=== PATIENT | male | born 1945 | race Caucasian/White ===

== ENCOUNTER 2020-11-15 07:37 | Outpatient (REF) | payer MEDICARE, SELFPAY ==
[2020-11-15 13:47] LABS: MANUAL DIFF FLAG NO
[2020-11-15 13:53] LABS: Basophils Percent Auto 0.4 % (0-2); Eosinophils Absolute Auto 0.1 X10*3/uL (0.0-0.4); Eosinophils Percent Auto 1.8 % (0-4); Hematocrit 40.6 % (42-52); Hemoglobin 13.7 g/dl (14.0-18.0); Imm Gran Abs Auto 0.03 X10*3/uL (0.00-0.03); Imm Gran Pct Auto 0.4 % (0.0-0.4); Lymphocytes Absolute Auto 2.2 X10*3/uL (1.2-4.9); Lymphocytes Percent Auto 30.9 % (20-40); Mean Corpuscular HGB Conc 33.7 g/dl (31.0-36.0); Mean Corpuscular Hemoglobin 30.1 pg (27.0-33.0); Mean Corpuscular Volume 89.2 fL (80-98); Mean Platelet Volume 11.6 fL (9.4-12.4); Monocytes Absolute Auto 0.6 X10*3/uL (0.1-1.2); Neutrophils Absolute Auto 4.2 X10*3/uL (2.0-8.3); Neutrophils Percent Auto 58.5 % (45-73); Platelet Count 263 X10*3/uL (160-400); Red Blood Count 4.55 X10*6/uL (4.60-5.80); Red Cell Distribution Width 11.7 % (11.0-16.0); White Blood Count 7.1 X10*3/uL (4.8-10.8)
[2020-11-15 14:16] LABS: Alanine Aminotransferase 24 U/L (0-40); Albumin Level 4.2 g/dL (3.5-5.0); Alkaline Phosphatase 61 U/L (39-117); Anion Gap 15 (12-20); Aspartate Amino Transferase 16 U/L (5-37); Bilirubin Total 0.8 mg/dL (0.0-1.0); Blood Urea Nitrogen 21 mg/dL (9-16); Carbon Dioxide 26 mmol/L (22-29); Chloride 100 mmol/L (96-108); Cholesterol 158 mg/dL; Estimated Glomerular Filt Rate > 60; Glucose Fasting 107 mg/dL (60-99); HDL Cholesterol 28 mg/dL; LDL Cholesterol Calculated 104 mg/dl; Potassium 3.8 mmol/L (3.3-5.1); Sodium 137 mmol/L (135-145); Total Protein 6.8 g/dL (6.5-8.0); Triglycerides 131 mg/dL
[2020-11-15 14:39] LABS: Prostate Specific Antigen 0.74 ng/mL (<0.05-4.0); Vitamin D 25-OH Total 61.5 ng/mL (>30)
== END 2020-11-15 07:38 | disposition home or self-care (01) ==
LOC: HO.10HDL 07:37
PROVIDERS: Visit Provider Internal Medicine Medical Oncology
DX: I10 Essential (primary) hypertension (principal); E78.00 Pure hypercholesterolemia, unspecified; E66.3 Overweight; Z12.5 Encounter for screening for malignant neoplasm of prostate
CPT/HCPCS: 36415; 80053; 80061; 82306; 84153; 85025

== ENCOUNTER 2021-05-29 07:44 | Outpatient (REF) | payer MEDICARE, SELFPAY ==
[2021-05-29 10:12] LABS: MANUAL DIFF FLAG NO
[2021-05-29 10:23] LABS: Basophils Percent Auto 0.5 % (0-2); Eosinophils Absolute Auto 0.2 X10*3/uL (0.0-0.4); Eosinophils Percent Auto 2.2 % (0-4); Hematocrit 38.9 % (42-52); Hemoglobin 13.2 g/dl (14.0-18.0); Imm Gran Abs Auto 0.04 X10*3/uL (0.00-0.03); Imm Gran Pct Auto 0.5 % (0.0-0.4); Lymphocytes Absolute Auto 2.6 X10*3/uL (1.2-4.9); Lymphocytes Percent Auto 31.7 % (20-40); Mean Corpuscular HGB Conc 33.9 g/dl (31.0-36.0); Mean Corpuscular Hemoglobin 29.1 pg (27.0-33.0); Mean Corpuscular Volume 85.7 fL (80-98); Mean Platelet Volume 11.2 fL (9.4-12.4); Monocytes Absolute Auto 0.7 X10*3/uL (0.1-1.2); Neutrophils Absolute Auto 4.7 X10*3/uL (2.0-8.3); Neutrophils Percent Auto 57.1 % (45-73); Platelet Count 263 X10*3/uL (160-400); Red Blood Count 4.54 X10*6/uL (4.60-5.80); Red Cell Distribution Width 13.3 % (11.0-16.0); White Blood Count 8.2 X10*3/uL (4.8-10.8)
[2021-05-29 11:24] LABS: Alanine Aminotransferase 25 U/L (0-40); Albumin Level 4.1 g/dL (3.5-5.0); Alkaline Phosphatase 54 U/L (39-117); Anion Gap 13 (12-20); Aspartate Amino Transferase 17 U/L (5-37); Bilirubin Total 0.9 mg/dL (0.0-1.0); Blood Urea Nitrogen 15 mg/dL (9-16); Carbon Dioxide 25 mmol/L (22-29); Chloride 100 mmol/L (96-108); Cholesterol 154 mg/dL; Estimated Glomerular Filt Rate > 60; Glucose Fasting 104 mg/dL (60-99); HDL Cholesterol 35 mg/dL; LDL Cholesterol Calculated 92 mg/dl; Sodium 134 mmol/L (135-145); Total Protein 6.5 g/dL (6.5-8.0); Triglycerides 135 mg/dL
== END 2021-05-29 07:45 | disposition home or self-care (01) ==
LOC: HO.10HDL 07:44
PROVIDERS: Visit Provider Internal Medicine Medical Oncology
DX: I10 Essential (primary) hypertension (principal); E66.9 Obesity, unspecified; E78.2 Mixed hyperlipidemia
CPT/HCPCS: 36415; 80053; 80061; 85025

== ENCOUNTER 2021-08-31 08:00 | Outpatient (REF) | payer MEDICARE, SELFPAY ==
[2021-08-31 10:21] LABS: MANUAL DIFF FLAG NO
[2021-08-31 10:29] LABS: Basophils Percent Auto 0.3 % (0-2); Eosinophils Absolute Auto 0.1 X10*3/uL (0.0-0.4); Hematocrit 41.3 % (42.0-52.0); Hemoglobin 14.1 g/dl (14.0-18.0); Imm Gran Abs Auto 0.05 X10*3/uL (0.00-0.03); Imm Gran Pct Auto 0.5 % (0.0-0.4); Lymphocytes Absolute Auto 2.5 X10*3/uL (1.2-4.9); Lymphocytes Percent Auto 27.8 % (20-40); Mean Corpuscular HGB Conc 34.1 g/dl (31.0-36.0); Mean Corpuscular Hemoglobin 29.8 pg (27.0-33.0); Mean Corpuscular Volume 87.3 fL (80.0-98.0); Mean Platelet Volume 10.9 fL (9.4-12.4); Monocytes Absolute Auto 0.8 X10*3/uL (0.1-1.2); Monocytes Percent Auto 8.6 % (2-11); Neutrophils Absolute Auto 5.6 x10*3/uL (2.0-8.3); Neutrophils Percent Auto 61.8 % (45-73); Platelet Count 304 X10*3/uL (160-400); Red Blood Count 4.73 X10*6/uL (4.60-5.80); Red Cell Distribution Width 13.1 % (11.0-16.0); White Blood Count 9.1 X10*3/uL (4.8-10.8)
[2021-08-31 10:45] LABS: Alanine Aminotransferase 30 U/L (0-40); Albumin Level 4.2 g/dL (3.5-5.0); Alkaline Phosphatase 75 U/L (39-117); Anion Gap 13 (12-20); Aspartate Amino Transferase 15 U/L (5-37); Bilirubin Total 1.1 mg/dL (0.0-1.0); Blood Urea Nitrogen 18 mg/dL (9-16); Calcium 9.3 mg/dL (8.4-10.2); Carbon Dioxide 27 mmol/L (22-29); Chloride 96 mmol/L (96-108); Cholesterol 155 mg/dL; Estimated Glomerular Filt Rate > 60; Glucose Fasting 110 mg/dL (60-99); HDL Cholesterol 30 mg/dL; LDL Cholesterol Calculated 97 mg/dl; Potassium 3.9 mmol/L (3.3-5.1); Sodium 132 mmol/L (135-145); Total Protein 6.8 g/dL (6.5-8.0); Triglycerides 142 mg/dL
== END 2021-08-31 08:01 | disposition home or self-care (01) ==
LOC: HO.10HDL 08:00
PROVIDERS: Visit Provider Internal Medicine Medical Oncology
DX: E66.9 Obesity, unspecified (principal); I10 Essential (primary) hypertension; E78.2 Mixed hyperlipidemia
CPT/HCPCS: 36415; 80053; 80061; 85025

== ENCOUNTER 2022-01-08 09:22 | Outpatient (REF) | payer MEDICARE, SELFPAY ==
[2022-01-08 10:39] LABS: MANUAL DIFF FLAG NO
[2022-01-08 10:43] LABS: Basophils Percent Auto 0.5 % (0-2); Eosinophils Absolute Auto 0.2 X10*3/uL (0.0-0.4); Hematocrit 40.9 % (42.0-52.0); Hemoglobin 13.8 g/dl (14.0-18.0); Imm Gran Abs Auto 0.04 X10*3/uL (0.00-0.03); Imm Gran Pct Auto 0.5 % (0.0-0.4); Lymphocytes Absolute Auto 1.9 X10*3/uL (1.2-4.9); Lymphocytes Percent Auto 25.3 % (20-40); Mean Corpuscular HGB Conc 33.7 g/dl (31.0-36.0); Mean Corpuscular Hemoglobin 29.8 pg (27.0-33.0); Mean Corpuscular Volume 88.3 fL (80.0-98.0); Mean Platelet Volume 11.3 fL (9.4-12.4); Monocytes Absolute Auto 0.6 X10*3/uL (0.1-1.2); Monocytes Percent Auto 7.7 % (2-11); Neutrophils Absolute Auto 4.9 x10*3/uL (2.0-8.3); Platelet Count 267 X10*3/uL (160-400); Red Blood Count 4.63 X10*6/uL (4.60-5.80); Red Cell Distribution Width 13.4 % (11.0-16.0); White Blood Count 7.6 X10*3/uL (4.8-10.8)
[2022-01-08 10:58] LABS: Alanine Aminotransferase 29 U/L (0-40); Albumin Level 4.1 g/dL (3.5-5.0); Alkaline Phosphatase 53 U/L (39-117); Anion Gap 13 (12-20); Aspartate Amino Transferase 18 U/L (5-37); Bilirubin Total 0.4 mg/dL (0.0-1.0); Blood Urea Nitrogen 17 mg/dL (9-16); Calcium 9.6 mg/dL (8.4-10.2); Carbon Dioxide 26 mmol/L (22-29); Chloride 99 mmol/L (96-108); Cholesterol 152 mg/dL; Estimated Glomerular Filt Rate > 60; Glucose Fasting 123 mg/dL (60-99); HDL Cholesterol 33 mg/dL; LDL Cholesterol Calculated 87 mg/dl; Potassium 4.2 mmol/L (3.3-5.1); Sodium 134 mmol/L (135-145); Total Protein 6.8 g/dL (6.5-8.0); Triglycerides 161 mg/dL
[2022-01-08 11:13] LABS: PSA,Total (Free>4and<10) 0.51 ng/mL (0.00-4.00)
== END 2022-01-08 09:23 | disposition home or self-care (01) ==
LOC: HO.10HDL 09:22
PROVIDERS: Visit Provider Internal Medicine Medical Oncology
DX: Z12.5 Encounter for screening for malignant neoplasm of prostate (principal); E78.2 Mixed hyperlipidemia; E66.9 Obesity, unspecified
CPT/HCPCS: 36415; 80053; 80061; 84153; 85025

== ENCOUNTER 2022-04-30 08:07 | Outpatient (REF) | payer MEDICARE, SELFPAY ==
[2022-04-30 09:25] LABS: MANUAL DIFF FLAG NO
[2022-04-30 09:28] LABS: Basophils Percent Auto 0.5 % (0-2); Eosinophils Absolute Auto 0.2 X10*3/uL (0.0-0.4); Eosinophils Percent Auto 2.8 % (0-4); Hematocrit 39.5 % (42.0-52.0); Hemoglobin 13.5 g/dl (14.0-18.0); Imm Gran Abs Auto 0.04 X10*3/uL (0.00-0.03); Imm Gran Pct Auto 0.5 % (0.0-0.4); Lymphocytes Absolute Auto 2.3 X10*3/uL (1.2-4.9); Lymphocytes Percent Auto 29.7 % (20-40); Mean Corpuscular HGB Conc 34.2 g/dl (31.0-36.0); Mean Corpuscular Hemoglobin 29.8 pg (27.0-33.0); Mean Corpuscular Volume 87.2 fL (80.0-98.0); Mean Platelet Volume 10.6 fL (9.4-12.4); Monocytes Absolute Auto 0.6 X10*3/uL (0.1-1.2); Monocytes Percent Auto 7.9 % (2-11); Neutrophils Absolute Auto 4.6 x10*3/uL (2.0-8.3); Neutrophils Percent Auto 58.6 % (45-73); Platelet Count 247 X10*3/uL (160-400); Red Blood Count 4.53 X10*6/uL (4.60-5.80); Red Cell Distribution Width 12.5 % (11.0-16.0); White Blood Count 7.8 X10*3/uL (4.8-10.8)
[2022-04-30 09:54] LABS: Alanine Aminotransferase 22 U/L (0-40); Alkaline Phosphatase 58 U/L (39-117); Anion Gap 15 (12-20); Aspartate Amino Transferase 16 U/L (5-37); Bilirubin Total 0.7 mg/dL (0.0-1.0); Blood Urea Nitrogen 13 mg/dL (9-16); Calcium 8.8 mg/dL (8.4-10.2); Carbon Dioxide 23 mmol/L (22-29); Chloride 100 mmol/L (96-108); Cholesterol 153 mg/dL; Estimated Glomerular Filt Rate > 60; Glucose Fasting 125 mg/dL (60-99); HDL Cholesterol 38 mg/dL; LDL Cholesterol Calculated 89 mg/dl; Potassium 4.2 mmol/L (3.3-5.1); Sodium 134 mmol/L (135-145); Total Protein 6.6 g/dL (6.5-8.0); Triglycerides 130 mg/dL
[2022-04-30 10:17] LABS: Vitamin D 25-OH Total 39.7 ng/mL (>30)
== END 2022-04-30 08:08 | disposition home or self-care (01) ==
LOC: HO.10HDL 08:07
PROVIDERS: Visit Provider Internal Medicine Medical Oncology
DX: I10 Essential (primary) hypertension (principal); E78.2 Mixed hyperlipidemia; N40.0 Benign prostatic hyperplasia without lower urinary tract symptoms; E55.9 Vitamin D deficiency, unspecified
CPT/HCPCS: 36415; 80053; 80061; 82306; 85025

== ENCOUNTER 2022-09-10 07:31 | Outpatient (REF) | payer MEDICARE, SELFPAY ==
[2022-09-10 10:49] LABS: MANUAL DIFF FLAG NO
[2022-09-10 10:54] LABS: Basophils Percent Auto 0.3 % (0-2); Eosinophils Absolute Auto 0.2 X10*3/uL (0.0-0.4); Eosinophils Percent Auto 1.7 % (0-4); Hemoglobin 13.1 g/dl (14.0-18.0); Imm Gran Abs Auto 0.07 X10*3/uL (0.00-0.03); Imm Gran Pct Auto 0.8 % (0.0-0.4); Lymphocytes Absolute Auto 2.8 X10*3/uL (1.2-4.9); Lymphocytes Percent Auto 31.2 % (20-40); Mean Corpuscular HGB Conc 34.5 g/dl (31.0-36.0); Mean Corpuscular Hemoglobin 29.6 pg (27.0-33.0); Monocytes Absolute Auto 0.8 X10*3/uL (0.1-1.2); Monocytes Percent Auto 8.5 % (2-11); Neutrophils Absolute Auto 5.2 x10*3/uL (2.0-8.3); Neutrophils Percent Auto 57.5 % (45-73); Platelet Count 328 X10*3/uL (160-400); Red Blood Count 4.42 X10*6/uL (4.60-5.80); White Blood Count 9.1 X10*3/uL (4.8-10.8)
[2022-09-10 11:43] LABS: Alanine Aminotransferase 26 U/L (0-40); Albumin Level 4.1 g/dL (3.5-5.0); Alkaline Phosphatase 63 U/L (39-117); Anion Gap 13 (12-20); Aspartate Amino Transferase 16 U/L (5-37); Bilirubin Total 0.7 mg/dL (0.0-1.0); Blood Urea Nitrogen 21 mg/dL (9-16); Carbon Dioxide 24 mmol/L (22-29); Chloride 99 mmol/L (96-108); Cholesterol 174 mg/dL; Estimated Glomerular Filt Rate > 60; Glucose Fasting 119 mg/dL (60-99); HDL Cholesterol 29 mg/dL; LDL Cholesterol Calculated 111 mg/dl; Potassium 4.1 mmol/L (3.3-5.1); Prostate Specific Antigen 0.56 ng/mL (<0.05-4.0); Sodium 132 mmol/L (135-145); Total Protein 6.6 g/dL (6.5-8.0); Triglycerides 173 mg/dL; Vitamin D 25-OH Total 44.1 ng/mL (>30)
== END 2022-09-10 07:32 | disposition home or self-care (01) ==
LOC: HO.10HDL 07:31
PROVIDERS: Visit Provider Internal Medicine Medical Oncology
DX: Z12.5 Encounter for screening for malignant neoplasm of prostate (principal); I10 Essential (primary) hypertension; E66.9 Obesity, unspecified; E78.2 Mixed hyperlipidemia; N40.0 Benign prostatic hyperplasia without lower urinary tract symptoms
CPT/HCPCS: 36415; 80053; 80061; 82306; 84153; 85025

== ENCOUNTER 2023-01-01 08:53 | Outpatient (REF) | payer MEDICARE, SELFPAY ==
[2023-01-01 10:45] LABS: MANUAL DIFF FLAG NO
[2023-01-01 10:56] LABS: Basophils Absolute Auto 0.1 X10*3/uL (0.0-0.2); Basophils Percent Auto 0.6 % (0-2); Eosinophils Absolute Auto 0.1 X10*3/uL (0.0-0.4); Eosinophils Percent Auto 1.7 % (0-4); Hematocrit 41.2 % (42.0-52.0); Hemoglobin 13.9 g/dl (14.0-18.0); Imm Gran Abs Auto 0.05 X10*3/uL (0.00-0.03); Imm Gran Pct Auto 0.6 % (0.0-0.4); Lymphocytes Absolute Auto 2.3 X10*3/uL (1.2-4.9); Lymphocytes Percent Auto 27.4 % (20-40); Mean Corpuscular HGB Conc 33.7 g/dl (31.0-36.0); Mean Corpuscular Volume 85.8 fL (80.0-98.0); Mean Platelet Volume 11.2 fL (9.4-12.4); Monocytes Absolute Auto 0.7 X10*3/uL (0.1-1.2); Monocytes Percent Auto 8.1 % (2-11); Neutrophils Absolute Auto 5.2 x10*3/uL (2.0-8.3); Neutrophils Percent Auto 61.6 % (45-73); Platelet Count 271 X10*3/uL (160-400); Red Cell Distribution Width 12.9 % (11.0-16.0); White Blood Count 8.4 X10*3/uL (4.8-10.8)
[2023-01-01 11:15] LABS: Alanine Aminotransferase 26 U/L (0-40); Albumin Level 3.9 g/dL (3.5-5.0); Alkaline Phosphatase 62 U/L (39-117); Anion Gap 16 (12-20); Aspartate Amino Transferase 16 U/L (5-37); Bilirubin Total 1.2 mg/dL (0.0-1.0); Blood Urea Nitrogen 20 mg/dL (9-16); Calcium 9.1 mg/dL (8.4-10.2); Carbon Dioxide 24 mmol/L (22-29); Chloride 99 mmol/L (96-108); Cholesterol 169 mg/dL; Estimated Glomerular Filt Rate > 60; Glucose Fasting 129 mg/dL (60-99); HDL Cholesterol 30 mg/dL; LDL Cholesterol Calculated 110 mg/dl; Potassium 4.1 mmol/L (3.3-5.1); Sodium 135 mmol/L (135-145); Total Protein 6.5 g/dL (6.5-8.0); Triglycerides 149 mg/dL
[2023-01-01 11:52] LABS: Vitamin D 25-OH Total > 154.2 ng/mL (>30)
== END 2023-01-01 08:54 | disposition home or self-care (01) ==
LOC: HO.10HDL 08:53
PROVIDERS: Visit Provider Internal Medicine Medical Oncology
DX: I10 Essential (primary) hypertension (principal); E66.9 Obesity, unspecified; E78.2 Mixed hyperlipidemia; E55.9 Vitamin D deficiency, unspecified
CPT/HCPCS: 36415; 80053; 80061; 82306; 85025

== ENCOUNTER 2023-05-07 09:02 | Outpatient (REF) | payer MEDICARE, SELFPAY ==
[2023-05-07 11:05] LABS: MANUAL DIFF FLAG NO
[2023-05-07 11:08] LABS: Basophils Absolute Auto 0.1 X10*3/uL (0.0-0.2); Basophils Percent Auto 0.6 % (0-2); Eosinophils Absolute Auto 0.2 X10*3/uL (0.0-0.4); Eosinophils Percent Auto 2.1 % (0-4); Hematocrit 40.8 % (42.0-52.0); Hemoglobin 13.5 g/dl (14.0-18.0); Imm Gran Abs Auto 0.06 X10*3/uL (0.00-0.03); Imm Gran Pct Auto 0.7 % (0.0-0.4); Lymphocytes Absolute Auto 2.1 X10*3/uL (1.2-4.9); Lymphocytes Percent Auto 25.2 % (20-40); Mean Corpuscular HGB Conc 33.1 g/dl (31.0-36.0); Mean Corpuscular Hemoglobin 28.5 pg (27.0-33.0); Mean Corpuscular Volume 86.3 fL (80.0-98.0); Mean Platelet Volume 10.9 fL (9.4-12.4); Monocytes Absolute Auto 0.7 X10*3/uL (0.1-1.2); Monocytes Percent Auto 7.9 % (2-11); Neutrophils Absolute Auto 5.3 x10*3/uL (2.0-8.3); Neutrophils Percent Auto 63.5 % (45-73); Platelet Count 277 X10*3/uL (160-400); Red Blood Count 4.73 X10*6/uL (4.60-5.80); White Blood Count 8.4 X10*3/uL (4.8-10.8)
[2023-05-07 12:10] LABS: Alanine Aminotransferase 22 U/L (0-40); Albumin Level 3.7 g/dL (3.5-5.0); Alkaline Phosphatase 55 U/L (39-117); Anion Gap 11 (12-20); Aspartate Amino Transferase 19 U/L (5-37); Bilirubin Total 0.7 mg/dL (0.0-1.0); Blood Urea Nitrogen 16 mg/dL (9-16); Calcium 9.3 mg/dL (8.4-10.2); Carbon Dioxide 26 mmol/L (22-29); Chloride 100 mmol/L (96-108); Cholesterol 134 mg/dL; Estimated Glomerular Filt Rate > 60; Glucose Fasting 133 mg/dL (60-99); HDL Cholesterol 32 mg/dL; LDL Cholesterol Calculated 75 mg/dl; Potassium 3.9 mmol/L (3.3-5.1); Sodium 133 mmol/L (135-145); Total Protein 6.8 g/dL (6.5-8.0); Triglycerides 139 mg/dL
== END 2023-05-07 09:03 | disposition home or self-care (01) ==
LOC: HO.10HDL 09:02
PROVIDERS: Visit Provider Internal Medicine Medical Oncology
DX: E66.9 Obesity, unspecified (principal); I10 Essential (primary) hypertension; E78.2 Mixed hyperlipidemia; E55.9 Vitamin D deficiency, unspecified
CPT/HCPCS: 36415; 80053; 80061; 82306; 85025

== ENCOUNTER 2023-09-09 07:39 | Outpatient (REF) | payer MEDICARE, SELFPAY ==
[2023-09-09 10:29] LABS: MANUAL DIFF FLAG NO
[2023-09-09 10:35] LABS: Basophils Percent Auto 0.4 % (0-2); Eosinophils Absolute Auto 0.2 X10*3/uL (0.0-0.4); Eosinophils Percent Auto 2.3 % (0-4); Hematocrit 40.6 % (42.0-52.0); Hemoglobin 13.5 g/dl (14.0-18.0); Imm Gran Abs Auto 0.03 X10*3/uL (0.00-0.03); Imm Gran Pct Auto 0.4 % (0.0-0.4); Lymphocytes Absolute Auto 2.2 X10*3/uL (1.2-4.9); Lymphocytes Percent Auto 28.3 % (20-40); Mean Corpuscular HGB Conc 33.3 g/dl (31.0-36.0); Mean Corpuscular Hemoglobin 29.2 pg (27.0-33.0); Mean Corpuscular Volume 87.9 fL (80.0-98.0); Monocytes Absolute Auto 0.7 X10*3/uL (0.1-1.2); Monocytes Percent Auto 8.6 % (2-11); Neutrophils Absolute Auto 4.6 x10*3/uL (2.0-8.3); Platelet Count 252 X10*3/uL (160-400); Red Blood Count 4.62 X10*6/uL (4.60-5.80); Red Cell Distribution Width 13.3 % (11.0-16.0); White Blood Count 7.7 X10*3/uL (4.8-10.8)
[2023-09-09 11:06] LABS: Alanine Aminotransferase 27 U/L (0-40); Albumin Level 3.9 g/dL (3.5-5.0); Alkaline Phosphatase 58 U/L (39-117); Anion Gap 13 (12-20); Aspartate Amino Transferase 17 U/L (5-37); Bilirubin Total 0.8 mg/dL (0.0-1.0); Blood Urea Nitrogen 18 mg/dL (9-16); Calcium 9.3 mg/dL (8.4-10.2); Carbon Dioxide 25 mmol/L (22-29); Chloride 102 mmol/L (96-108); Cholesterol 153 mg/dL (<200); Estimated Glomerular Filt Rate > 60; Glucose Fasting 133 mg/dL (60-99); HDL Cholesterol 31 mg/dL (>40); LDL Cholesterol Calculated 92 mg/dL (<100); Potassium 3.5 mmol/L (3.3-5.1); Sodium 136 mmol/L (135-145); Total Protein 6.8 g/dL (6.5-8.0); Triglycerides 151 mg/dL (<150)
[2023-09-09 11:23] LABS: Prostate Specific Antigen 0.68 ng/mL (<0.05-4.0)
== END 2023-09-09 07:40 | disposition home or self-care (01) ==
LOC: HO.10HDL 07:39
PROVIDERS: Visit Provider Internal Medicine Medical Oncology
DX: Z12.5 Encounter for screening for malignant neoplasm of prostate (principal); E66.9 Obesity, unspecified; E78.2 Mixed hyperlipidemia; N40.0 Benign prostatic hyperplasia without lower urinary tract symptoms
CPT/HCPCS: 36415; 80053; 80061; 84153; 85025

== ENCOUNTER 2024-03-26 07:28 | Outpatient (REF) | payer MEDICARE, SELFPAY ==
[2024-03-26 10:42] LABS: Basophils Percent Auto 0.5 % (0-2); Eosinophils Absolute Auto 0.2 X10*3/uL (0.0-0.4); Eosinophils Percent Auto 1.9 % (0-4); Hematocrit 39.7 % (42.0-52.0); Hemoglobin 13.7 g/dl (14.0-18.0); Imm Gran Abs Auto 0.03 X10*3/uL (0.00-0.03); Imm Gran Pct Auto 0.4 % (0.0-0.4); Lymphocytes Absolute Auto 2.5 X10*3/uL (1.2-4.9); Lymphocytes Percent Auto 31.7 % (20-40); MANUAL DIFF FLAG NO; Mean Corpuscular HGB Conc 34.5 g/dl (31.0-36.0); Mean Corpuscular Hemoglobin 29.8 pg (27.0-33.0); Mean Corpuscular Volume 86.5 fL (80.0-98.0); Mean Platelet Volume 10.7 fL (9.4-12.4); Monocytes Absolute Auto 0.7 X10*3/uL (0.1-1.2); Monocytes Percent Auto 8.5 % (2-11); Neutrophils Absolute Auto 4.4 x10*3/uL (2.0-8.3); Platelet Count 264 X10*3/uL (160-400); Red Blood Count 4.59 X10*6/uL (4.60-5.80); Red Cell Distribution Width 13.1 % (11.0-16.0); White Blood Count 7.8 X10*3/uL (4.8-10.8)
[2024-03-26 11:02] LABS: Alanine Aminotransferase 29 U/L (0-40); Alkaline Phosphatase 52 U/L (39-117); Anion Gap 12 (12-20); Aspartate Amino Transferase 21 U/L (5-37); Bilirubin Total 0.9 mg/dL (0.0-1.0); Blood Urea Nitrogen 15 mg/dL (9-16); Calcium 9.1 mg/dL (8.4-10.2); Carbon Dioxide 24 mmol/L (22-29); Chloride 99 mmol/L (96-108); Cholesterol 157 mg/dL (<200); Estimated Glomerular Filt Rate > 60; Glucose Fasting 133 mg/dL (60-99); HDL Cholesterol 32 mg/dL (>40); LDL Cholesterol Calculated 94 mg/dL (<100); Potassium 3.7 mmol/L (3.3-5.1); Sodium 131 mmol/L (135-145); Total Protein 6.8 g/dL (6.5-8.0); Triglycerides 158 mg/dL (<150)
== END 2024-03-26 07:29 | disposition home or self-care (01) ==
LOC: HO.10HDL 07:28
PROVIDERS: Visit Provider Internal Medicine Medical Oncology
DX: E66.9 Obesity, unspecified (principal); E78.2 Mixed hyperlipidemia
CPT/HCPCS: 36415; 80053; 80061; 85025

== ENCOUNTER 2024-07-14 08:46 | Outpatient (REF) | payer MEDICARE, SELFPAY ==
[2024-07-14 11:00] LABS: MANUAL DIFF FLAG NO
[2024-07-14 11:01] LABS: Basophils Absolute Auto 0.1 X10*3/uL (0.0-0.2); Basophils Percent Auto 0.6 % (0-2); Eosinophils Absolute Auto 0.2 X10*3/uL (0.0-0.4); Hematocrit 40.1 % (42.0-52.0); Hemoglobin 13.6 g/dl (14.0-18.0); Imm Gran Abs Auto 0.05 X10*3/uL (0.00-0.03); Imm Gran Pct Auto 0.6 % (0.0-0.4); Lymphocytes Absolute Auto 2.2 X10*3/uL (1.2-4.9); Lymphocytes Percent Auto 26.1 % (20-40); Mean Corpuscular HGB Conc 33.9 g/dl (31.0-36.0); Mean Corpuscular Hemoglobin 30.2 pg (27.0-33.0); Mean Corpuscular Volume 89.1 fL (80.0-98.0); Mean Platelet Volume 10.6 fL (9.4-12.4); Monocytes Absolute Auto 0.6 X10*3/uL (0.1-1.2); Monocytes Percent Auto 7.1 % (2-11); Neutrophils Absolute Auto 5.5 x10*3/uL (2.0-8.3); Neutrophils Percent Auto 63.6 % (45-73); Platelet Count 266 X10*3/uL (160-400); Red Cell Distribution Width 13.6 % (11.0-16.0); White Blood Count 8.6 X10*3/uL (4.8-10.8)
[2024-07-14 11:10] LABS: Estimated Average Glucose 143 mg/dL; Hemoglobin A1C 166.4889 umol/L; Hemoglobin A1c % 6.6 % (<6.0); Total Hemoglobin (HGBA1C) 3453.9074 umol/L
[2024-07-14 11:30] LABS: Alanine Aminotransferase 27 U/L (0-40); Alkaline Phosphatase 51 U/L (39-117); Anion Gap 10 (12-20); Aspartate Amino Transferase 17 U/L (5-37); Bilirubin Total 0.7 mg/dL (0.0-1.0); Blood Urea Nitrogen 19 mg/dL (9-16); Calcium 9.4 mg/dL (8.4-10.2); Carbon Dioxide 28 mmol/L (22-29); Chloride 102 mmol/L (96-108); Cholesterol 158 mg/dL (<200); Estimated Glomerular Filt Rate > 60; Glucose Fasting 134 mg/dL (60-99); HDL Cholesterol 31 mg/dL (>40); LDL Cholesterol Calculated 99 mg/dL (<100); Sodium 136 mmol/L (135-145); Total Protein 6.8 g/dL (6.5-8.0); Triglycerides 142 mg/dL (<150)
== END 2024-07-14 08:47 | disposition home or self-care (01) ==
LOC: HO.10HDL 08:46
PROVIDERS: Visit Provider Internal Medicine Medical Oncology
DX: Z13.1 Encounter for screening for diabetes mellitus (principal); E66.9 Obesity, unspecified; E78.00 Pure hypercholesterolemia, unspecified; E78.2 Mixed hyperlipidemia
CPT/HCPCS: 36415; 80053; 80061; 83036; 85025

== ENCOUNTER 2024-09-24 09:40 | Outpatient (REF) | payer MEDICARE, SELFPAY ==
--- OUTSIDE RECORDS SUMMARY | 2024-09-24 09:44 | XMS_ITS ---
Author Organization Elías Rangel III, MD Address [address] [place] [address] Care Team Providers Care Application Helper Name Role Phone Elías Rangel Primary Care Provider Allergies Allergen (clinical drug ingredient) Drug/Non Drug Allergy documented on EMR Reaction Allergy Type Onset Date Status penicillin G Penicillin G Sodium Unknown Drug Allergy Active REASON FOR VISIT sprained leg hunting left thigh end oct cdh er no fx then pvsands Medications Medication SIG (Take, Route, Frequency, Duration) Notes Start Date End Date Status Lisinopril 40 MG 1 tablet Orally Once a day Active Omeprazole 20 MG 1 tablet 30 minutes before morning meal Orally Once a day Active Vitamin D 50 MCG (1999) 1 capsule Ora lly Once a day Active Aspir-Low 81 MG 1 tablet Orally Once a day Active Anusol-HC 25 MG 1 suppository Rectal Three times a day Active Atorvastatin Calcium 10 MG 1 tablet Oral ly Saturday, Saturday, and Saturday Active hydroCHLOROthiazide 25 MG 1 tablet in morning Orally Once a day Active Amitriptyline HCl 25 MG 1 tablet at bedt rey Orally Once a day Active Metoprolol Succinate ER 50 MG 1.5 tablet s Orally Once a day 11/08/2020 Active Social History Tobacco Use: Social History Observation Description Date Details (start date - stop date) Never Smoker NA - NA Sex Assigned At : Social History Observation Description Sex Assigned At Male Tobacco Use/Smoking Question Answer Notes Patient is a nonsmoker Additional Findings: Tobacco Non-User Aggressive non-smoker Vital Signs Temperature 97.9 degrees Fahrenheit 09/24/20 24 Blood pressure systolic 175 mm Hg 09/24/20 24 Blood pressure diastolic 89 mm Hg 024 Heart Rate 61 /min 09/24/2024 Height 64 in 09/24/2024 Weight 201 lbs 09/24/2024 BMI 34.5 kg/m2 09/24/2024 Encounters Encounter Location Date Provider Diagnosis Elías Rangel III, MD [address] [place] [address] [place] [address] 09/24/2024 Elías Rangel Obesity (BMI 30.0-34 .9) E66.9 ; Mixed hyperlipidemia E78.2 ; BPH (benign prostatic hyperplasia) N40.0 and Prediabetes R73.03 Assessments Encounter Date Diagnosis (ICD Code) Assessment Notes Treat ment Notes Treatment Clinical Notes 09/24/2024 Obesity (BMI 30.0-34.9) (ICD-10 - E66.9) He has lost 5 pounds. We discussed his weight loss strategy at length. He will try to lose weight at a rate of one half of a pound per week through a diet restricted in fat calories and sodium combined with regular exercise. 09/24/2024 Mixed hyperlipidemia (ICD-10 - E78.2) 09/24/2024 BPH (benign prostati c hyperplasia) (ICD-10 - N40.0) 09/24/2024 Prediabetes (ICD-10 - R73.03) Plan Of Treatment Medication Medication Name Sig Start Date Stop Date Notes Lisinopril 40 MG 1 tablet Orally Once a day Omeprazole 20 MG 1 tablet 30 minutes before morning meal Orally Once a day Vitamin D 50 MCG (1999) 1 capsule Orally Once a day Aspir-Low 81 MG 1 tablet Orally Once a day Anusol-HC 25 MG 1 suppository Rectal Three times a day Atorvastatin Calcium 10 MG 1 tablet Oral ly Saturday, Saturday, and Saturday hydroCHLOROthiazide 25 MG 1 tablet in morning Orally Once a day Amitriptyline HCl 25 MG 1 tablet at bedt rey Orally Once a day Metoprolol Succinate ER 50 MG 1.5 tablet s Orally Once a day 11/08/2020 Pending Test Test Name Order Date PROFILE, FASTING (COMPREHENSIVE METABOLI C) 09/24/2024 PSA, TOTAL 09/24/2024 CBC WITH AUTO DIFF 09/24/2024 Lipid Panel 09/24/2024 Hemoglobin A1c 09/24/2024 Next Appt Details Follow Up: 4 Months, Reason: OV Provider Name:Elías Rangel, 12/07/2024 02:00:00 PM, [address], [place], [address], Progress Notes * KORY ELI DDOB: [birth year] (79 yo M)Acc No.[id number]:09/24/2024 Progress Notes Patient:?KORY ELI Provider:?Elías Rangel MD :1945???Age:79 Y???Sex:Male Hossein e:09/24/2024 Address:[address] [place], [place] [address] Subjective: * Chief Complaints: * ???1. Sprained leg hunting l eft thigh end jun cdh er no fx then pvsands. * HPI: ???COVID-19 Screening:?Questions?Have you had any new onset fever, chills, cough, congestion, sore throat, shortness of breath, muscle aches??No * ROS:?General/Constitutional:?pain?only normal aches and pains.?Chills?denies.?Fatigue?admits.?Fever?denies.?ENT:?Decreased hearing?denies.?Respiratory:?Cough?denies.?Cardiovascular:?Chest pain with exertion?denies.?Dyspnea on exertion?denies.?Shortness of breath?denies.?Gastrointestinal:?Constipation?denies.?Decreased appetite?denies.?Diarrhea?denies.?Heartburn?denies.?Nausea?denies.?Rectal bleeding?denies.?Vomiting?denies.?Hematology:?bruising?denies.?petechiae?denies.?Swollen glands?none have been noted.?Genitourinary:?Frequent urination?denies.?Musculoskeletal:?Muscle aches?denies.?Painful joints?denies.?Sciatica?denies.?Weakness?denies.?Skin:?Itching?denies.?Rash?denies.?Skin lesion(s)?denies.?Neurologic:?Difficulty speaking?denies.?Dizziness?denies.?Headache?denies.?Low back pain?denies.?Psychiatric:?Depressed mood?denies.? * Medical History:?GERD (gastr oesophageal reflux disease), Hypertension, Depression, Hyperlipidemia, Allergic to penicillin, Obesity, Hemorrhoids, Hearing loss, Tendinitis, PTSD. * Surgical History:?No history . * Hospitalization/Major Diagno stic Procedure:?diverticulitis [facility] 02/2020, No history . * Family History:?Father: dece ased 74 yrs, Obstruction of carotid artery, diabetes mellitus, coronary artery disease.?Mother: 91 yrs, Anxiety and hypotension.?Siblings: alive.?1 brother(s) . 2 son(s) . .? He says his sons are healthy and well. He has 1 brother that has no information about his health. One son has hypertension. He is not aware of any family history of mental illness or substance use disorder or addiction. * Social History:?Tobacco Use:?Tobacco Use/Smoking?Patient is a?nonsmoker ?Additional Findings: Tobacco Non-User?Aggressive non-smoker ???He was born in [facility]. He worked in the [employer] in [place]. 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 He has 2 sons Hugo Burnette. He is . He lives in [facility]. He is a . His blood type is A+. * Medications:?Taking Metoprol ol Succinate ER 50 MG Tablet Extended Release 24 Hour 1.5 tablets Orally Once a day , Taking Aspir-Low 81 MG Tablet Delayed Release 1 tablet Orally Once a day , Taking Omeprazole 20 MG Tablet Delayed Release 1 tablet 30 minutes before morning meal Orally Once a day , Taking Vitamin D 50 MCG (1999 UT) Capsule 1 capsule Orally Once a day , Taking Anusol-HC 25 MG Suppository 1 suppository Rectal Three times a day , Taking Lisinopril 40 MG Tablet 1 tablet Orally Once a day , Taking Atorvastatin Calcium 10 MG Tablet 1 tablet Orally Saturday, Saturday, and Saturday , Taking Amitriptyline HCl 25 MG Tablet 1 tablet at bedtime Orally Once a day , Taking hydroCHLOROthiazide 25 MG Tablet 1 tablet in the morning Orally Once a day , Medication List reviewed and reconciled with the patient * Allergies:?Penicillin G Sodi um. Objective: * Vitals:?Ht: 64, Wt:201, BMI: 34.5, BP:175/89, HR:61, Temp:97.9, Wt-k.17. * ???Past Orders: Lab:Complete Blood Count Aut o Diff * Collection Date 07/14/2024 03/26/2024 09/09/2023 Collection Time 09:00 AM 07:30 AM 07:50 AM Order Date 07/14/2024 03/26/2024 09/09/2023 White Blood Count 8.6 (Ref Range: 4.8-10.8 X10*3/uL) 7.8 (Ref Range: 4.8-10.8 X10*3/uL) 7.7 (Ref Range: 4.8-10.8 X10*3/uL) Red Blood Count 4.50?L (Ref Range: 4.60-5.80 X10*6/uL) 4.59?L (Ref Range: 4.60-5.80 X10*6/uL) 4.62 (Ref Range: 4.60-5.80 X10*6/uL) Hemoglobin 13.6?L (Ref Range: 14.0-18.0 g/dl) 13.7?L (Ref Range: 14.0-18.0 g/dl) 13.5?L (Ref Range: 14.0-18.0 g/dl) Hematocrit 40.1?L (Ref Range: 42.0-52.0 %) 39.7?L (Ref Range: 42.0-52.0 %) 40.6?L (Ref Range: 42.0-52.0 %) Mean Corpuscular Volume 89.1 (Ref Range: 80.0-98.0 fL) 86.5 (Ref Range: 80.0-98.0 fL) 87.9 (Ref Range: 80.0-98.0 fL) Mean Corpuscular Hemoglobin 30.2 (Ref Range: 27.0-33.0 pg) 29.8 (Ref Range: 27.0-33.0 pg) 29.2 (Ref Range: 27.0-33.0 pg) Mean Corpuscular HGB Conc 33.9 (Ref Range: 31.0-36.0 g/dl) 34.5 (Ref Range: 31.0-36.0 g/dl) 33.3 (Ref Range: 31.0-36.0 g/dl) Red Cell Distribution Width 13.6 (Ref Range: 11.0-16.0 %) 13.1 (Ref Range: 11.0-16.0 %) 13.3 (Ref Range: 11.0-16.0 %) Platelet Count 266 (Ref Range: 160-400 X10*3/uL) 264 (Ref Range: 160-400 X10*3/uL) 252 (Ref Range: 160-400 X10*3/uL) Mean Platelet Volume 10.6 (Ref Range: 9.4-12.4 fL) 10.7 (Ref Range: 9.4-12.4 fL) 11.0 (Ref Range: 9.4-12.4 fL) Neutrophils Percent Auto 63.6 (Ref Range: 45-73 %) 57.0 (Ref Range: 45-73 %) 60.0 (Ref Range: 45-73 %) Imm Gran Pct Auto 0.6?H (Ref Range: 0.0-0.4 %) 0.4 (Ref Range: 0.0-0.4 %) 0.4 (Ref Range: 0.0-0.4 %) Lymphocytes Percent Auto 26.1 (Ref Range: 20-40 %) 31.7 (Ref Range: 20-40 %) 28.3 (Ref Range: 20-40 %) Monocytes Percent Auto 7.1 (Ref Range: 2-11 %) 8.5 (Ref Range: 2-11 %) 8.6 (Ref Range: 2-11 %) Eosinophils Percent Auto 2.0 (Ref Range: 0-4 %) 1.9 (Ref Range: 0-4 %) 2.3 (Ref Range: 0-4 %) Basophils Percent Auto 0.6 (Ref Range: 0-2 %) 0.5 (Ref Range: 0-2 %) 0.4 (Ref Range: 0-2 %) NRBC Pct Auto 0.0 (Ref Range: 0.0-0.2 /100WBC) 0.0 (Ref Range: 0.0-0.2 /100WBC) 0.0 (Ref Range: 0.0-0.2 /100WBC) Neutrophils Absolute Auto 5.5 (Ref Range: 2.0-8.3 x10*3/uL) 4.4 (Ref Range: 2.0-8.3 x10*3/uL) 4.6 (Ref Range: 2.0-8.3 x10*3/uL) Imm Gran Abs Auto 0.05?H (Ref Range: 0.00-0.03 X10*3/uL) 0.03 (Ref Range: 0.00-0.03 X10*3/uL) 0.03 (Ref Range: 0.00-0.03 X10*3/uL) Lymphocytes Absolute Auto 2.2 (Ref Range: 1.2-4.9 X10*3/uL) 2.5 (Ref Range: 1.2-4.9 X10*3/uL) 2.2 (Ref Range: 1.2-4.9 X10*3/uL) Monocytes Absolute Auto 0.6 (Ref Range: 0.1-1.2 X10*3/uL) 0.7 (Ref Range: 0.1-1.2 X10*3/uL) 0.7 (Ref Range: 0.1-1.2 X10*3/uL) Eosinophils Absolute Auto 0.2 (Ref Range: 0.0-0.4 X10*3/uL) 0.2 (Ref Range: 0.0-0.4 X10*3/uL) 0.2 (Ref Range: 0.0-0.4 X10*3/uL) Basophils Absolute Auto 0.1 (Ref Range: 0.0-0.2 X10*3/uL) 0.0 (Ref Range: 0.0-0.2 X10*3/uL) 0.0 (Ref Range: 0.0-0.2 X10*3/uL) NRBC Abs Auto 0.000 (Ref Range: 0.0-0.012 X10*3/uL) 0.000 (Ref Range: 0.0-0.012 X10*3/uL) 0.000 (Ref Range: 0.0-0.012 X10*3/uL) ???Lab:Hemoglobin A1c (Order Date - 07/14/2024) (Collection Date & Time - 07/14/2024 09:00 AM)?ValueReference Range?Hemoglobin A1c %6.6H<6.0 - %?Estimated Average Fryedfl564- mg/dL * Lab:Lipid Panel * Collection Date 07/14/2024 03/26/2024 09/09/2023 Collection Time 09:00 AM 07:30 AM 07:50 AM Order Date 07/14/2024 03/26/2024 09/09/2023 Triglycerides 142 (Ref Range: <150 mg/dL) 158?H (Ref Range: <150 mg/dL) 151?H (Ref Range: <150 mg/dL) Cholesterol 158 (Ref Range: <200 mg/dL) 157 (Ref Range: <200 mg/dL) 153 (Ref Range: <200 mg/dL) LDL Cholesterol Calculated 99 (Ref Range: <100 mg/dL) 94 (Ref Range: <100 mg/dL) 92 (Ref Range: <100 mg/dL) HDL Cholesterol 31?L (Ref Range: >40 mg/dL) 32?L (Ref Range: >40 mg/dL) 31?L (Ref Range: >40 mg/dL) * Lab:Comprehensive Molt. Pane l Fast * Collection Date 07/14/2024 03/26/2024 09/09/2023 Collection Time 09:00 AM 07:30 AM 07:50 AM Order Date 07/14/2024 03/26/2024 09/09/2023 Sodium 136 (Ref Range: 135-145 mmol/L) 131?L (Ref Range: 135-145 mmol/L) 136 (Ref Range: 135-145 mmol/L) Bilirubin Total 0.7 (Ref Range: 0.0-1.0 mg/dL) 0.9 (Ref Range: 0.0-1.0 mg/dL) 0.8 (Ref Range: 0.0-1.0 mg/dL) Aspartate Amino Transferase 17 (Ref Range: 5-37 U/L) 21 (Ref Range: 5-37 U/L) 17 (Ref Range: 5-37 U/L) Alanine Aminotransferase 27 (Ref Range: 0-40 U/L) 29 (Ref Range: 0-40 U/L) 27 (Ref Range: 0-40 U/L) Total Protein 6.8 (Ref Range: 6.5-8.0 g/dL) 6.8 (Ref Range: 6.5-8.0 g/dL) 6.8 (Ref Range: 6.5-8.0 g/dL) Albumin Level 4.0 (Ref Range: 3.5-5.0 g/dL) 4.0 (Ref Range: 3.5-5.0 g/dL) 3.9 (Ref Range: 3.5-5.0 g/dL) Alkaline Phosphatase 51 (Ref Range: 39-117 U/L) 52 (Ref Range: 39-117 U/L) 58 (Ref Range: 39-117 U/L) Potassium 4.0 (Ref Range: 3.3-5.1 mmol/L) 3.7 (Ref Range: 3.3-5.1 mmol/L) 3.5 (Ref Range: 3.3-5.1 mmol/L) Chloride 102 (Ref Range: 96-108 mmol/L) 99 (Ref Range: 96-108 mmol/L) 102 (Ref Range: 96-108 mmol/L) Carbon Dioxide 28 (Ref Range: 22-29 mmol/L) 24 (Ref Range: 22-29 mmol/L) 25 (Ref Range: 22-29 mmol/L) Anion Gap 10?L (Ref Range: 12-20) 12 (Ref Range: 12-20) 13 (Ref Range: 12-20) Blood Urea Nitrogen 19?H (Ref Range: 9-16 mg/dL) 15 (Ref Range: 9-16 mg/dL) 18?H (Ref Range: 9-16 mg/dL) Creatinine 1.12 (Ref Range: 0.5-1.4 mg/dL) 0.90 (Ref Range: 0.5-1.4 mg/dL) 1.00 (Ref Range: 0.5-1.4 mg/dL) Estimated Glomerular Filt Rate > 60 > 60 > 60 Glucose Fasting 134?H (Ref Range: 60-99 mg/dL) 133?H (Ref Range: 60-99 mg/dL) 133?H (Ref Range: 60-99 mg/dL) Calcium 9.4 (Ref Range: 8.4-10.2 mg/dL) 9.1 (Ref Range: 8.4-10.2 mg/dL) 9.3 (Ref Range: 8.4-10.2 mg/dL) * Examination: ???General Examination: ?GENERAL APPEARANCE:?pleasant, well nourished, well developed, in no acute distress, calm and relaxed.?HEAD:?atraumatic, normocephalic.?EYES:?eomi, perrla, anicteric, conjugate.?EARS:?normal.?NOSE:?septum intact.?ORAL CAVITY:?normal, unremarkable.?NECK/THYROID:?no jugular venous distention, no carotid bruit, thyroid normal.?LYMPH NODES:?no enlarged lymph nodes,spleen normal.?SKIN:?no suspicious lesions, anicteric.?HEART:?no clicks, gallops, murmurs, or rubs, regular rhythm, S1, S2 normal, no s3, or vascular bruits.?LUNGS:?clear to auscultation .?BREASTS:??no masses palpable bilaterally.?ABDOMEN:?bowel sounds normal, no ascites, no organomegaly, no mass.?RECTAL EXAM:?not examined.?MUSCULOSKELETAL:?extremities unremarkable, no clubbing, cyanosis or edema.?PERIPHERAL PULSES:?normal.?NEUROLOGIC:?alert and oriented, cranial nerves 2-12 grossly intact, deep tendon reflexes 2+ symmetrical, motor strength normal upper and lower extremities, sensory exam intact.?PSYCH:?alert, oriented.? Assessment: * Assessment: 1.?Obesity (BMI 30.0-34.9) - E66.9???Notes :He has lost 5 pounds. We discussed his weight loss strategy at length. He will try to lose weight at a rate of one half of a pound per week through a diet restricted in fat calories and sodium combined with regular exercise.???2.?Mixed hyperlipidemia - E78.2???3.?BPH (benign prostatic hyperplasia) - N40.0???4.?Prediabetes - R73.03??? Plan: * Treatment: 2.?Mixed hyperlipidemia?LAB: PROFILE, FASTING (COMPREHENSIVE METABOLIC) ?LAB: PSA, TOTAL ?LAB: CBC WITH AUTO DIFF ?LAB: Lipid Panel ?LAB: Hemoglobin A1c 3.?BPH (benign prostatic hyp erplasia)?LAB: PROFILE, FASTING (COMPREHENSIVE METABOLIC) ?LAB: PSA, TOTAL ?LAB: CBC WITH AUTO DIFF ?LAB: Lipid Panel ?LAB: Hemoglobin A1c 4.?Prediabetes?LAB: PROFILE, FASTING (COMPREHENSIVE METABOLIC) ?LAB: PSA, TOTAL ?LAB: CBC WITH AUTO DIFF ?LAB: Lipid Panel ?LAB: Hemoglobin A1c * Preventive Medicine:? ??Counseling:?Care goal follow-up plan:?Counseling for abnormal BMI given?Yes ?Above Normal BMI Follow-up?Dietary management education, guidance, and counseling, Dietary needs education, Exercise promotion: strength training, Exercise promotion: stretching, Feeding regime, Giving encouragement to exercise, Lifestyle education regarding diet, Nutrition / feeding management, Nutrition therapy, Prescribed activity/exercise education, Prescribed diet education, Prescribed dietary intake, Special diet education, Weight monitoring , Intervention, Order not done: Medical or Other reason not done * Follow Up:?4 Months (Reason: OV) * Images: * The named appointment provid er may or may not be the originator of this progress note, and it is not deemed complete until electronically signed by the appointment provider. Sign off status: Pending * Provider:?Elías Rangel MD Date:?08/31 Generated for Wilfredo ying/Axel/Lelanditting on:?09/24/2024 09:43 AM EST History and Physical Notes * HPI (History of Present Illness) Category Sub-Category Detail Notes COVID-19 Screening Questions Have you had any new onset fever, chills, cough, congestion, sore throat, shortness of breath, muscle aches?: No Examination Category Sub-Category Detail Notes General Examination GENERAL APPEARANCE: pleasant , well nourished, well developed, in no acute distress, calm and relaxed HEAD: atraumatic, normocep halic EYES: eomi, perrla, anicte julia, conjugate EARS: normal NOSE: septum intact NECK/THYROID: no jugular venous di stention, no carotid bruit, thyroid normal HEART: no clicks, gallops, murmurs, or rubs, regular rhythm, S1, S2 normal, no s3, or vascular bruits LUNGS: clear to auscultatio n ABDOMEN: bowel sounds normal, no ascites, no organomegaly, no mass NEUROLOGIC: alert and oriented, cranial nerves 2-12 grossly intact, deep tendon reflexes 2+ symmetrical, motor strength normal upper and lower extremities, sensory exam intact SKIN: no suspicious lesion s, anicteric PERIPHERAL PULSES: normal BREASTS: no masses palpable b ilaterally MUSCULOSKELETAL: extremities unremark able, no clubbing, cyanosis or edema LYMPH NODES: no enlarged lymph no clarissa,spleen normal RECTAL EXAM: not examined PSYCH: alert, oriented ORAL CAVITY: normal, unremarkable
--- OUTSIDE RECORDS SUMMARY | 2024-09-24 09:44 | XMS_ITS ---
Author Organization Elías Rangel III, MD Address [address] [place] [address] [place] [address] Care Team Providers Care Principal Technical Writer Name Role Phone Elías Rangel Primary Care Provider REASON FOR VISIT Refills Medications Medication SIG (Take, Route, Frequency, Duration) Notes Start Date End Date Status hydroCHLOROthiazide 25 MG 1 tablet in th e morning Orally Once a day for 90 days Active Social History Sex Assigned At : Social History Observation Description Sex Assigned At Male Encounters Encounter Location Date Provider Diagnosis Elías Rangel III, MD [address] [place] [address] [place] [address] 09/16/2024 Elías Rangel Obesity (BMI 30.0-34.9) E66.9 Assessments Encounter Date Diagnosis (ICD Code) Assessment Notes Treatment Notes Treatment Clinical Notes 09/16/2024 Obesity (BMI 30.0-34.9) (ICD-10 - E66.9) He has lost 5 pounds. We discussed his weight loss strategy at length. He will try to lose weight at a rate of one half of a pound per week through a diet restricted in fat calories and sodium combined with regular exercise. Plan Of Treatment Medication Medication Name Sig Start Date Stop Date Notes hydroCHLOROthiazide 25 MG 1 tablet in th e morning Orally Once a day for 90 days Next Appt Details Provider Name:Elías Rangel, 12/07/2024 02:00:00 PM, [address] [place] [address] [place], [address], Progress Notes * KORY JUSTICE DDOB: [birth year] (79 yo M)Acc No.[id number]:09/16/2024 Patient:?KORY JUSTICE :1945???Age:79 Y???Sex:Male Address: [address], [place], [address] * Refills? Refill hydroCHLOROthiazide Tablet, 25 MG, Orally, 90, 1 tablet in the morning, Once a day, 90 days, Refills=3 * true * Date:? Generated for Wilfredo ying/Axel/eTransmitting on:?09/24/2024 09:44 AM EST
--- OUTSIDE RECORDS SUMMARY | 2024-09-24 09:44 | XMS_ITS ---
Author Organization Elías Rangel III, MD Address [address] [place] [address] Care Team Providers Care Hunter Skin Diver Name Role Phone Elías Rangel Primary Care Provider [phone] Allergies Allergen (clinical drug ingredient) Drug/Non Drug Allergy documented on EMR Reaction Allergy Type Onset Date Status penicillin G Penicillin G Sodium Unknown Drug Allergy Active REASON FOR VISIT Obesity, Hypertension, Hyperlipidemia, Prediabetes, Benign prostatic hypertrophy, History of depression Medications Medication SIG (Take, Route, Frequency, Duration) Notes Start Date End Date Status Atorvastatin Calcium 10 MG 1 tablet Oral ly Saturday, Saturday, and Saturday Active Amitriptyline HCl 25 MG 1 tablet at bedt rey Orally Once a day Active hydroCHLOROthiazide 25 MG 1 tablet in morning Orally Once a day Active Lisinopril 40 MG 1 tablet Orally Once a day Active Anusol-HC 25 MG 1 suppository Rectal Three times a day Active Metoprolol Succinate ER 50 MG 1.5 tablet s Orally Once a day 11/08/2020 Active Aspir-Low 81 MG 1 tablet Orally Once a day Active Omeprazole 20 MG 1 tablet 30 minutes before morning meal Orally Once a day Active Vitamin D 50 MCG (1999) 1 capsule Ora lly Once a day Active Social History Tobacco Use: Social History Observation Description Date Details (start date - stop date) Never Smoker NA - NA Sex Assigned At : Social History Observation Description Sex Assigned At Male Tobacco Use/Smoking Question Answer Notes Patient is a nonsmoker Additional Findings: Tobacco Non-User Aggressive non-smoker Vital Signs Temperature 97.2 degrees Fahrenheit 07/20/20 24 Blood pressure systolic 138 mm Hg 07/20/20 24 Blood pressure diastolic 78 mm Hg 024 Heart Rate 60 /min 07/20/2024 Height 64 in 07/20/2024 Weight 201 lbs 07/20/2024 BMI 34.5 kg/m2 07/20/2024 Encounters Encounter Location Date Provider Diagnosis Elías Rangel III, MD [address] [place] [address] [place] [address] 07/20/2024 Elías Rangel Obesity (BMI 30.0-34 .9) E66.9 ; Essential hypertension I10 ; Mixed hyperlipidemia E78.2 ; History of depression Z86.59 ; BPH (benign prostatic hyperplasia) N40.0 and Prediabetes R73.03 Assessments Encounter Date Diagnosis (ICD Code) Assessment Notes Treat ment Notes Treatment Clinical Notes 07/20/2024 Obesity (BMI 30.0-34.9) (ICD-10 - E66.9) He has lost 5 pounds. We discussed his weight loss strategy at length. He will try to lose weight at a rate of one half of a pound per week through a diet restricted in fat calories and sodium combined with regular exercise. 07/20/2024 Essential hypertension (ICD-10 - I10) His blood pressure is in the normal range At 130/80. I recommended weight loss and sodium restriction. No change in his medications was made. 07/20/2024 Mixed hyperlipidemia (ICD-10 - E78.2) He is tolerating the atorvastatin well. No change in his regimen was needed today. 07/20/2024 History of depressio n (ICD-10 - Z86.59) His medication will be increased as needed. He is moderately depressed but stable and says the medication is benefiting him significantly. 07/20/2024 BPH (benign prostati c hyperplasia) (ICD-10 - N40.0) He arises from sleep once or twice a night to urinate. We discussed lifestyle modification as a way to reduce nocturnal urinating. 07/20/2024 Prediabetes (ICD-10 - R73.03) His fasting glucose with medication is 134 with a hemoglobin A1c of 6.6. We discussed his diagnosis today, whether he has prediabetes are diet controlled adult onset type II. These values will be repeated prior to his next visit and if indicated the diagnosis will be upgraded. Plan Of Treatment Medication Medication Name Sig Start Date Stop Date Notes Atorvastatin Calcium 10 MG 1 tablet Oral ly Saturday, Saturday, and Saturday Amitriptyline HCl 25 MG 1 tablet at bedt rey Orally Once a day hydroCHLOROthiazide 25 MG 1 tablet in morning Orally Once a day Lisinopril 40 MG 1 tablet Orally Once a day Anusol-HC 25 MG 1 suppository Rectal Three times a day Metoprolol Succinate ER 50 MG 1.5 tablet s Orally Once a day 11/08/2020 Aspir-Low 81 MG 1 tablet Orally Once a day Omeprazole 20 MG 1 tablet 30 minutes before morning meal Orally Once a day Vitamin D 50 MCG (1999 MT) 1 capsule Orally Once a day Next Appt Details Follow Up: 2 Months, End august, Reason: OV, Check fasting blood sugar and weight Provider Name:Elías Rangel, 12/07/2024 02:00:00 PM, [address] [place] [address], [address], [address], Progress Notes * KORY ELI DDOB: [birth year] (79 yo M)Acc No.[id number]:07/20/2024 Progress Notes Patient:?KAZKENNETHBRIDGER KORY Hodgson Provider:?Elías Rangel MD :1945???Age:79 Y???Sex:Male Hossein e:07/20/2024 Address:[address] [place], [place] [id number] Subjective: * Chief Complaints: * ???ObesityHypertensionHyperl ipidemiaPrediabetesBenign prostatic hypertrophyHistory of depression * HPI: ???COVID-19 Screening:?Questions?Have you experienced fever, chills, cough, sore throat, shortness of breath, difficulty breathing, muscle aches, loss of taste or smell??No ?Have you been exposed to the virus within the last 10 days??No ?Have you travelled internationally in the last 10 days??No ?Have you been exposed to COVID-19 in the past??No ???:? The patient, Kory, is a 79-year-old male who has been feeling generally well, albeit a bit tired. He has been seeing a doctor at the [facility], where he had some blood work done. The results showed normal kidney function, but his sodium was slightly low, indicating hyponatremia. However, a subsequent test showed his sodium levels had returned to normal. His cholesterol was good at 171, and his liver tests were fine. His blood counts were also normal. His blood sugar was slightly elevated at 131, indicating prediabetes. His A1C was 6.6, which is on the edge of being diabetic. He has been trying to lose weight and has lost 5 lbs since March. He also mentioned some swelling in his feet by the end of the day. Blood Sugar Level is 131. * ROS:?General/Constitutional:?pain?only normal aches and pains.?Chills?denies.?Fatigue?admits.?Fever?denies.?ENT:?Decreased hearing?mild.?Respiratory:?Cough?denies.?Cardiovascular:?Chest pain with exertion?denies.?Dyspnea on exertion?denies.?Shortness of breath?denies.?Gastrointestinal:?Constipation?occasional.?Decreased appetite?denies.?Diarrhea?denies.?Heartburn?denies.?Nausea?denies.?Rectal bleeding?denies.?Vomiting?denies.?Hematology:?bruising?denies.?petechiae?denies.?Swollen glands?none have been noted.?Genitourinary:?Frequent urination?once a night.?Musculoskeletal:?Muscle aches?denies.?Painful joints?denies.?Sciatica?denies.?Weakness?denies.?Skin:?Itching?denies.?Rash?denies.?Skin lesion(s)?denies.?Neurologic:?Difficulty speaking?denies.?Dizziness?denies.?Headache?denies.?Low back pain?denies.?Psychiatric:?Depressed mood?which is mild.? * Medical History:? * Surgical History:?No history * Hospitalization/Major Diagno stic Procedure:?diverticulitis [facility] 02/2020No history * Family History:?Father: dece ased 74 yrs, [...] Tobacco Non-User?Aggressive non-smoker ???He was born in [facility]. He worked in the [employer] in [facility]. 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 He has 2 sons Hugo Burnette. He is . He lives in [facility]. He is a . His blood type is A+. * Medications:?TakingMetoprolo l Succinate ER 50 MG Tablet Extended Release 24 Hour 1.5 tablets Orally Once a day Aspir-Low 81 MG Tablet Delayed Release 1 tablet Orally Once a day Omeprazole 20 MG Tablet Delayed Release 1 tablet 30 minutes before morning meal Orally Once a day Vitamin D 50 MCG (1999 [place]) Capsule 1 capsule Orally Once a day Anusol-HC 25 MG Suppository 1 suppository Rectal Three times a day hydroCHLOROthiazide 25 MG Tablet 1 tablet in the morning Orally Once a day Lisinopril 40 MG Tablet 1 tablet Orally Once a day Atorvastatin Calcium 10 MG Tablet 1 tablet Orally Saturday, Saturday, and Saturday Amitriptyline HCl 25 MG Tablet 1 tablet at bedtime Orally Once a day Medication List reviewed and reconciled with the patientTaking Metoprolol Succinate ER 50 MG Tablet Extended Release 24 Hour 1.5 tablets Orally Once a day Taking Aspir-Low 81 MG Tablet Delayed Release 1 tablet Orally Once a day Taking Omeprazole 20 MG Tablet Delayed Release 1 tablet 30 minutes before morning meal Orally Once a day Taking Vitamin D 50 MCG (1999) Capsule 1 capsule Orally Once a day Taking Anusol-HC 25 MG Suppository 1 suppository Rectal Three times a day Taking hydroCHLOROthiazide 25 MG Tablet 1 tablet in the morning Orally Once a day Taking Lisinopril 40 MG Tablet 1 tablet Orally Once a day Taking Atorvastatin Calcium 10 MG Tablet 1 tablet Orally Saturday, Saturday, and Saturday Taking Amitriptyline HCl 25 MG Tablet 1 tablet at bedtime Orally Once a day Medication List reviewed and reconciled with the patient * Allergies:?Penicillin G Javii farooq[Allergies Verified] Objective: * Vitals:?Ht: 64, Wt:201, BMI: 34.5, BP:138/78, HR:60, Temp:97.2, Wt-k.17. * ???Past Orders: Lab:[facility] [place]. [facility] Fast * Collection Date 07/14/2024 03/26/2024 [...] mg/dL) 9.3 (Ref Range: 8.4-10.2 mg/dL) * Lab:Lipid Panel * Collection Date 07/14/2024 [...] >40 mg/dL) 31?L (Ref Range: >40 mg/dL) ???Lab:Hemoglobin A1c (Order Date - 07/14/2024) (Collection Date & Time - 07/14/2024 09:00 AM)?ValueReference Range?Hemoglobin A1c %6.6H<6.0 - %?Estimated Average [id number]- mg/dL * Lab:Complete Blood Count Aut o Diff * [...] 0.0-0.012 X10*3/uL) 0.000 (Ref Range: 0.0-0.012 X10*3/uL) * Examination: ???General Examination: ?GENERAL APPEARANCE:?pleasant, well nourished, well developed, in no acute distress, calm and relaxed, obese, man.?HEAD:?atraumatic, normocephalic.?EYES:?eomi, perrla, anicteric, conjugate.?EARS:?normal.?NOSE:?septum intact.?ORAL CAVITY:?normal, unremarkable.?NECK/THYROID:?no jugular venous distention, no carotid bruit, thyroid normal.?LYMPH NODES:?no enlarged lymph nodes,spleen normal.?SKIN:?no suspicious lesions, anicteric.?HEART:?no clicks, gallops, murmurs, or rubs, regular rhythm, S1, S2 normal, no s3, or vascular bruits.?LUNGS:?clear to auscultation .?BREASTS:??no masses palpable bilaterally.?ABDOMEN:?bowel sounds normal, no ascites, no organomegaly, no mass, centripital obesity.?RECTAL EXAM:?not examined.?MUSCULOSKELETAL:?extremities unremarkable, no clubbing, cyanosis or edema, Both lower extremities warm and dry with good pulses.?PERIPHERAL PULSES:?normal.?NEUROLOGIC:?alert and oriented, cranial nerves 2-12 grossly intact, deep tendon reflexes 2+ symmetrical, motor strength normal upper and lower extremities, sensory exam intact.?PSYCH:?alert, oriented.? Assessment: * Assessment: 1.?Essential hypertension - I10 (Primary)???Notes :His blood pressure is in the normal range At 130/80. I recommended weight loss and sodium restriction. No change in his medications was made.???2.?Obesity (BMI 30.0-34.9) - E66.9???Notes :He has lost 5 pounds. We discussed his weight loss strategy at length. He will try to lose weight at a rate of one half of a pound per week through a diet restricted in fat calories and sodium combined with regular exercise.???3.?Mixed hyperlipidemia - E78.2???Notes :He is tolerating the atorvastatin well. No change in his regimen was needed today.???4.?History of depression - Z86.59???Notes :His medication will be increased as needed. He is moderately depressed but stable and says the medication is benefiting him significantly.???5.?BPH (benign prostatic hyperplasia) - N40.0???Notes :He arises from sleep once or twice a night to urinate. We discussed lifestyle modification as a way to reduce nocturnal urinating.???6.?Prediabetes - R73.03???Notes :His fasting glucose with medication is 134 with a hemoglobin A1c of 6.6.? We discussed his diagnosis today, whether he has prediabetes are diet controlled adult onset type II.? These values will be repeated prior to his next visit and if indicated the diagnosis will be upgraded.??? Plan: * Treatment: * Procedure Codes:? * Preventive Medicine:? ??Counseling:?Care goal follow-up plan:?Counseling [...] or Other reason not done * Follow Up:?2 Months, End august (Reason: OV, Check fasting blood sugar and weight) * Images: * Sign off status: Completed true * Provider:?Elías Rangel MD Date:?07/01 Generated for Printi ng/Axel/eTransmitting on:?09/24/2024 09:44 AM EST History and Physical Notes * HPI (History of Present Illness) Category Sub-Category Detail Notes COVID-19 Screening Questions Have you had any new onset fever, chills, cough, congestion, sore throat, shortness of breath, muscle aches?: No Have you been exposed to the virus withi n the last 10 days?: No Have you travelled internationally in e last 10 days?: No Have you been exposed to COVID-19 in the past?: No Examination Category Sub-Category Detail Notes General Examination GENERAL APPEARANCE: pleasant , well nourished, well developed, in no acute distress, calm and relaxed, obese, man HEAD: atraumatic, normocep halic EYES: eomi, perrla, anicte julia, conjugate EARS: normal NOSE: septum intact NECK/THYROID: no jugular venous di stention, no carotid bruit, thyroid normal HEART: no clicks, gallops, murmurs, or rubs, regular rhythm, S1, S2 normal, no s3, or vascular bruits LUNGS: clear to auscultatio n ABDOMEN: bowel sounds normal, no ascites, no organomegaly, no mass, centripital obesity NEUROLOGIC: alert and oriented, cranial nerves 2-12 grossly intact, deep tendon reflexes 2+ symmetrical, motor strength normal upper and lower extremities, sensory exam intact SKIN: no suspicious lesion s, anicteric PERIPHERAL PULSES: normal BREASTS: no masses palpable b ilaterally MUSCULOSKELETAL: extremities unremark able, no clubbing, cyanosis or edema, Both lower extremities warm and dry with good pulses LYMPH NODES: no enlarged lymph no clarissa,spleen normal RECTAL EXAM: not examined PSYCH: alert, oriented ORAL CAVITY: normal, unremarkable
--- OUTSIDE RECORDS SUMMARY | 2024-09-24 09:44 | XMS_ITS | Encounter Summary ---
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 This section includes the names of all active insurance providers for the patient. Insurance Provider Type of Coverage Plan Name Start of Policy Coverage End of Policy Coverage Group Number Member ID Insurance Provider's Telephone Number Policy Quijano's Name Patient's Relationship to Policy Quijano [place] SUPPLEMEN JUAN MEDEX [facility] E May 31, 2013 [id number] [phone] [employer] PATIENT MEDICARE (WNR) MEDICARE (M) PART B May 31, 2011 PART B [id number] [employer] SAM[place] PATIENT MEDICARE (WNR) MEDICARE (M) PART A Apr 30, 2011 PART A [id number] [employer] PATIENT Selected Encounter This section includes the information on record at [place] for the Encounter. Date/Time Encounter Type Encounter Description Reason Provider Source Jun 15, 2024 03:30 PM OFFICE O/P EST LOW 20 MIN PRIMARY CARE/MEDICINE ICD-10-CM I10 Essential (primary) hypertension LISSY FARRIS Encounter Template Text not used by [place] Assessments - Encounter Diagnoses This section includes the primary and secondary diagnoses documented for the Encounter. Date/Time Primary/Secondary Diagnosis Diagnosis Name Provider Source Jun 27, 2024 11:38 AM PRIMARY Essential (primary) hypertension FRED,WILL GAETANO J [facility] Jun 27, 2024 11:38 AM SECONDARY Gastro-esophageal reflux disease without esophagitis FRED,LISSY SALTER J [facility] Jun 27, 2024 11:38 AM SECONDARY Hypo-osmolality and hyponatremia FRED,WILL GAETANO J [facility] Jun 27, 2024 11:38 AM SECONDARY Pure hypercholesterolem ia, unspecified FRED,WILL GAETANO J [facility] Lab Results: +/- 30 days of the encounter This section includes the Chemistry and Hematology Lab Results on record with [place] for the patient. Radiology Reports and Pathology Reports are provided separately, in subsequent sections. Lab Results This section contains the Chemistry/Hematology Results that were resulted 30 days before or 30 daysafter the date of the Encounter. Date/Time Source Result Type Result - Unit Interpretation Reference Range Comment Jun 10, 2024 12:00 AM [facility] CBC Specimen Type: BLOOD No comment entered. Ordering Provider: LISSY FARRIS Report Released Date/Time: May 06, 2024 03:59 PM Reporting Lab: [address] [address] Performing Lab: [address] [address] WBC 7.31 10*3/uL 4.50-11.00 RBC 4.73 10*6/uL 4.23-5.66 HGB 14.1 g/dL 12.8-17 HCT 40.8 39.2-50.4 MCV 86.3 fL 82-99 MCHC 34.6 g/dL 30.8-35.1 PLT 293 10*3/uL 140-360 RDW-CV 13.1 12.0-16.0 MCH 29.8 pg 26.2-32.6 Jun 10, 2024 12:00 AM [facility] BASIC METABOLIC PANEL (non-fasting) Specimen Type: SERUM No comment entered. Ordering Provider: LISSY FARRIS Report Released Date/Time: May 06, 2024 03:59 PM Reporting Lab: [facility] [address] [facility] [address] Performing Lab: [address] [address] UREA NITROGEN 18 mg/dL 7-25 GLUCOSE 141 mg/dL H 65-100 SODIUM 132 mmol/L L 135-145 POTASSIUM 4.2 mmol/L 3.5-5.0 CHLORIDE 97 mmol/L L 100-110 CO2 24 meq/L 20-30 CREATININE, Serum 1.17 mg/dL 0.50-1.40 eGFR(CKD-EPI 2020) 64 mL/min >60 Jun 10, 2024 12:00 AM [facility] LIPID PANEL, NON FASTING Specimen Type: SERUM No comment entered. Ordering Provider: LISSY FARRIS Report Released Date/Time: May 06, 2024 03:59 PM Reporting Lab: [address] [address] Performing Lab: [address] [address] CHOLESTEROL 171 mg/dL TRIGLYCERIDE 144 mg/dL 0-150 LDL calculated 108 mg/dL 0-129 CHOL/HDL 5.0 HDL CHOLESTEROL 34 mg/dL L 40-60 Jun 10, 2024 12:00 AM [facility] LIVER FUNCTION Specimen Type: SERUM No comment entered. Ordering Provider: LISSY FARRIS Report Released Date/Time: May 06, 2024 03:59 PM Reporting Lab: [address] [address] Performing Lab: [address] [address] PROTEIN,TOTAL 7.1 g/dL 6.0-8.3 ALBUMIN 3.9 g/dL 3.5-5.0 ALKALINE PHOSPHATASE 53 U/L 40-150 AST 19 U/L 5-34 ALT 29 U/L BILIRUBIN, TOTAL 0.7 mg/dL 0.2-1.2 Vital Signs: All taken on the encounter date This section contains inpatient and outpatient Vital Signs collected on the date of the Encounter. Date/Time Temperature Pulse Blood Pressure Respiratory Rate SP02 Pain Height Weight Body Mass Index Source Jun 15, 2024 03:44 PM 138/84 [facility] [place] Jun 15, 2024 03:19 PM 98.1 63 166/81 20 94 0 64 211 36 [facility] [place] [facility] [facility] Social History: Smoking Status (Most current) and Tobacco Use (All prior to encounter date) This section includes the most current, and the historical, smoking and tobacco- related health factors from the [place] facility where the Encounter took place. Current Smoking Status This section includes the most current smoking, or tobacco-related health factor, from the [place] facility where the Encounter took place. Date/Time Current Smoking Status Comment [place] Jun 15, 2024 03:30 PM VA-TOBACCO NEVER USED [facility] [place] [facility] Tobacco Use History This section includes a history of the smoking, or tobacco-related health factors, that were collected on or before the date of the Encounter. The data comes from the [place] facility where the Encounter took place. Date/Time Smoking Status/Tobacco Use Comment F acility May 16, 2023 01:30 PM VA-TOBACCO NEVER USED [facility] [place] [facility] May 17, 2022 01:30 PM VA-TOBACCO NEVER USED [facility] [place] [facility] May 18, 2021 02:00 PM VA-TOBACCO NEVER USED [facility] [place] [facility] May 02, 2021 09:20 AM VA-TOBACCO NEVER USED [facility] [place] [facility] Encounter Notes: All associated encounter notes This section contains the clinical notes associated to the Encounter. Date/Time Encounter Note(s) Provider Source Jun 15, 2024 03:38 PM PRIMARY CARE NURSE PRACTITIONER OUTPATIENT NOTE: LOCAL TITLE: NURSE PRACTITIONER OUTPATIENT NOTE STANDARD TITLE: PRIMARY CARE NURSE PRACTITIONER OUTPATIENT NOTE DATE OF NOTE: JUN 15, 2024@15:38 ENTRY DATE: JUN 15, 2024@15:38:23 AUTHOR: GENARO FARRIS COSIGNER: URGENCY: STATUS: COMPLETED Chief complaint: Patient is a 79 year old [place]. HPI: Pleasant male [place] here to follow up. He comes annually, follows with Dr Rangel in [place]. Feeling well. Allergies: PENICILLIN The following VA and Non-VA meds were reconciled with patient. The patient was educated on the use of the medications including indication and side effects. Active and Recently Outpatient Medications (excluding Supplies): Active Non-VA Medications Status 1) Non-VA AMITRIPTYLINE HCL 25MG TAB 25MG BY MOUTH ONCE ACTIVE DAILY 2) Non-VA ASPIRIN 81MG EC TAB 81MG BY MOUTH ONCE DAILY ACTIVE 3) Non-VA ATORVASTATIN CALCIUM 20MG TAB 10MG BY MOUTH ACTIVE THREE TIMES A WEEK 4) Non-VA HYDROCHLOROTHIAZIDE 25MG TAB 25MG BY MOUTH ACTIVE ONCE DAILY 5) Non-VA LISINOPRIL 40MG TAB 40MG BY MOUTH ONCE DAILY ACTIVE 6) Non-VA METOPROLOL SUCCINATE 25MG SA TAB 75 MG BY ACTIVE MOUTH ONCE DAILY 7) Non-VA OMEPRAZOLE 20MG EC CAP 20MG BY MOUTH TWICE ACTIVE DAILY 8) Non-VA PROBIOTIC COMBINATION CAP/TAB 1 CAPSULE BY ACTIVE MOUTH ONCE DAILY 9) Non-VA VITAMIN D3 (CHOLECALCIFEROL) TAB BY MOUTH ACTIVE ONCE DAILY Review of Systems: Constitutional: (-)for Fevers, chills, weakness, nights sweats On examination: 98.1 F [36.7 C] (06/15/2024 15:19)166/81 (06/15/2024 15:19)63 (06/15/2024 15:19)20 (06/15/2024 15:19)0 (06/15/2024 15:19)BMI: 36.3211 lb [95.71 kg] (06/15/2024 15:19) [place] is alert and oriented X3 Cardiovasc: 2plus carotids without bruits, no JVD Heart Reguler rate and rhythm NL S1S2 no S3 or murmur Respiration: Normal respiratory effort, lungs clear ABD: Benign normal active bowel sounds no HSM no rebound or referred pain EXT: no clubbing, edema, or cyanosis All diagnostics from past month were reviewed with patient. Assessment/plan: Active problems - Computerized Problem List is the source for the followin HTN - Hypertension ([facility] [id number]) - repeat 138/84 2 GERD - Gastro-Esophageal Reflux Disease ([facility] [id number]) - stable 3. Hypercholesterolemia ([facility] [id number]) - controlled on statin 4. hyponatremia - i provided a copy of labs for him to review with PCP managing his blood pressure, on HCTZ. Health Care Maintenance: Declines flu and covid Review of medial record = 5mins Time spent with Patient including shared decision making = 15 mins Post visit documentation = 5mins Total time = 25 mins Follow up visit in 12 mos. Pneumococcal Conjugate Vaccine (PCV15/PCV20): Refuses PCV vaccine Immunization: PNEUMOCOCCAL CONJUGATE, UNSPECIFIED FORMULATION Refusal Reason: PATIENT DECISION Patient refuses all immunization(s) in the PneumoPCV group Date Documented: 06/15/24 15:42 Influenza Immunization: Deferral / Refusal The patient declines to receive the recommended dose of seasonal influenza vaccine. Immunization: INFLUENZA, UNSPECIFIED FORMULATION Refusal Reason: PATIENT DECISION Patient refuses all immunization(s) in the FLU group Date Documented: 06/15/24 15:43 COVID-19 Immunization: Refused Moderna Monovalent COVID-19 vaccine Immunization: COVID-19 (MODERNA), MRNA, LNP-S, PF, 50 MCG/0.5 ML (AGES 12+ YEARS) Refusal Reason: PATIENT DECISION Patient refuses all immunization(s) in the COVID-19 group Date Documented: 06/15/24 15:43 Tdap Immunization: The patient declines to receive the recommended dose of Tdap vaccine. Immunization: TDAP Refusal Reason: PATIENT DECISION Patient refuses all immunization(s) in the TDAP group Date Documented: 06/15/24 15:44 HTN Assess for Elevated BP>=140/90: Repeat blood pressure: 138/84 The patient's blood pressure is usually adequately controlled. No medication changes are indicated at this time. Herpes Zoster (Shingles) Vaccine: The patient declines to receive the recommended dose of zoster (shingles) vaccine. Immunization: ZOSTER RECOMBINANT Refusal Reason: PATIENT DECISION Patient refuses all immunization(s) in the ZOSTER group Date Documented: 06/15/24 15:44 Medication Reconciliation: Outpatient: Has the patient been taking medications as documented in the EMLR? YES: The patient has been taking medications as documented in the EMLR. Essential Medication List for Review used to complete this medication reconciliation. INCLUDED IN THIS LIST: Alphabetical list of active outpatient prescriptions dispensed from this [place] (local) and dispensed from another [facility] or [facility] facility (remote) as well as inpatient orders (local, pending and active), local clinic medications, locally documented non-VA medications, and local prescriptions that have or been discontinued in the past 90 days. - All changes in medications, including all non-VA/Herbal/OTC medications were entered into [facility]S. - If there were any medications the patient should no longer take, they were discontinued. - The patient/caregiver was instructed to update this list, discard old lists, and take this list to the next appointment, whether with a VA or non-VA provider. /snehal/ Genaro Farris DNP, INVENTORY CONTROL MANAGER-BC, CNL Primary Care Nurse Practitioner Signed: 06/15/2024 15:45 GENARO FARRIS [facility] [place] [facility] Jun 15, 2024 03:29 PM PRIMARY CARE NURSE PRACTITIONER OUTPATIENT NOTE: LOCAL TITLE: NURSE PRACTITIONER OUTPATIENT NOTE STANDARD TITLE: PRIMARY CARE NURSE PRACTITIONER OUTPATIENT NOTE DATE OF NOTE: JUN 15, 2024@15:29 ENTRY DATE: JUN 15, 2024@15:29:11 AUTHOR: GENARO FARRIS EXP COSIGNER: URGENCY: STATUS: COMPLETED LAB CHEMISTRY & HEMATOLOGY Collection DT Specimen Test Name Result Units Ref Range 06/10/2024 00:00 SERUM CREATININE, Serum 1.17 mg/dL 0.50 - 1.40 eGFR(CKD-EPI 2020 64 mL/min Ref: >=60 SODIUM 132 L mmol/L 135 - 145 POTASSIUM 4.2 mmol/L 3.5 - 5.0 CHLORIDE 97 L mmol/L 100 - 110 CO2 24 mEq/L 20 - 30 UREA NITROGEN 18 mg/dL 7 - 25 GLUCOSE 141 H mg/dL 65 - 100 PROTEIN,TOTAL 7.1 g/dL 6.0 - 8.3 ALBUMIN 3.9 g/dL 3.5 - 5.0 ALK ZBIGNIEW 53 U/L 40 - 150 AST 19 U/L 5 - 34 BILIRUBIN, TOTAL 0.7 mg/dL 0.2 - 1.2 CHOLESTEROL 171 mg/dL <7 - 199 TRIGLYCERIDE 144 mg/dL 0 - 150 LDL calculated 108 mg/dL 0 - 129 CHOL/HDL 5.0 ALT 29 U/L <6 - 55 HDL CHOLESTEROL 34 L mg/dL 40 - 60 06/10/2024 BLOOD WBC 7.31 K/cmm 4.50 - 11.00 RBC 4.73 M/cmm 4.23 - 5.66 HGB 14.1 g/dL 12.8 - 17 HCT 40.8 % 39.2 - 50.4 MCV 86.3 fl 82 - 99 MCH 29.8 pg 26.2 - 32.6 MCHC 34.6 g/dL 30.8 - 35.1 RDW-CV 13.1 % 12.0 - 16.0 PLT 293 K/cmm 140 - 360 /es/ Genaro Farris DNP, INVENTORY CONTROL MANAGER-, CNL Primary Care Nurse Practitioner Signed: 06/15/2024 15:46 GENARO FARRIS [facility] Jun 15, 2024 03:23 PM PREVENTIVE MEDICINE NURSING NOTE: LOCAL TITLE: CLINICAL REMINDERS/NURSING STANDARD TITLE: PREVENTIVE MEDICINE NURSING NOTE DATE OF NOTE: JUN 15, 2024@15:23 ENTRY DATE: JUN 15, 2024@15:23:09 AUTHOR: JOHANN KATHLEEN COSIGNER: URGENCY: STATUS: COMPLETED Advance Directive Screen AD: Patient does not have an Advance Directive completed and is requesting more information. A consult was sent to Social Work Services at this visit so that an appointment can be made with the patient to review the advance directive. The patient received education about Advance Directives and written notification of his/her rights. Suicide Screen: C-SSRS Screening [place]-Suicide Severity Rating Scale (C-SSRS Screener) 1. Over the past month, have you wished you were or wished you could go to sleep and not wake up? No 2. Over the past month, have you had any actual thoughts of killing yourself? No 3. Over the past month, have you been thinking about how you might do this? Response not required due to responses to other questions. 4. Over the past month, have you had these thoughts and had some intention of acting on them? Response not required due to responses to other questions. 5. Over the past month, have you started to work out or worked out the details of how to kill yourself? Response not required due to responses to other questions. 6. If yes, at any time in the past month did you intend to carry out this plan? Response not required due to responses to other questions. 7. In your lifetime, have you ever done anything, started to do anything, or prepared to do anything to end your life (for example, collected pills, obtained a gun, gave away valuables, went to the roof but didn't jump)? No 8. If YES, was this within the past 3 months? Response not required due to responses to other questions. Homelessness/Food Insecurity Screen: In the past 2 months, have you been living in stable housing that you own, rent, or stay in as part of a household? Yes - Living in stable housing. Are you worried or concerned that in the next 2 months you may NOT have stable housing that you own, rent, or stay in as part of a household? No - Not worried about housing near future The [place] reports the following: Within the past 12 months, you worried whether your food would run out before you got money to buy more. Never true Within the past 12 months, the food you bought just didn't last and you didn't have money to get more. Never true Depression Screening: Perform PHQ-2 A PHQ-2 screen was performed. The score was 0 which is a negative screen for depression. Over the past two weeks, how often have you been bothered by the following problems? 1. Little interest or pleasure in doing things Not at all 2. Feeling down, depressed, or hopeless Not at all Falls & Incontinence Screen: Falls Screen: During the past 12 months, did the patient report any falls? 4. No falls within the past year. Incontinence Screen: During the past 12 months, has the patient has any characteristics of incontinence (ability, voiding, leakage, etc.)? No incontinence. Tobacco Use Screening: The patient has never used tobacco. Alcohol Use Screen (AUDIT-C): Alcohol Screen: SCREEN FOR ALCOHOL (AUDIT-C) An alcohol screening test (AUDIT-C) was negative (score=1). 1. How often did you have a drink containing alcohol in the past year? Consider a drink to be a 12 ounce can or bottle of regular beer, 8 ounces of malt liquor, a 5 ounce glass of table wine, or a 1.5 ounce shot of liquor (like scotch, gin, or vodka). Monthly or less 2. How many drinks containing alcohol did you have on a typical day when you were drinking in the past year? One or two drinks 3. How often did you have six or more drinks on one occasion in the past year? 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
--- OUTSIDE RECORDS SUMMARY | 2024-09-24 09:44 | XMS_ITS | Continuity of Care Document ---
Author Name [facility] Organization [facility] Care Team Providers Care Professional Shopper Name Role Phone [facility] Unavailable Unavailable Problems Combined list of problems from Department of Defense and Veterans Affairs facilities. It does not include entries that were removed or entered in error. Problem Status Onset Date Problem Type Date of Resolution Comments Source Anxiety ([facility] [id number]) Active Condition [facility] Chronic Post-Traumatic Stress Disorder ([facility] [id number]) Active Condition [facility] Exposure to potentially hazardous substance Active Condition [facility] GERD - Gastro-Esophageal Reflux Disease ([facility] [id number]) Active Condition [facility] HTN - Hypertension ([facility] [id number]) Active Condition [facility] Hypercholesterolemia ([facility] [id number]) Active Condition [facility] Impaired fasting glycemia Active Condition [facility] Insomnia Active Condition [facility] Pudendal neuralgia Active Condition A 2020 Entered By: THAD IBARRA AM Comment: manages with amitrytiline [facility] Diagnosis: ICD-10-CM I10 Essential (primary) hypertension Active Diagnosis [facility] Diagnosis: ICD-10-CM F43.12 Post-traumatic stress disorder, chronic Active Diagnosis [facility] Medications Combined list of outpatient medications from Department of Defense and Veterans Affairs facilities.Medications provided include 1) outpatient medications from the last 15 months, and 2) patient-reported medications. Medication Details Route Status Patient Instructions Prescription Expires Prescription Number Last Dispense Date Ordering Provider Order Date Order Qty Source AMITRIPTYLI NE HCL 25MG TAB TAKE ONE TABLET BY MOUTH ONCE DAILY ORAL ACTIVE [facility] ASPIRIN 81MG TAB,EC TAKE ONE TABLET BY MOUTH ONCE DAILY ORAL ACTIVE CHIOMA EDGARNAH 2020 [facility] ATORVASTATI N CA 20MG TAB TAKE ONE-HALF TABLET BY MOUTH THREE TIMES A WEEK ORAL ACTIVE CHIOMA EDGARNAH 2020 [facility] HYDROCHLORO THIAZIDE 25MG TAB TAKE ONE TABLET BY MOUTH ONCE DAILY ORAL ACTIVE CHIOMA EDGARNAH 2020 [facility] LISINOPRIL 40MG TAB TAKE ONE TABLET BY MOUTH ONCE DAILY ORAL ACTIVE CHIOMA EDGARNAH 2020 [facility] METOPROLOL SUCCINATE 25MG TAB,SA TAKE THREE TABLETS BY MOUTH ONCE DAILY ORAL ACTIVE CHIOMA EDGARNAH 2020 [facility] OMEPRAZOLE 20MG CAP,EC TAKE 1 CAPSULE BY MOUTH TWICE DAILY ORAL ACTIVE CHIOMA EDGARNAH 2020 [facility] PROBIOTIC COMBINATION CAP/TAB TAKE 1 CAPSULE BY MOUTH ONCE DAILY ORAL ACTIVE EDGARCHIOMANAH 2020 [facility] VITAMIN D3 (CHOLECALCI FEROL) TAB TAKE BY MOUTH ONCE DAILY ORAL ACTIVE EDGARCHIOMANAH 2020 [facility] Allergies, Adverse Reactions, Alerts Combined list of allergies from Department of Defense and Veterans Affairs facilities. It does not include entries that were removed or entered in error. Substance Category Reaction Severity Reaction type Status Date Reported Comments Source PENICILLIN Propensity to adverse reactions to drug (finding) Dyspnea active [facility] Immunizations Combined list of available immunizations from the Department of Defense and Veterans Affairs facilities. 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 Order Name Results Value Reference Range Date Interpretation Specimen Comments Source CBC LEUKOCYTES [#/VOLUME] IN BLOOD BY AUTOMATED COUNT 7.31 10*3/u L 4.50 - 11.00 06/10 Specimen Type: BLOOD No comment entered. Ordering Provider: MARGO IBARRA Report Released Date/Time: May 06, 2024 03:59 PM Reporting Lab: [facility] [place] [facility] [address] [facility] [address] Performing Lab: [facility] [place] [facility] [address] [facility] [address] [facility] CBC ERYTHROCYTE S [#/VOLUME] IN BLOOD BY AUTOMATED COUNT 4.73 10*6/u L 4.23 - 5.66 06/10 Specimen Type: BLOOD No comment entered. Ordering Provider: MARGO IBARRA Report Released Date/Time: May 06, 2024 03:59 PM Reporting Lab: [facility] [place] [address] [address] Performing Lab: [facility] [place] [facility] [address] [facility] [address] [facility] CBC HEMOGLOBIN [MASS/VOLUM E] IN BLOOD 14.1 g/dL 12.8 - 17 06/10 Specimen Type: BLOOD No comment entered. Ordering Provider: MARGO IBARRA Report Released Date/Time: May 06, 2024 03:59 PM Reporting Lab: [facility] [place] [address] [address] Performing Lab: [facility] [place] [address] [address] [facility] CBC HEMATOCRIT [VOLUME FRACTION] OF BLOOD BY AUTOMATED COUNT 40.8 39.2 - 50.4 06/10 Specimen Type: BLOOD No comment entered. Ordering Provider: MARGO IBARRA Report Released Date/Time: May 06, 2024 03:59 PM Reporting Lab: [facility] [address] [facility] [address] Performing Lab: [facility] [address] [facility] [address] [facility] CBC MCV [ENTITIC VOLUME] BY AUTOMATED COUNT 86.3 fL 82 - 99 06/10 Specimen Type: BLOOD No comment entered. Ordering Provider: MARGO IBARRA Report Released Date/Time: May 06, 2024 03:59 PM Reporting Lab: [facility] [address] [facility] [address] Performing Lab: [facility] [address] [facility] [address] [facility] CBC MCHC [MASS/VOLUM E] BY AUTOMATED COUNT 34.6 g/dL 30.8 - 35.1 06/10 Specimen Type: BLOOD No comment entered. Ordering Provider: MARGO IBARRA Report Released Date/Time: May 06, 2024 03:59 PM Reporting Lab: [facility] [place] [facility] [address] [facility] [address] Performing Lab: [facility] [place] [facility] [address] [facility] [address] [facility] CBC PLATELETS [#/VOLUME] IN BLOOD BY AUTOMATED COUNT 293 10*3/u L 140 - 360 06/10 Specimen Type: BLOOD No comment entered. Ordering Provider: MARGO IBARRA Report Released Date/Time: May 06, 2024 03:59 PM Reporting Lab: [facility] [address] [facility] [address] Performing Lab: [facility] [address] [facility] [address] [facility] CBC ERYTHROCYTE DISTRIBUTIO N WIDTH [RATIO] BY AUTOMATED COUNT 13.1 12.0 - 16.0 06/10 Specimen Type: BLOOD No comment entered. Ordering Provider: MARGO IBARRA Report Released Date/Time: May 06, 2024 03:59 PM Reporting Lab: [facility] [place] [facility] [address] [facility] [address] Performing Lab: [facility] [place] [facility] [address] [facility] [address] [facility] CBC MCH [ENTITIC MASS] BY AUTOMATED COUNT 29.8 pg 26.2 - 32.6 06/10 Specimen Type: BLOOD No comment entered. Ordering Provider: MARGO IBARRA Report Released Date/Time: May 06, 2024 03:59 PM Reporting Lab: [facility] [place] [facility] [address] [facility] [address] Performing Lab: [facility] [place] [address] [address] [facility] BASIC METABOLIC PANEL (non-fast ing) UREA NITROGEN [MASS/VOLUM E] IN SERUM OR PLASMA 18 mg/dL 7 - 25 06/10 Specimen Type: SERUM No comment entered. Ordering Provider: MARGO IBARRA Report Released Date/Time: May 06, 2024 03:59 PM Reporting Lab: [facility] [place] [facility] [address] [facility] [address] Performing Lab: [facility] [place] [address] [address] [facility] BASIC METABOLIC PANEL (non-fast ing) GLUCOSE [MASS/VOLUM E] IN SERUM OR PLASMA 141 mg/dL 65 - 100 06/10 H Specimen Type: SERUM No comment entered. Ordering Provider: MARGO IBARRA Report Released Date/Time: May 06, 2024 03:59 PM Reporting Lab: [facility] [place] [facility] [address] [facility] [address] Performing Lab: [facility] [place] [address] [address] [facility] BASIC METABOLIC PANEL (non-fast ing) SODIUM [MOLES/VOLU ME] IN SERUM OR PLASMA 132 mmol/L 135 - 145 06/10 L Specimen Type: SERUM No comment entered. Ordering Provider: MARGO IBARRA Report Released Date/Time: May 06, 2024 03:59 PM Reporting Lab: [facility]USUSE[address] [address] Performing Lab: [facility]ITALN [facility]USUSE[address] [address] [facility]USUSE [facility] BASIC METABOLIC PANEL (non-fast ing) POTASSIUM [MOLES/VOLU ME] IN SERUM OR PLASMA 4.2 mmol/L 3.5 - 5.0 06/10 Specimen Type: SERUM No comment entered. Ordering Provider: MARGO IBARRA Report Released Date/Time: May 06, 2024 03:59 PM Reporting Lab: [facility]USUSE[address] [address] Performing Lab: [facility]N [facility]USUSE[address] [address] [facility] BASIC METABOLIC PANEL (non-fast ing) CHLORIDE [MOLES/VOLU ME] IN SERUM OR PLASMA 97 mmol/L 100 - 110 06/10 L Specimen Type: SERUM No comment entered. Ordering Provider: MARGO IBARRA Report Released Date/Time: May 06, 2024 03:59 PM Reporting Lab: [facility] DOTHANTRN [facility]USUSE[address] [address] Performing Lab: [facility] DOTHANTRN [facility]USUSE[address] [address] [facility] BASIC METABOLIC PANEL (non-fast ing) CARBON DIOXIDE, TOTAL [MOLES/VOLU ME] IN SERUM OR PLASMA 24 meq/L 20 - 30 06/10 Specimen Type: SERUM No comment entered. Ordering Provider: MARGO IBARRA Report Released Date/Time: May 06, 2024 03:59 PM Reporting Lab: [facility] DOTHANTRN [facility] CAMPUSUSE45 [place] [address] Performing Lab: [facility] DOTHANTRN [facility] CAMPUSUSETS [facility] [address] [facility] [address] [facility] DOTHANTRN [facility]AMPUSUSE [facility] BASIC METABOLIC PANEL (non-fast ing) CREATININE [MASS/VOLUM E] IN SERUM OR PLASMA 1.17 mg/dL 0.50 - 1.40 06/10 Specimen Type: SERUM No comment entered. Ordering Provider: MARGO IBARRA Report Released Date/Time: May 06, 2024 03:59 PM Reporting Lab: [facility] TRN [facility]USUSEGO[facility] [address] [facility] [address] Performing Lab: [facility] DOTHANTRN [facility]AMPUSUSEGOOD [facility] [address] [facility] [address] [facility]ERN [facility] CAMPUSUSE [facility] BASIC METABOLIC PANEL (non-fast ing) GLOMERULAR FILTRATION RATE/1.73 SQ M.PREDICTED [VOLUME RATE/AREA] IN SERUM, PLASMA OR BLOOD BY CREATININE- BASED FORMULA (CKD-EPI 2020) 64 mL/min 60 06/10 Specimen Type: SERUM No comment entered. Ordering Provider: MARGO IBARRA Report Released Date/Time: May 06, 2024 03:59 PM Reporting Lab: [facility]USUSEGOOD [facility] [address] [facility] [address] Performing Lab: [facility]N [facility]AMPUSUSE[address] [address] [facility] LIPID PANEL, NON FASTING CHOLESTEROL [MASS/VOLUM E] IN SERUM OR PLASMA 171 mg/dL 06/10 Specimen Type: SERUM No comment entered. Ordering Provider: MARGO IBARRA Report Released Date/Time: May 06, 2024 03:59 PM Reporting Lab: [facility]USUSEGO[facility] [address] [facility] [address] Performing Lab: [facility]N [facility]AMPUSUSE[address] [address] [facility] LIPID PANEL, NON FASTING TRIGLYCERID E [MASS/VOLUM E] IN SERUM OR PLASMA 144 mg/dL 0 - 150 06/10 Specimen Type: SERUM No comment entered. Ordering Provider: MARGO IBARRA Report Released Date/Time: May 06, 2024 03:59 PM Reporting Lab: [facility] [place] [facility] [address] [facility] [address] Performing Lab: [facility] [place] [facility] [address] [facility] [address] [facility] LIPID PANEL, NON FASTING CHOLESTEROL IN LDL [MASS/VOLUM E] IN SERUM OR PLASMA BY CALCULATION 108 mg/dL 0 - 129 06/10 Specimen Type: SERUM No comment entered. Ordering Provider: MARGO IBARRA Report Released Date/Time: May 06, 2024 03:59 PM Reporting Lab: [facility] [place] [facility] [address] [facility] [address] Performing Lab: [facility] [place] [address] [address] [facility] [place] [facility] LIPID PANEL, NON FASTING CHOLESTEROL .TOTAL/CHOL ESTEROL IN HDL [MASS RATIO] IN SERUM OR PLASMA 5.0 06/10 Specimen Type: SERUM No comment entered. Ordering Provider: MARGO IBARRA Report Released Date/Time: May 06, 2024 03:59 PM Reporting Lab: [facility] [place] [facility] [address] [facility] [address] Performing Lab: [facility] [place] [facility] [address] [facility] [address] [facility] [place] [facility] LIPID PANEL, NON FASTING CHOLESTEROL IN HDL [MASS/VOLUM E] IN SERUM OR PLASMA 34 mg/dL 40 - 60 06/10 L Specimen Type: SERUM No comment entered. Ordering Provider: MARGO IBARRA Report Released Date/Time: May 06, 2024 03:59 PM Reporting Lab: [facility] [place] [facility] [address] [facility] [address] Performing Lab: [facility] [place] [facility] [address] [facility] [address] [facility] [facility] LIVER FUNCTION PROTEIN [MASS/VOLUM E] IN SERUM OR PLASMA 7.1 g/dL 6.0 - 8.3 06/10 Specimen Type: SERUM No comment entered. Ordering Provider: MARGO IBARRA Report Released Date/Time: May 06, 2024 03:59 PM Reporting Lab: [facility] [place] [address] [address] Performing Lab: [facility] [place] [facility] [address] [facility] [address] [facility] LIVER FUNCTION ALBUMIN [MASS/VOLUM E] IN SERUM OR PLASMA 3.9 g/dL 3.5 - 5.0 06/10 Specimen Type: SERUM No comment entered. Ordering Provider: MARGO IBARRA Report Released Date/Time: May 06, 2024 03:59 PM Reporting Lab: [facility] [place] [address] [address] Performing Lab: [facility] [place] [address] [address] [facility]USUSE [facility] LIVER FUNCTION ALKALINE PHOSPHATASE [ENZYMATIC ACTIVITY/VO LUME] IN SERUM OR PLASMA 53 U/L 40 - 150 06/10 Specimen Type: SERUM No comment entered. Ordering Provider: MARGO IBARRA Report Released Date/Time: May 06, 2024 03:59 PM Reporting Lab: [facility] [place] [address] [address] Performing Lab: [facility] [place] [facility] [address] [facility] [address] [facility]USUSE [facility] LIVER FUNCTION ASPARTATE AMINOTRANSF ERASE [ENZYMATIC ACTIVITY/VO LUME] IN SERUM OR PLASMA 19 U/L 5 - 34 06/10 Specimen Type: SERUM No comment entered. Ordering Provider: MARGO IBARRA Report Released Date/Time: May 06, 2024 03:59 PM Reporting Lab: [facility] [place] [address] [address] Performing Lab: [facility] [place] [facility] [address] [facility] [address] [facility] LIVER FUNCTION ALANINE AMINOTRANSF ERASE [ENZYMATIC ACTIVITY/VO LUME] IN SERUM OR PLASMA 29 U/L 06/10 Specimen Type: SERUM No comment entered. Ordering Provider: MARGO IBARRA Report Released Date/Time: May 06, 2024 03:59 PM Reporting Lab: [facility] [address] [facility] [address] Performing Lab: [facility] [place] [facility] [address] [facility] [address] [facility] [place] [facility] LIVER FUNCTION BILIRUBIN.T OTAL [MASS/VOLUM E] IN SERUM OR PLASMA 0.7 mg/dL 0.2 - 1.2 06/10 Specimen Type: SERUM No comment entered. Ordering Provider: MARGO IBARRA Report Released Date/Time: May 06, 2024 03:59 PM Reporting Lab: [facility] [place] [facility] [address] [facility] [address] Performing Lab: [facility] [place] [facility] [address] [facility] [address] [facility] [place] [facility] Vital Signs Combined list of inpatient and outpatient Vital Signs from Department of Defense and Veterans Affairs, ranging from 12 months to all on record, depending upon the facility. Vital Sign Value Date Comments Source SYSTOLIC BLOOD PRESSURE 166 06/15/20 24 15:19:42 [facility] [place] [facility] DIASTOLIC BLOOD PRESSURE 81 024 15:19:42 [facility] [place] [facility] PULSE OXIMETRY 94 06/15/2024 15:19:42 [facility] WEIGHT 211 06/15/2024 15:19:42 [facility] [place] [facility] BMI 36kg/m2 06/15/2024 15:19:42 [facility] PAIN 0 06/15/2024 15:19:42 [facility] [place] [facility] HEIGHT 64 06/15/2024 15:19:42 [facility] [place] [facility] TEMPERATURE 98.1 06/15/2024 15:19:42 [facility] [place] [facility] PULSE 63 06/15/2024 15:19:42 [facility] [place] [facility] RESPIRATION 20 06/15/2024 15:19:42 [facility] [place] [facility] Encounters Combined list of: 1) Encounters from Department of Veterans Affairs facilities going back up to thelast 18 months. 2) Encounters from the Department of Defense facilities going back up to 280 months. Location Location Details Encounter Type Encounter Number Reason For Visit Attending Provider ADM Date DC Date Status Disposition Source [facility] Outpatient Encounter [id number] 05/07 [facility] [place] [facility] [place] [facility] OFFICE O/P EST LOW 20-29 MIN [id number] Diagnos is: ICD-10- CM F43.12 Post-tr aumatic stress disorde r, chronic
Lucas IBARRA 05/16 [facility] [place] [facility] OFFICE O/P EST LOW 20 MIN [id number] Diagnos is: ICD-10- CM I10 Essenti al (primar y) hyperte nsion<b r/> Lucas IBARRA 06/15 [facility] [place] [facility] Social History Combined list of available smoking, tobacco, and other social history from Department of Defense and Veterans Affairs facilities. Social History Type Response Date Comment Sourc e Tobacco smoking status NHIS VA-TOBACCO NEVER USED 06[facility]2024 [facility] History of tobacco use VA-TOBACCO NEVER USED 05/16/2023 [facility] History of tobacco use VA-TOBACCO NEVER USED 05/17/2022 [facility] [place] History of tobacco use VA-TOBACCO NEVER USED 05/18/2021 [facility] History of tobacco use VA-TOBACCO NEVER USED 05/02/2021 [facility]
--- OUTSIDE RECORDS SUMMARY | 2024-09-24 09:44 | XMS_ITS | Patient Health Record ---
Author Organization Elías Rangel III, MD Address [address] [place] [address] Care Team Providers Care Child Watch Attendant Name Role Phone Elías Rangel Primary Care Provider Allergies Allergen (clinical drug ingredient) Drug/Non Drug Allergy documented on EMR Reaction Allergy Type Onset Date Status penicillin G Penicillin G Sodium Unknown Drug Allergy Active Results Component Value Reference Range Notes Complete Blood Count Auto Di ff Reviewed date:03/30/2024 04:39:03 PM Interpretation: Performing Lab:[facility], [address] [place] [phone] Notes/Report: White Blood Count 7.8 4.8-10.8 X10*3/uL Red Blood Count 4.59 4.60-5.80 X10*6/uL Hemoglobin 13.7 14.0-18.0 g/dl Hematocrit 39.7 42.0-52.0 % Mean Corpuscular Volume 86.5 80.0-98.0 fL Mean Corpuscular Hemoglobin 29.8 27.0-33.0 pg Mean Corpuscular HGB Conc 34.5 31.0-36.0 g/dl Red Cell Distribution Width 13.1 11.0-16.0 % Platelet Count 264 160-400 X10*3/uL Mean Platelet Volume 10.7 9.4-12.4 fL Neutrophils Percent Auto 57.0 45-73 % Imm Gran Pct Auto 0.4 0.0-0.4 % Lymphocytes Percent Auto 31.7 20-40 % Monocytes Percent Auto 8.5 2-11 % Eosinophils Percent Auto 1.9 0-4 % Basophils Percent Auto 0.5 0-2 % NRBC Pct Auto 0.0 0.0-0.2 /100WBC Neutrophils Absolute Auto 4.4 2.0-8.3 x10*3/u L Imm Gran Abs Auto 0.03 0.00-0.03 X10*3/uL Lymphocytes Absolute Auto 2.5 1.2-4.9 X10*3/u L Monocytes Absolute Auto 0.7 0.1-1.2 X10*3/uL Eosinophils Absolute Auto 0.2 0.0-0.4 X10*3/u L Basophils Absolute Auto 0.0 0.0-0.2 X10*3/uL NRBC Abs Auto 0.000 0.0-0.012 X10*3/uL Comprehensive [place]. Panel Fa st Reviewed date:03/30/2024 04:39:03 PM Interpretation: Performing Lab:[facility], [address] [place] [phone] Notes/Report: Sodium 131 135-145 mmol/L Potassium 3.7 3.3-5.1 mmol/L Chloride 99 96-108 mmol/L Carbon Dioxide 24 22-29 mmol/L Anion Gap 12 12-20 Blood Urea Nitrogen 15 9-16 mg/dL Creatinine 0.90 0.5-1.4 mg/dL Estimated Glomerular Filt Rate > 60 NOTE: For -English individuals, multiply the result by 1.210. Chronic Kidney Disease: Estimated GFR < 60 mL/min/1.73m2 Severe Kidney Disease: Estimated GFR < 15 mL/min/1.73m2 Glucose Fasting 133 60-99 mg/dL A fasting glucose of 126 mg/dl or greater on more than one occasion is considered diagnostic of diabetes. Calcium 9.1 8.4-10.2 mg/dL Bilirubin Total 0.9 0.0-1.0 mg/dL Aspartate Amino Transferase 21 5-37 U/L Alanine Aminotransferase 29 0-40 U/L Total Protein 6.8 6.5-8.0 g/dL Albumin Level 4.0 3.5-5.0 g/dL Alkaline Phosphatase 52 39-117 U/L Lipid Panel Reviewed date:03/30/2024 04:39:03 PM Interpretation: Performing Lab:[facility], [address] [place] [phone] Notes/Report: Triglycerides 158 <150 mg/dL Desirable Triglyceride: less than 150 mg/dL Borderline High Triglyceride 150-199 mg/dL High Triglyceride: 200-499 mg/dL Very High Triglyceride: greater than or equal to 5OO mg/dL Cholesterol 157 <200 mg/dL Desirable Cholesterol: less than 200 mg/dL Borderline High Cholesterol: 200-239 mg/dL High Cholesterol: greater than 239 mg/dL LDL Cholesterol Calculated 94 <100 mg/dL Desirable LDL: less than 100 mg/dL Near Optimal/Above Optimal LDL: 110-129 mg/dL Borderline High LDL: 130-159 mg/dL High LDL: 160-189 mg/dL Very High LDL: greater than or equal to 190 mg/dL HDL Cholesterol 32 >40 mg/dL Desirable HDL: greater than 40 mg/dL Note: This HDL assay may give artificially low results in patients with liver disease. Complete Blood Count Auto Di ff Reviewed date:07/14/2024 11:38:15 AM Interpretation: Performing Lab:[facility], [address] [place] [phone] Notes/Report: White Blood Count 8.6 4.8-10.8 X10*3/uL Red Blood Count 4.50 4.60-5.80 X10*6/uL Hemoglobin 13.6 14.0-18.0 g/dl Hematocrit 40.1 42.0-52.0 % Mean Corpuscular Volume 89.1 80.0-98.0 fL Mean Corpuscular Hemoglobin 30.2 27.0-33.0 pg Mean Corpuscular HGB Conc 33.9 31.0-36.0 g/dl Red Cell Distribution Width 13.6 11.0-16.0 % Platelet Count 266 160-400 X10*3/uL Mean Platelet Volume 10.6 9.4-12.4 fL Neutrophils Percent Auto 63.6 45-73 % Imm Gran Pct Auto 0.6 0.0-0.4 % Lymphocytes Percent Auto 26.1 20-40 % Monocytes Percent Auto 7.1 2-11 % Eosinophils Percent Auto 2.0 0-4 % Basophils Percent Auto 0.6 0-2 % NRBC Pct Auto 0.0 0.0-0.2 /100WBC Neutrophils Absolute Auto 5.5 2.0-8.3 x10*3/u L Imm Gran Abs Auto 0.05 0.00-0.03 X10*3/uL Lymphocytes Absolute Auto 2.2 1.2-4.9 X10*3/u L Monocytes Absolute Auto 0.6 0.1-1.2 X10*3/uL Eosinophils Absolute Auto 0.2 0.0-0.4 X10*3/u L Basophils Absolute Auto 0.1 0.0-0.2 X10*3/uL NRBC Abs Auto 0.000 0.0-0.012 X10*3/uL Comprehensive [place]. Panel Fa Reviewed date:07/14/2024 11:38:15 AM Interpretation: Performing Lab:[facility], [address] [place] [phone] Notes/Report: Sodium 136 135-145 mmol/L Potassium 4.0 3.3-5.1 mmol/L Chloride 102 96-108 mmol/L Carbon Dioxide 28 22-29 mmol/L Anion Gap 10 12-20 Blood Urea Nitrogen 19 9-16 mg/dL Creatinine 1.12 0.5-1.4 mg/dL Estimated Glomerular Filt Rate > 60 NOTE: For -English individuals, multiply the result by 1.210. Chronic Kidney Disease: Estimated GFR < 60 mL/min/1.73m2 Severe Kidney Disease: Estimated GFR < 15 mL/min/1.73m2 Glucose Fasting 134 60-99 mg/dL A fasting glucose of 126 mg/dl or greater on more than one occasion is considered diagnostic of diabetes. Calcium 9.4 8.4-10.2 mg/dL Bilirubin Total 0.7 0.0-1.0 mg/dL Aspartate Amino Transferase 17 5-37 U/L Alanine Aminotransferase 27 0-40 U/L Total Protein 6.8 6.5-8.0 g/dL Albumin Level 4.0 3.5-5.0 g/dL Alkaline Phosphatase 51 39-117 U/L Lipid Panel Reviewed date:07/14/2024 11:38:15 AM Interpretation: Performing Lab:[facility], [address] [place] [phone] Notes/Report: Triglycerides 142 <150 mg/dL Desirable Triglyceride: less than 150 mg/dL Borderline High Triglyceride 150-199 mg/dL High Triglyceride: 200-499 mg/dL Very High Triglyceride: greater than or equal to 5OO mg/dL Cholesterol 158 <200 mg/dL Desirable Cholesterol: less than 200 mg/dL Borderline High Cholesterol: 200-239 mg/dL High Cholesterol: greater than 239 mg/dL LDL Cholesterol Calculated 99 <100 mg/dL Desirable LDL: less than 100 mg/dL Near Optimal/Above Optimal LDL: 110-129 mg/dL Borderline High LDL: 130-159 mg/dL High LDL: 160-189 mg/dL Very High LDL: greater than or equal to 190 mg/dL HDL Cholesterol 31 >40 mg/dL Desirable HDL: greater than 40 mg/dL Note: This HDL assay may give artificially low results in patients with liver disease. Hemoglobin A1c Reviewed date:07/14/2024 11:38:15 AM Interpretation: Performing Lab:[facility], [address] [place] [phone] Notes/Report: Hemoglobin A1c % 6.6 <6.0 % Hemoglobin A1C Reference Range Adults: 4.8 - 6.0 % Non diabetic: < 6.0 % Goal: < 7.0 % Additional Action Suggested: > 8.0 % Note: Hemoglobin A1c results are invalid for patients with abnormal amounts of HbF. Blood transfusions may impact the HbA1c concentration in the patient sample. Estimated Average Glucose 143 eAG = Estimated average glucose which is %A1C expressed as average glucose, using the formula of the P2J-[id number] Average Glucose study (ADAG), Diabetes Care, Vol.31,#8, Apr. 2007 Reason For Referral No Information Medications Medication SIG (Take, Route, Frequency, Duration) Notes Start Date End Date Status Lisinopril 40 MG 1 tablet Orally Once a day Active Atorvastatin Calcium 10 MG 1 tablet Oral ly Saturday, Saturday, and Saturday Active hydroCHLOROthiazide 25 MG 1 tablet in morning Orally Once a day Active Amitriptyline HCl 25 MG 1 tablet at bedt rey Orally Once a day Active Omeprazole 20 MG 1 tablet 30 minutes before morning meal Orally Once a day Active Vitamin D 50 MCG (1999) 1 capsule Ora lly Once a day Active Metoprolol Succinate ER 50 MG 1.5 tablet s Orally Once a day 11/08/2020 Active Aspir-Low 81 MG 1 tablet Orally Once a day Active Anusol-HC 25 MG 1 suppository Rectal Three times a day Active Immunizations Vaccine Route Administration Date Status Comme nts Influenza no Preserv 3 and > Unknown 08/01/2009 Adminis tered PPV 23 Unknown 06/24/2014 Administered PCV13 Unknown 08/05/2015 Administered Tetanus and Diphtheria Toxoi ds Adsorbed Unknown 01/01/2017 Administered Tdap Unknown 06/10/2006 Administered Social History Tobacco Use: Social History Observation Description Date Details (start date - stop date) Never Smoker NA - NA Sex Assigned At : Social History Observation Description Sex Assigned At Male Tobacco Use/Smoking Question Answer Notes Patient is a nonsmoker Additional Findings: Tobacco Non-User Aggressive non-smoker Alcohol Screen Question Answer Notes Did you have a drink containing alcohol in the p ast year? No Points 0 Interpretation Negative Problems Problem Type SNOMED Code ICD Code Onset Dates Problem Status W/U Status Risk Notes Problem 155283725807978 Obesity (BMI 30.0-34.9) (E66.9) Active confirmed He has lost 5 pounds. We discussed his weight loss strategy at length. He will try to lose weight at a rate of one half of a pound per week through a diet restricted in fat calories and sodium combined with regular exercise. Problem 896592690 Mixed hyperlipidemia (E78.2) Active confirmed He is tolerating the atorvastatin well. No change in his regimen was needed today. Problem Benign prostatic hyperplasia (103821732) BPH (benign prostatic hyperplasia) (N40.0) Active confirmed He arises from sleep once or twice a night to urinate. We discussed lifestyle modification as a way to reduce nocturnal urinating. Problem 87245213 Essential hypertension (I10) Active confirmed His blood pressure is in the normal range At 130/80. I recommended weight loss and sodium restriction. No change in his medications was made. Problem 75498697 Vitamin D deficiency (E55.9) Active confirmed His vitamin D level is 154. The calcium was normal at 9.1. I have reduced his vitamin D level to 1000 units daily. Problem 215958103 Prediabetes (R73.03) Active confirmed His fasting glucose with medication is 134 with a hemoglobin A1c of 6.6. We discussed his diagnosis today, whether he has prediabetes are diet controlled adult onset type II. These values will be repeated prior to his next visit and if indicated the diagnosis will be upgraded. Problem 262091630 History of depression (Z86.59) Active confirmed His medication will be increased as needed. He is moderately depressed but stable and says the medication is benefiting him significantly . 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 Vital Signs Heart Rate 61 /min 09/24/2024 Temperature 97.9 degrees Fahrenheit 09/24/2024 Blood pressure diastolic 89 mm Hg 09/24/2024 Height 64 in 09/24/2024 Blood pressure systolic 175 mm Hg 09/24/2024 Weight 201 lbs 09/24/2024 BMI 34.5 kg/m2 09/24/2024 Encounters Encounter Location Date Provider Diagnosis Elías Rangel III, MD [address] [place] [address] [place] [phone] 09/24/2024 Elías Rangel Obesity (BMI 30.0-34 .9) E66.9 ; Mixed hyperlipidemia E78.2 ; BPH (benign prostatic hyperplasia) N40.0 and Prediabetes R73.03 Elías Rangel III, MD [address] [place] [address] [place] [address] 12/06/2023 Elías Rangel Obesity (BMI 30.0-34 .9) E66.9 ; Mixed hyperlipidemia E78.2 ; Essential hypertension I10 ; History of depression Z86.59 ; BPH (benign prostatic hyperplasia) N40.0 and Vitamin D deficiency E55.9 Elías Rangel III, MD [address] [place] [address] [place] [phone] 04/06/2024 Elías Rangel Obesity (BMI 30.0-34 .9) E66.9 ; Mixed hyperlipidemia E78.2 ; Essential hypertension I10 ; History of depression Z86.59 ; BPH (benign prostatic hyperplasia) N40.0 ; Vitamin D deficiency E55.9 and Prediabetes R73.03 Elías Rangel III, MD [address] [place] [address] [place] [address] 07/20/2024 Elías Rangel Obesity (BMI 30.0-34 .9) E66.9 ; Essential hypertension I10 ; Mixed hyperlipidemia E78.2 ; History of depression Z86.59 ; BPH (benign prostatic hyperplasia) N40.0 and Prediabetes R73.03 Elías Rangel III, MD [address] [place] [address] [place] [address] 10/02/2023 Elías Rangel Obesity (BMI 30.0-34 .9) E66.9 Elías Rangel III, MD [address] [place] [address] [address] [place] [address] 02/04/2024 Elías Rangel Obesity (BMI 30.0-34 .9) E66.9 Elías Rangel III, MD [address] [place] [address] [address] [place] [address] 09/16/2024 Elías Rangel Obesity (BMI 30.0-34 .9) E66.9 Assessments Encounter Date Diagnosis (ICD Code) [...] calories and sodium combined with regular exercise. 12/06/2023 Obesity (BMI 30.0-34.9) (ICD-10 - E66.9) His body mass index is 35. . We discussed his weight loss strategy at length. She will try to lose weight at a rate of one half of a pound per week through a diet restricted in fat calories and sodium combined with regular exercise. 12/06/2023 Mixed hyperlipidemia (ICD-10 - E78.2) His total cholesterol is 153 and his triglycerides are 151. He was continued on his current medications without change. 04/06/2024 Obesity (BMI 30.0-34.9) (ICD-10 - E66.9) His body mass index is 35. . We discussed his weight loss strategy at length. He will try to lose weight at a rate of one half of a pound per week through a diet restricted in fat calories and sodium combined with regular exercise. 04/06/2024 Mixed hyperlipidemia (ICD-10 - E78.2) He is tolerating the atorvastatin well. No change in his regimen was needed today. 07/20/2024 Obesity (BMI 30.0-34.9) (ICD-10 - E66.9) [...] No change in his medications was made. 10/02/2023 Obesity (BMI 30.0-34.9) (ICD-10 - E66.9) His body mass index is 33.98. He has lost 2 pounds. We discussed his weight loss strategy at length. She will try to lose weight at a rate of one half of a pound per week through a diet restricted in fat calories and sodium combined with regular exercise. 02/04/2024 Obesity (BMI 30.0-34.9) (ICD-10 - E66.9) His body mass index is 35. . We discussed his weight loss strategy at length. She will try to lose weight at a rate of one half of a pound per week through a diet restricted in fat calories and sodium combined with regular exercise. 09/16/2024 Obesity (BMI 30.0-34.9) (ICD-10 - E66.9) He has lost 5 pounds. We discussed his weight loss strategy at length. He will try to lose weight at a rate of one half of a pound per week through a diet restricted in fat calories and sodium combined with regular exercise. 09/24/2024 Mixed hyperlipidemia (ICD-10 - E78.2) 12/06/2023 Essential hypertension (ICD-10 - I10) His blood pressure is in the normal range At 130/80. I recommended weight loss and sodium restriction. No change in his medications was made. 04/06/2024 Essential hypertension (ICD-10 - I10) His blood pressure is in the normal range At 130/80. I recommended weight loss and sodium restriction. No change in his medications was made. 07/20/2024 Mixed hyperlipidemia (ICD-10 - E78.2) He is tolerating the atorvastatin well. No change in his regimen was needed today. 09/24/2024 BPH (benign prostati c hyperplasia) (ICD-10 - N40.0) 12/06/2023 History of depressio n (ICD-10 - Z86.59) His medication will be increased as needed. He is moderately depressed but stable and says the medication is benefiting him significantly. 04/06/2024 History of depressio n (ICD-10 - Z86.59) His medication will be increased as needed. He is moderately depressed but stable and says the medication is benefiting him significantly. 07/20/2024 History of depressio n (ICD-10 - Z86.59) His medication will be increased as needed. He is moderately depressed but stable and says the medication is benefiting him significantly. 09/24/2024 Prediabetes (ICD-10 - R73.03) 12/06/2023 BPH (benign prostati c hyperplasia) (ICD-10 - N40.0) He arises from sleep once or twice a night to urinate. We discussed lifestyle modification as a way to reduce nocturnal urinating. 04/06/2024 BPH (benign prostati c hyperplasia) (ICD-10 - N40.0) He arises from sleep once or twice a night to urinate. We discussed lifestyle modification as a way to reduce nocturnal urinating. 07/20/2024 BPH (benign prostati c hyperplasia) (ICD-10 - N40.0) He arises from sleep once or twice a night to urinate. We discussed lifestyle modification as a way to reduce nocturnal urinating. 12/06/2023 Vitamin D deficiency (ICD-10 - E55.9) His vitamin D level is 154. The calcium was normal at 9.1. I have reduced his vitamin D level to 1000 units daily. 04/06/2024 Vitamin D deficiency (ICD-10 - E55.9) His vitamin D level is 154. The calcium was normal at 9.1. I have reduced his vitamin D level to 1000 units daily. 07/20/2024 Prediabetes (ICD-10 - R73.03) His fasting glucose with medication is 134 with a hemoglobin A1c of 6.6. We discussed his diagnosis today, whether he has prediabetes are diet controlled adult onset type II. These values will be repeated prior to his next visit and if indicated the diagnosis will be upgraded. 04/06/2024 Prediabetes (ICD-10 - R73.03) His blood glucose fasting is 133. I have ordered a hemoglobin A1c to be done prior to his next visit. We discussed the concept of prediabetes at length and his risk of becoming diabetic if he gains more weight. We had a long discussion about weight reduction strategy. Plan Of Treatment Pending Test Test Name Order Date PROFILE, FASTING (COMPREHENSIVE METABOLI C) 04/06/2024 PROFILE, FASTING (COMPREHENSIVE METABOLI C) 02/06/2021 PROFILE, FASTING (COMPREHENSIVE METABOLI C) 11/08/2020 PROFILE, FASTING (COMPREHENSIVE METABOLI C) 09/13/2021 PROFILE, FASTING (COMPREHENSIVE METABOLI C) 09/24/2024 PROFILE, FASTING (COMPREHENSIVE METABOLI C) 12/06/2023 PROFILE, FASTING (COMPREHENSIVE METABOLI C) 05/20/2023 PROFILE, FASTING (COMPREHENSIVE METABOLI C) 06/14/2021 PROFILE, FASTING (COMPREHENSIVE METABOLI C) 05/14/2022 PROFILE, RANDOM (COMPREHENSIVE METABOLIC ) 01/15/2022 LIPID PANEL 05/20/2023 LIPID PANEL 01/15/2022 LIPID PANEL 02/06/2021 LIPID PANEL 11/08/2020 PSA, TOTAL 05/14/2022 PSA, TOTAL 05/20/2023 PSA, TOTAL 09/13/2021 PSA, TOTAL 09/24/2024 PSA, TOTAL 11/08/2020 CBC w DIFF 06/14/2021 CBC w DIFF 05/14/2022 CBC w DIFF 05/20/2023 CBC w DIFF 01/15/2022 CBC w DIFF 02/06/2021 CBC w DIFF 09/13/2021 CBC w DIFF 11/08/2020 VITAMIN D 25-OH TOTAL 11/08/2020 VITAMIN D 25-OH TOTAL 01/15/2022 CBC WITH AUTO DIFF 04/06/2024 CBC WITH AUTO DIFF 12/06/2023 CBC WITH AUTO DIFF 09/24/2024 Lipid Panel 06/14/2021 Lipid Panel 05/14/2022 Lipid Panel 04/06/2024 Lipid Panel 09/13/2021 Lipid Panel 12/06/2023 Lipid Panel 09/24/2024 Vitamin D 25-OH Total 05/14/2022 Hemoglobin A1c 09/24/2024 Hemoglobin A1c 04/06/2024 Next Appt Details Provider Name:Elías Rangel, 12/07/2024 02:00:00 PM, [address] [place] [address] , YANI Ana, [place], [phone], Insurance Providers Payer Name Payer Address Payer Phone Subscriber Number Group Number Insured Name Patient Relationship to Insured Coverage Start Date Coverage End Date MEDICARE NGS [address] [place] [address] [phone] [id number] KORY ELI Self - patient is the insured [facility] [address] [place], [place] [id number] [phone] [id number] KORY ELI Self - patient is the insured Medical (General) History Medical History History ICD Code GERD (gastroesophageal reflux disease) K 21.9 Hypertension I10 Depression F32.9 hyperlipidemia allergic to penicillin obesity hemorrhoids hearing loss tendinitis PTSD Surgical History Surgery Date(Month/Year) No history Hospitalization History Reason Date(Month/Year) No history diverticulitis [facility] 02/2020
[2024-09-24 10:55] LABS: MANUAL DIFF FLAG NO
[2024-09-24 10:58] LABS: Basophils Percent Auto 0.4 % (0-2); Eosinophils Absolute Auto 0.1 X10*3/uL (0.0-0.4); Eosinophils Percent Auto 2.1 % (0-4); Hematocrit 38.7 % (42.0-52.0); Hemoglobin 13.2 g/dl (14.0-18.0); Imm Gran Abs Auto 0.04 X10*3/uL (0.00-0.03); Imm Gran Pct Auto 0.6 % (0.0-0.4); Lymphocytes Percent Auto 29.7 % (20-40); Mean Corpuscular HGB Conc 34.1 g/dl (31.0-36.0); Mean Corpuscular Hemoglobin 31.1 pg (27.0-33.0); Mean Corpuscular Volume 91.3 fL (80.0-98.0); Mean Platelet Volume 10.4 fL (9.4-12.4); Monocytes Absolute Auto 0.5 X10*3/uL (0.1-1.2); Neutrophils Absolute Auto 4.1 x10*3/uL (2.0-8.3); Neutrophils Percent Auto 60.2 % (45-73); Platelet Count 260 X10*3/uL (160-400); Red Blood Count 4.24 X10*6/uL (4.60-5.80); Red Cell Distribution Width 14.4 % (11.0-16.0); White Blood Count 6.8 X10*3/uL (4.8-10.8)
[2024-09-24 11:07] LABS: Estimated Average Glucose 134 mg/dL; Hemoglobin A1C 152.1386 umol/L; Hemoglobin A1c % 6.3 % (<6.0); Total Hemoglobin (HGBA1C) 3382.2777 umol/L
[2024-09-24 11:10] LABS: Alanine Aminotransferase 21 U/L (0-40); Albumin Level 3.9 g/dL (3.5-5.0); Anion Gap 12 (12-20); Aspartate Amino Transferase 21 U/L (5-37); Bilirubin Total 0.4 mg/dL (0.0-1.0); Blood Urea Nitrogen 22 mg/dL (9-16); Calcium 9.2 mg/dL (8.4-10.2); Carbon Dioxide 28 mmol/L (22-29); Chloride 102 mmol/L (96-108); Cholesterol 145 mg/dL (<200); Estimated Glomerular Filt Rate > 60; Glucose Fasting 124 mg/dL (60-99); HDL Cholesterol 36 mg/dL (>40); LDL Cholesterol Calculated 79 mg/dL (<100); Potassium 3.8 mmol/L (3.3-5.1); Sodium 138 mmol/L (135-145); Total Protein 6.8 g/dL (6.5-8.0); Triglycerides 152 mg/dL (<150)
[2024-09-24 11:29] LABS: Prostate Specific Antigen 0.53 ng/mL (<0.05-4.0)
[2024-09-24 11:57] LABS: Alkaline Phosphatase 42 U/L (39-117)
== END 2024-09-24 09:41 | disposition home or self-care (01) ==
LOC: HO.10HDL 09:40
PROVIDERS: Visit Provider Internal Medicine Medical Oncology
DX: E66.9 Obesity, unspecified (principal); E78.2 Mixed hyperlipidemia; N40.0 Benign prostatic hyperplasia without lower urinary tract symptoms; R73.03 Prediabetes; Z12.5 Encounter for screening for malignant neoplasm of prostate
CPT/HCPCS: 36415; 80053; 80061; 83036; 84153; 85025

== ENCOUNTER 2024-12-02 07:37 | Outpatient (REF) | payer MEDICARE, SELFPAY ==
--- OUTSIDE RECORDS SUMMARY | 2024-12-02 07:40 | XMS_ITS ---
Author Organization Elías Rangel III, MD Address [address] [place] [address] Care Team Providers Care Presiding Judge Name Role Phone Elías Rangel Primary Care Provider Allergies Allergen (clinical drug ingredient) Drug/Non Drug Allergy documented on EMR Reaction Allergy Type Onset Date Status penicillin G Penicillin G Sodium Unknown Drug Allergy Active Results Component Value Reference Range Notes Lipid Panel Reviewed date:09/24/2024 05:34:19 PM Interpretation: Performing Lab:[facility], [address] [place] [phone] Notes/Report: Triglycerides 152 <150 mg/dL Desirable Triglyceride: less than 150 mg/dL Borderline High Triglyceride 150-199 mg/dL High Triglyceride: 200-499 mg/dL Very High Triglyceride: greater than or equal to 5OO mg/dL Cholesterol 145 <200 mg/dL Desirable Cholesterol: less than 200 mg/dL Borderline High Cholesterol: 200-239 mg/dL High Cholesterol: greater than 239 mg/dL LDL Cholesterol Calculated 79 <100 mg/dL Desirable LDL: less than 100 mg/dL Near Optimal/Above Optimal LDL: 110-129 mg/dL Borderline High LDL: 130-159 mg/dL High LDL: 160-189 mg/dL Very High LDL: greater than or equal to 190 mg/dL HDL Cholesterol 36 >40 mg/dL Desirable HDL: greater than 40 mg/dL Note: This HDL assay may give artificially low results in patients with liver disease. Hemoglobin A1c Reviewed date:09/24/2024 05:34:19 PM Interpretation: Performing Lab:[facility], [address] [place] [phone] Notes/Report: Hemoglobin A1c % 6.3 <6.0 % Hemoglobin A1C Reference Range Adults: 4.8 - 6.0 % Non diabetic: < 6.0 % Goal: < 7.0 % Additional Action Suggested: > 8.0 % Note: Hemoglobin A1c results are invalid for patients with abnormal amounts of HbF. Blood transfusions may impact the HbA1c concentration in the patient sample. Estimated Average Glucose 134 eAG = Estimated average glucose which is %A1C expressed as average glucose, using the formula of the [id number] Average Glucose study (ADAG), Diabetes Care, Vol.31,#8, Apr. 2007 REASON FOR VISIT sprained leg hunting left thigh end jun cdh er no fx then pvsands Medications [...] nonsmoker Additional Findings: Tobacco Non-User Aggressive non-smoker Problems Problem Type SNOMED Code ICD Code Onset Dates Problem Status W/U Status Risk Notes Problem 910203498 Other obesity due to excess calories (E66.09) Active confirmed Problem 691796234 Obesity, class 1 (E66.811) Active confirmed Vital Signs Temperature 97.9 degrees Fahrenheit 09/24/20 24 Blood pressure systolic 142 mm Hg 09/24/20 24 Blood pressure diastolic 88 mm Hg 024 Heart Rate 61 /min 09/24/2024 Height 64 in 09/24/2024 Weight 201 lbs 09/24/2024 BMI 34.5 kg/m2 09/24/2024 Encounters Encounter Location Date Provider Diagnosis Elías Rangel III, MD [address] [place] [address] [address] [place], [place] [phone] 09/24/2024 Elías Rangel Obesity (BMI 30.0-34 .9) E66.9 ; Essential hypertension I10 ; Mixed hyperlipidemia E78.2 ; BPH (benign prostatic hyperplasia) N40.0 ; Prediabetes R73.03 and History of depression Z86.59 Assessments Encounter Date Diagnosis (ICD Code) Assessment Notes Treat ment Notes Treatment Clinical Notes 09/24/2024 Obesity (BMI 30.0-34.9) (ICD-10 - E66.9) His weight has been stable at 201 pounds. We discussed his weight loss strategy at length. He will try to lose weight at a rate of one half of a pound per week through a diet restricted in fat calories and sodium combined with regular exercise. 09/24/2024 Essential hypertension (ICD-10 - I10) His blood pressure is higher than optimal 142/80. We have discussed aggressive weight loss and sodium restriction. He did not wish to take more medication att this time. He'll be seen back in the near future for follow-up and lifestyle modification. 09/24/2024 Mixed hyperlipidemia (ICD-10 - E78.2) His lipids are currently well controlled and no change in his regimen as necessary. 09/24/2024 BPH (benign prostati c hyperplasia) (ICD-10 - N40.0) He rises from sleep once or twice a night to urinate. We have discussed lifestyle modifications he could make to reduce nocturia. 09/24/2024 Prediabetes (ICD-10 - R73.03) His fasting glucose once again is elevated at 124. His weight is stable. His hemoglobin A1c is 6.6. I have ordered a hemoglobin additional labs prior to his next visit. 09/24/2024 History of depressio n (ICD-10 - Z86.59) His medication will be increased as needed. He is moderately depressed but stable and says the medication is benefiting him significantly. Plan Of Treatment Medication Medication Name Sig Start Date Stop Date Notes Lisinopril 40 MG 1 tablet Orally Once a day Omeprazole 20 MG 1 tablet 30 minutes before morning meal Orally Once a day Vitamin D 50 MCG (1999 UT) 1 capsule Orally Once a day Aspir-Low [...] TOTAL 09/24/2024 CBC WITH AUTO DIFF 09/24/2024 Next Appt Details Follow Up: 4 Months, Spring, Reason: OV, Routine check-up Provider Name:Elías Rangel, 12/07/2024 02:00:00 PM, [address] [place] [address] , [place] [address], [place], [phone], Progress Notes * KORY JUSTICE DDOB: [birth year] (79 yo M)Acc No.[id number]:09/24/2024 Progress Notes Patient:?VINH KORY Hodgson Provider:?Elías Rangel MD :1945???Age:79 Y???Sex:Male Hossein e:09/24/2024 Address:[address] [place], [place] [id number] Subjective: * Chief Complaints: * ???Sprained leg hunting left thigh end oct cdh er no fx then pvsands * HPI: ???COVID-19 Screening:?Questions?Have you had any new onset fever, chills, cough, congestion, sore throat, shortness of breath, muscle aches??No ???:? The patient, a 79-year-old male, presented with a history of a fall that occurred in the first week of July. He was trying to help someone who had fallen and ended up hurting his leg. He reported that the pain was located in his hip and was initially severe but has been gradually improving. He visited the emergency room and a sports clinic, where he was told that he had a sprain and no broken bones. The patient reported that the pain varies day by day and he was using a cane for support. He was also given a strap-on cast which he stopped using after being told there was nothing wrong other than the sprain. * ROS:?General/Constitutional:?Admits?pain,?Left upper leg since June 2024, otherwise only normal aches and pains.?Chills?denies.?Fatigue?admits.?Fever?denies.?ENT:?Decreased hearing?in both ears.?Respiratory:?Cough?denies.?Cardiovascular:?Chest pain with exertion?denies.?Dyspnea on exertion?denies.?Shortness of breath?denies.?Gastrointestinal:?Constipation?occasional.?Decreased appetite?denies.?Diarrhea?denies.?Heartburn?denies.?Nausea?denies.?Rectal bleeding?denies.?Vomiting?denies.?Hematology:?bruising?denies.?petechiae?denies.?Swollen glands?none have been noted.?Genitourinary:?Frequent urination?once a night.?Musculoskeletal:?Muscle aches?denies.?Painful joints?denies.?Sciatica?denies.?Weakness?denies.?Skin:?Itching?denies.?Rash?denies.?Skin lesion(s)?denies.?Neurologic:?Difficulty speaking?denies.?Dizziness?denies.?Headache?denies.?Low back pain?denies.?Psychiatric:?Depressed mood?which is mild.? * Medical History:? * Surgical History:?No history * Hospitalization/Major Diagno stic Procedure:?diverticulitis [facility] 02/2020No history * Family History:?Father: dece ased 74 yrs, Obstruction of carotid artery, diabetes mellitus, coronary artery disease.?Mother: 91 yrs, Anxiety and hypotension.?Son(s): alive.?Siblings: alive.?1 brother(s) . 2 son(s) . .? He says his sons are healthy and well. He has 1 brother that has no information about his health. One son has hypertension. He is not aware of any family history of mental illness or substance use disorder or addiction. * Social History:?Tobacco Use:?Tobacco Use/Smoking?Patient is a?nonsmoker ?Additional Findings: Tobacco Non-User?Aggressive non-smoker ???He was born in [facility]. He worked in the [employer] in [employer]. 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 He has 2 sons Hugo Burnette. He is . He lives in [facility]. He is a . His blood type is A+. * Medications:?TakingMetoprolo l Succinate ER 50 MG Tablet Extended Release 24 Hour 1.5 tablets Orally Once a day Aspir-Low 81 MG Tablet Delayed Release 1 tablet Orally Once a day Omeprazole 20 MG Tablet Delayed Release 1 tablet 30 minutes before morning meal Orally Once a day Vitamin D 50 MCG (2000 UT) Capsule 1 capsule Orally Once a day Anusol-HC 25 MG Suppository 1 suppository Rectal Three times a day Lisinopril 40 MG Tablet 1 tablet Orally Once a day Atorvastatin Calcium 10 MG Tablet 1 tablet Orally Saturday, Saturday, and Saturday Amitriptyline HCl 25 MG Tablet 1 tablet at bedtime Orally Once a day hydroCHLOROthiazide 25 MG Tablet 1 tablet in the morning Orally Once a day Medication List reviewed [...] a day Taking Vitamin D 50 MCG (2000 UT) Capsule 1 capsule Orally Once a day Taking Anusol-HC 25 MG Suppository 1 suppository Rectal Three times a day Taking Lisinopril 40 MG Tablet 1 tablet Orally Once a day Taking Atorvastatin Calcium 10 MG Tablet 1 tablet Orally Saturday, Saturday, and Saturday Taking Amitriptyline HCl 25 MG Tablet 1 tablet at bedtime Orally Once a day Taking hydroCHLOROthiazide 25 MG Tablet 1 tablet in the morning Orally Once a day Medication List reviewed and reconciled with the patient * Allergies:?Penicillin G Rich trivedi[Allergies Verified] Objective: * Vitals:?Ht: 64, Wt:201, BMI: 34.5, BP:142/88, HR:61, Temp:97.9, Wt-k.17. * ???Past Orders: Lab:Complete [...] AM)?ValueReference Range?Hemoglobin A1c %6.6H<6.0 - %?Estimated Average Phsirte046- mg/dL * Lab:Lipid Panel * Collection Date [...] 31?L (Ref Range: >40 mg/dL) * Lab:[facility] [place]. Pane l Fast * Collection Date 07/14/2024 [...] and relaxed, obese, man.?HEAD:?atraumatic, normocephalic.?EYES:?eomi, perrla, anicteric, conjugate.?EARS:?normal, Hard of hearing.?NOSE:?septum intact.?ORAL CAVITY:?normal, unremarkable.?NECK/THYROID:?no jugular venous distention, no [...] PULSES:?normal.?NEUROLOGIC:?alert and oriented, cranial nerves 2-12 grossly intact With hearing loss, deep tendon reflexes 2+ symmetrical, motor strength normal upper and lower extremities, sensory exam intact.?PSYCH:?alert, oriented, mood depressed.? Assessment: * Assessment: 1.?Essential hypertension - I10 (Primary)???Notes :His blood pressure is higher than optimal 142/80.? We have discussed aggressive weight loss and sodium restriction.? He did not wish to take more medication att this time.? He'll be seen back in the near future for follow-up and lifestyle modification.???2.?Obesity (BMI 30.0-34.9) - E66.9???Notes :His weight has been stable at 201 pounds. We discussed his weight loss strategy at length. He will try to lose weight at a rate of one half of a pound per week through a diet restricted in fat calories and sodium combined with regular exercise.???3.?Mixed hyperlipidemia - E78.2???Notes :His lipids are currently well controlled and no change in his regimen as necessary.???4.?BPH (benign prostatic hyperplasia) - N40.0???Notes :He rises from sleep once or twice a night to urinate.? We have discussed lifestyle modifications he could make to reduce nocturia.???5.?Prediabetes - R73.03???Notes :His fasting glucose once again is elevated at 124.? His weight is stable.? His hemoglobin A1c is 6.6.? I have ordered a hemoglobin additional labs prior to his next visit.???6.?History of depression - Z86.59???Notes :His medication will be increased as needed. He is moderately depressed but stable and says the medication is benefiting him significantly.??? Plan: * Treatment: ? Value Reference Range ?Triglycerides 152 H <150 - mg /dL * ?Cholesterol 145 <200 - mg/d L * ?LDL Cholesterol Calculated 79 <100 - mg/dL * ?HDL Cholesterol 36 L >40 - m g/dL ?LAB: Hemoglobin A1c (Collection Date & Time - 09/24/2024 09:45 AM)* ? Value Reference Range ?Hemoglobin A1c % 6.3 H <6.0 - % * ?Estimated Average Glucose 134 - mg/dL 2.?Mixed hyperlipidemia?LAB: PROFILE, FASTING (COMPREHENSIVE METABOLIC) ?LAB: PSA, TOTAL ?LAB: CBC WITH AUTO DIFF ?LAB: Lipid Panel (Collection Date & Time - 09/24/2024 09:45 AM)* ? Value Reference Range ?Triglycerides 152 H <150 - mg /dL * ?Cholesterol 145 <200 - mg/d L * ?LDL Cholesterol Calculated 79 <100 - mg/dL * ?HDL Cholesterol 36 L >40 - m g/dL ?LAB: Hemoglobin A1c (Collection Date & Time - 09/24/2024 09:45 AM)* ? Value Reference Range ?Hemoglobin A1c % 6.3 H <6.0 - % * ?Estimated Average Glucose 134 - mg/dL 3.?BPH (benign prostatic hyperplasia)?LAB: PROFILE, FASTING (COMPREHENSIVE METABOLIC) ?LAB: PSA, TOTAL ?LAB: CBC WITH AUTO DIFF ?LAB: Lipid Panel (Collection Date & Time - 09/24/2024 09:45 AM)* ? Value Reference Range ?Triglycerides 152 H <150 - mg /dL * ?Cholesterol 145 <200 - mg/d L * ?LDL Cholesterol Calculated 79 <100 - mg/dL * ?HDL Cholesterol 36 L >40 - m g/dL ?LAB: Hemoglobin A1c (Collection Date & Time - 09/24/2024 09:45 AM)* ? Value Reference Range ?Hemoglobin A1c % 6.3 H <6.0 - % * ?Estimated Average Glucose 134 - mg/dL 4.?Prediabetes?LAB: PROFILE, FASTING (COMPREHENSIVE METABOLIC) ?LAB: PSA, TOTAL ?LAB: CBC WITH AUTO DIFF ?LAB: Lipid Panel (Collection Date & Time - 09/24/2024 09:45 AM)* ? Value Reference Range ?Triglycerides 152 H <150 - mg /dL * ?Cholesterol 145 <200 - mg/d L * ?LDL Cholesterol Calculated 79 <100 - mg/dL * ?HDL Cholesterol 36 L >40 - m g/dL ?LAB: Hemoglobin A1c (Collection Date & Time - 09/24/2024 09:45 AM)* ? Value Reference Range ?Hemoglobin A1c % 6.3 H <6.0 - % * ?Estimated Average Glucose 134 - mg/dL * Procedure Codes:? * Preventive Medicine:? ??Counseling:?Care [...] Other reason not done * Follow Up:?4 Months, Spring (Reason: OV, Routine check-up) * Images: * Sign off status: Completed true * Provider:?Elías Rangel MD Date:?08/31 Generated for Wilfredo ying/Axel/eTransmitting on:?12/02/2024 07:40 AM EST History and Physical Notes * [...] EYES: eomi, perrla, anicte julia, conjugate EARS: normal, Hard of hear ing NOSE: septum intact NECK/THYROID: no jugular venous di stention, no carotid bruit, thyroid normal HEART: no clicks, gallops, murmurs, or rubs, regular rhythm, S1, S2 normal, no s3, or vascular bruits LUNGS: clear to auscultatio n ABDOMEN: bowel sounds normal, no ascites, no organomegaly, no mass, centripital obesity NEUROLOGIC: alert and oriented, cranial nerves 2-12 grossly intact With hearing loss, deep tendon reflexes 2+ symmetrical, motor strength normal upper and lower extremities, sensory exam intact SKIN: no suspicious lesion s, anicteric PERIPHERAL PULSES: normal BREASTS: no masses palpable b ilaterally MUSCULOSKELETAL: extremities unremark able, no clubbing, cyanosis or edema LYMPH NODES: no enlarged lymph no clarissa,spleen normal RECTAL EXAM: not examined PSYCH: alert, oriented, moo d depressed ORAL CAVITY: normal, unremarkable
--- OUTSIDE RECORDS SUMMARY | 2024-12-02 07:40 | XMS_ITS | Continuity of Care Document ---
Author Name [facility] Organization [facility] Care Team Providers Care Home Energy Auditor Name Role Phone [facility] Unavailable Unavailable Problems Combined list of problems from Department of Defense and Veterans Affairs facilities. It does not include entries that were removed or entered in error. Problem Status Onset Date Problem Type Date of Resolution Comments Source Anxiety ([facility] [id number]) [facility] Condition [facility] Chronic Post-Traumatic Stress Disorder ([facility] [id number]) Active Condition [facility] Exposure to potentially hazardous substance Active Condition [facility] GERD - Gastro-Esophageal Reflux Disease ([facility] [id number]) Active Condition [facility] HTN - Hypertension ([facility] [id number]) Active Condition [facility] Hypercholesterolemia ([facility] [id number]) Active Condition [facility] [...] ONCE DAILY ORAL ACTIVE [facility]OMA EDGAR 2020 [facility] ASPIRIN 81MG TAB,EC TAKE ONE TABLET BY MOUTH ONCE DAILY [facility]AL [facility] ATORVASTATI N CA 20MG TAB TAKE ONE-HALF TABLET BY MOUTH THREE TIMES A WEEK ORAL ACTIVE CHIOMA EDGARH 2020 [facility] HYDROCHLORO THIAZIDE 25MG TAB TAKE ONE TABLET BY MOUTH ONCE DAILY ORAL ACTIVE [facility]IOMA EDGARH 2020 [facility] LISINOPRIL 40MG TAB TAKE ONE TABLET BY MOUTH ONCE DAILY ORAL ACTIVE [facility] EDGARH 2020 [facility] METOPROLOL SUCCINATE 25MG TAB,SA TAKE THREE TABLETS BY MOUTH ONCE DAILY ORAL ACTIVE CHIOMA EDGARH 2020 [facility] OMEPRAZOLE 20MG CAP,EC TAKE 1 CAPSULE BY MOUTH TWICE DAILY ORAL ACTIVE [facility] EDGARH 2020 [facility] PROBIOTIC COMBINATION CAP/TAB TAKE 1 CAPSULE BY MOUTH ONCE DAILY ORAL ACTIVE CHIOMA EDGARH 2020 [facility] VITAMIN D3 (CHOLECALCI FEROL) TAB TAKE BY MOUTH ONCE DAILY ORAL ACTIVE [facility] EDGARH 2020 [facility] Allergies, Adverse Reactions, Alerts Combined list of allergies from Department of Defense and Veterans Affairs facilities. It does not include entries that were removed or entered in error. Substance Category Reaction Severity Reaction type Status Date Reported Comments Source PENICILLIN Propensity to adverse reactions to drug (finding) Dyspnea [facility] Immunizations Combined list of available immunizations from the Department of Defense and Veterans Affairs facilities. Immunization Series Date Given Administered By Site Reaction Lot Number CVX Code Drug Firer Helper Status Comments Source COVID-19 ([employer]), VECTOR-NR, RS-AD26, PF, 0.5 ML 1 2020 [...] May 06, 2024 03:59 PM Reporting Lab: [facility] [place] [address] [address] Performing Lab: [facility] [place] [facility] [address] [facility] [address] [facility] CBC ERYTHROCYTE S [#/VOLUME] IN BLOOD BY AUTOMATED COUNT 4.73 10*6/u L 4.23 - 5.66 06/10 Specimen Type: BLOOD No comment entered. Ordering Provider: MARGO IBARRA Report Released Date/Time: May 06, 2024 03:59 PM Reporting Lab: [facility] [place] [facility] [address] [facility] [address] Performing Lab: [facility] [place] [address] [address] [facility] CBC HEMOGLOBIN [MASS/VOLUM E] IN BLOOD 14.1 g/dL 12.8 - 17 06/10 Specimen Type: BLOOD No comment entered. Ordering Provider: MARGO IBARRA Report Released Date/Time: May 06, 2024 03:59 PM Reporting Lab: [facility] [place] [facility] [address] [facility] [address] Performing Lab: [facility] [place] [address] [address] [facility] CBC HEMATOCRIT [VOLUME FRACTION] OF BLOOD BY AUTOMATED COUNT 40.8 39.2 - 50.4 06/10 Specimen Type: BLOOD No comment entered. Ordering Provider: MARGO IBARRA Report Released Date/Time: May 06, 2024 03:59 PM Reporting Lab: [facility] [address] [place] [address] Performing Lab: [facility] [place] [facility] [address] [facility] [address] [facility] CBC MCV [ENTITIC VOLUME] BY AUTOMATED COUNT 86.3 fL 82 - 99 06/10 Specimen Type: BLOOD No comment entered. Ordering Provider: MARGO IBARRA Report Released Date/Time: May 06, 2024 03:59 PM Reporting Lab: [facility] [address] [facility] [address] Performing Lab: [facility] [place] [facility] [address] [facility] [address] [facility] CBC MCHC [MASS/VOLUM E] BY AUTOMATED COUNT 34.6 g/dL 30.8 - 35.1 06/10 Specimen Type: BLOOD No comment entered. Ordering Provider: MARGO IBARRA Report Released Date/Time: May 06, 2024 03:59 PM Reporting Lab: [facility] [place] [facility] [address] [facility] [address] Performing Lab: [facility] [place] [facility] [address] [facility] [address] [facility] [place] [facility] CBC PLATELETS [#/VOLUME] IN BLOOD BY AUTOMATED COUNT 293 10*3/u L 140 - 360 06/10 Specimen Type: BLOOD No comment entered. Ordering Provider: MARGO IBARRA Report Released Date/Time: May 06, 2024 03:59 PM Reporting Lab: [facility] [place] [facility] [address] [facility] [address] Performing Lab: [facility] [place] [facility] [address] [facility] [address] [facility] CBC ERYTHROCYTE DISTRIBUTIO N WIDTH [RATIO] BY AUTOMATED COUNT 13.1 12.0 - 16.0 06/10 Specimen Type: BLOOD No comment entered. Ordering Provider: MARGO IBARRA Report Released Date/Time: May 06, 2024 03:59 PM Reporting Lab: [facility] [place] [facility] [address] [facility] [address] Performing Lab: [facility]USETS [facility] [address] [facility] [address] [facility] CBC MCH [ENTITIC MASS] BY AUTOMATED COUNT 29.8 pg 26.2 - 32.6 06/10 Specimen Type: BLOOD No comment entered. Ordering Provider: MARGO IBARRA Report Released Date/Time: May 06, 2024 03:59 PM Reporting Lab: [facility]PITALRRED BAY HOSPITALTRN [facility]ENTERUSE[facility] [address] [facility] [address] Performing Lab: [facility] HOSPITALRST. VINCENT'[facility] BLOUNTN [facility]ENTERUSEHUDSON VALLEY [facility] [address] [facility] [address] [facility]ENTERUSE [facility] BASIC METABOLIC PANEL (non-fast ing) UREA NITROGEN [MASS/VOLUM E] IN SERUM OR PLASMA 18 mg/dL 7 - 25 06/10 Specimen Type: SERUM No comment entered. Ordering Provider: MARGO IBARRA Report Released Date/Time: May 06, 2024 03:59 PM Reporting Lab: [facility] HOSPITALRST. VINCENT'S BLOUNTN [facility]ENTERUSEHUDS[facility] [address] [facility] [address] Performing Lab: [facility]OSPITALRRED BAY HOSPITALTRN [facility]ENTERUSEHUDS[facility] [address] [facility] [address] [facility] CENTERUSE [facility] BASIC METABOLIC PANEL (non-fast ing) GLUCOSE [MASS/VOLUM E] IN SERUM OR PLASMA 141 mg/dL 65 - 100 06/10 H Specimen Type: SERUM No comment entered. Ordering Provider: MARGO IBARRA Report Released Date/Time: May 06, 2024 03:59 PM Reporting Lab: [facility]OSPITALRRED BAY HOSPITALTRN [facility]ENTERUSEHUDS[facility] [address] [facility] [address] Performing Lab: [facility]OSPITALR WSTRN [facility]ENTERUSEHUDS[facility] [address] [facility] [address] [facility]OSPITALRST. VINCENT'S BLOUNTN [facility] CENTERUSE [facility] BASIC METABOLIC PANEL (non-fast ing) SODIUM [MOLES/VOLU ME] IN SERUM OR PLASMA 132 mmol/L 135 - 145 06/10 L Specimen Type: SERUM No comment entered. Ordering Provider: MARGO IBARRA Report Released Date/Time: May 06, 2024 03:59 PM Reporting Lab: [facility] [place] [facility] [address] [facility] [address] Performing Lab: [place] [facility] [facility] CENTERUSETS [facility] [address] [facility] [address] [facility]OSPITALRL WSTRN [facility] CENTERUSE [facility] BASIC METABOLIC PANEL (non-fast ing) POTASSIUM [MOLES/VOLU ME] IN SERUM OR PLASMA 4.2 mmol/L 3.5 - 5.0 06/10 Specimen Type: SERUM No comment entered. Ordering Provider: MARGO IBARRA Report Released Date/Time: May 06, 2024 03:59 PM Reporting Lab: [facility] HOSPITALRL WSTRN [facility] CENTERUSETS [address] [address] Performing Lab: [facility] HOSPITALRL WSTRN [facility] CENTERUSE[address] [address] [facility] HOSPITALRL TRN [facility]ENTERUSE [facility] BASIC METABOLIC PANEL (non-fast ing) CHLORIDE [MOLES/VOLU ME] IN SERUM OR PLASMA 97 mmol/L 100 - 110 06/10 L Specimen Type: SERUM No comment entered. Ordering Provider: MARGO IBARRA Report Released Date/Time: May 06, 2024 03:59 PM Reporting Lab: [facility] HOSPITALRL WSTRN [facility] CENTERUSETS [address] [address] Performing Lab: [place] [facility] CENTERUSETS [address] [address] [facility]OSPITALRL TRN [facility] CENTERUSE [facility] BASIC METABOLIC PANEL (non-fast ing) CARBON DIOXIDE, TOTAL [MOLES/VOLU ME] IN SERUM OR PLASMA 24 meq/L 20 - 30 06/10 Specimen Type: SERUM No comment entered. Ordering Provider: MARGO IBARRA Report Released Date/Time: May 06, 2024 03:59 PM Reporting Lab: [facility] HOSPITALRL WSTRN [facility] CENTERUSETS [address] [address] Performing Lab: [place] [facility] CENTERUSETS [address] [address] [facility] BASIC METABOLIC PANEL (non-fast ing) CREATININE [MASS/VOLUM E] IN SERUM OR PLASMA 1.17 mg/dL 0.50 - 1.40 06/10 Specimen Type: SERUM No comment entered. Ordering Provider: MARGO IBARRA Report Released Date/Time: May 06, 2024 03:59 PM Reporting Lab: [facility] HOSPITALRST. VINCENT'S BLOUNTN [facility] CENTERUSEHUDS[facility] [address] [facility] [address] Performing Lab: [facility] HOSPITALRRED BAY HOSPITALTRN [facility]ENTERUSEHUDS[facility] [address] [facility] [address] [facility]N [facility] CENTERUSE [facility] BASIC METABOLIC PANEL (non-fast ing) GLOMERULAR FILTRATION RATE/1.73 SQ M.PREDICTED [VOLUME RATE/AREA] IN SERUM, PLASMA OR BLOOD BY CREATININE- BASED FORMULA (CKD-EPI 2020) 64 mL/min 60 06/10 Specimen Type: SERUM No comment entered. Ordering Provider: MARGO IBARRA Report Released Date/Time: May 06, 2024 03:59 PM Reporting Lab: [facility] HOSPITALRST. VINCENT'S BLOUNTN [facility] CENTERUSEHUDS[facility] [address] [facility] [address] Performing Lab: [facility]N [facility] [address] [facility] [address] [place] [address] LIPID PANEL, NON FASTING CHOLESTEROL [MASS/VOLUM E] IN SERUM OR PLASMA 171 mg/dL 06/10 Specimen Type: SERUM No comment entered. Ordering Provider: MARGO IBARRA Report Released Date/Time: May 06, 2024 03:59 PM Reporting Lab: [facility] HOSPITALRST. VINCENT'S BLOUNTN [facility] CENTERUSEHUDS[facility] [address] [facility] [address] Performing Lab: [facility]OSPITALRST. VINCENT'[facility] BLOUNTN [facility]ENTERUSEHUDS[facility] [address] [facility] [address] [facility] LIPID PANEL, NON FASTING TRIGLYCERID E [MASS/VOLUM E] IN SERUM OR PLASMA 144 mg/dL 0 - 150 06/10 Specimen Type: SERUM No comment entered. Ordering Provider: MARGO IBARRA Report Released Date/Time: May 06, 2024 03:59 PM Reporting Lab: [facility] [place] [facility] [address] [facility] [address] Performing Lab: [place] [facility] CENTERUSETS [facility] [address] [facility] [address] [facility]OSPITALRL WSTRN [facility] CENTERUSE [facility] LIPID PANEL, NON FASTING CHOLESTEROL IN LDL [MASS/VOLUM E] IN SERUM OR PLASMA BY CALCULATION 108 mg/dL 0 - 129 06/10 Specimen Type: SERUM No comment entered. Ordering Provider: MARGO IBARRA Report Released Date/Time: May 06, 2024 03:59 PM Reporting Lab: [facility] HOSPITALRL WSTRN [facility] CENTERUSETS [facility] [address] [facility] [address] Performing Lab: [facility]OSPITALRL WSTRN [facility]ENTERUSETS [facility] [address] [facility] [address] [facility]OSPITALRRED BAY HOSPITALTRN [facility]ENTERUSE [facility] LIPID PANEL, NON FASTING CHOLESTEROL .TOTAL/CHOL ESTEROL IN HDL [MASS RATIO] IN SERUM OR PLASMA 5.0 06/10 Specimen Type: SERUM No comment entered. Ordering Provider: MARGO IBARRA Report Released Date/Time: May 06, 2024 03:59 PM Reporting Lab: [facility] HOSPITALRL TRN [facility] CENTERUSETS [facility] [address] [facility] [address] Performing Lab: [place] [facility] [facility] CENTERUSETS [facility] [address] [facility] [address] [facility]OSPITALRL RUSTN [facility]ENTERUSE [facility] LIPID PANEL, NON FASTING CHOLESTEROL IN HDL [MASS/VOLUM E] IN SERUM OR PLASMA 34 mg/dL 40 - 60 06/10 L Specimen Type: SERUM No comment entered. Ordering Provider: MARGO IBARRA Report Released Date/Time: May 06, 2024 03:59 PM Reporting Lab: [facility]OSPITALRL [facility]N [place] [facility] [address] [facility] [address] Performing Lab: [place] [facility]ITALCHUSETS [facility] [address] [facility] [address] [facility]OSPITALRL TRN [facility]ITALCHUSE [facility] LIVER FUNCTION PROTEIN [MASS/VOLUM E] IN SERUM OR PLASMA 7.1 g/dL 6.0 - 8.3 06/10 Specimen Type: SERUM No comment entered. Ordering Provider: MARGO IBARRA Report Released Date/Time: May 06, 2024 03:59 PM Reporting Lab: [facility] [place] [facility] [address] [facility] [address] Performing Lab: [facility] [place] [facility] [address] [facility] [address] [facility] [place] [facility] LIVER FUNCTION ALBUMIN [MASS/VOLUM E] IN SERUM OR PLASMA 3.9 g/dL 3.5 - 5.0 06/10 Specimen Type: SERUM No comment entered. Ordering Provider: MARGO IBARRA Report Released Date/Time: May 06, 2024 03:59 PM Reporting Lab: [facility] [place] [facility] [address] [facility] [address] Performing Lab: [facility] [place] [address] [address] [facility] [place] [facility] LIVER FUNCTION ALKALINE PHOSPHATASE [ENZYMATIC ACTIVITY/VO LUME] IN SERUM OR PLASMA 53 U/L 40 - 150 06/10 Specimen Type: SERUM No comment entered. Ordering Provider: MARGO IBARRA Report Released Date/Time: May 06, 2024 03:59 PM Reporting Lab: [facility] [place] [facility] [address] [facility] [address] Performing Lab: [facility] [place] [facility] [address] [facility] [address] [facility] [place] [facility] LIVER FUNCTION ASPARTATE AMINOTRANSF ERASE [ENZYMATIC ACTIVITY/VO LUME] IN SERUM OR PLASMA 19 U/L 5 - 34 06/10 Specimen Type: SERUM No comment entered. Ordering Provider: MARGO IBARRA Report Released Date/Time: May 06, 2024 03:59 PM Reporting Lab: [facility] [place] [facility] [address] [facility] [address] Performing Lab: [facility] [place] [facility] [address] [facility] [address] [facility] [place] [facility] LIVER FUNCTION ALANINE AMINOTRANSF ERASE [ENZYMATIC ACTIVITY/VO LUME] IN SERUM OR PLASMA 29 U/L 06/10 Specimen Type: SERUM No comment entered. Ordering Provider: MARGO IBARRA Report Released Date/Time: May 06, 2024 03:59 PM Reporting Lab: [facility] [place] [facility] [address] [facility] [address] Performing Lab: [facility] [place] [facility] [address] [facility] [address] [facility] [place] [facility] LIVER FUNCTION BILIRUBIN.T OTAL [MASS/VOLUM E] IN SERUM OR PLASMA 0.7 mg/dL 0.2 - 1.2 06/10 Specimen Type: SERUM No comment entered. Ordering Provider: MARGO IBARRA Report Released Date/Time: May 06, 2024 03:59 PM Reporting Lab: [facility] [place] [facility] [address] [facility] [address] Performing Lab: [facility] [place] [facility] [address] [facility] [address] [facility] [place] [facility] Vital Signs Combined list of inpatient and outpatient Vital Signs from Department of Defense and Veterans Affairs, ranging from 12 months to all on record, depending upon the facility. Vital Sign Value Date Comments Source SYSTOLIC BLOOD PRESSURE 166 06/15/20 24 15:19:42 [facility] [place] [facility] DIASTOLIC BLOOD PRESSURE 81 024 15:19:42 [facility] [place] [facility] PULSE OXIMETRY 94 06/15/2024 15:19:42 [facility] WEIGHT 211 06/15/2024 15:19:42 [facility] BMI 36 kg/m2 06/15/2024 15:19:42 [facility] PAIN 0 06/15/2024 15:19:42 [facility] HEIGHT 64 06/15/2024 15:19:42 [facility] [place] [facility] TEMPERATURE 98.1 06/15/2024 15:19:42 [facility] PULSE 63 06/15/2024 15[facility]19:42 [facility] RESPIRATION 20 06/15/2024 15:19:42 [facility] [place] Encounters Combined list of: 1) Encounters from Department of Veterans Affairs facilities going backup to the last 18 months, not all VA inpatient encounters are included; 2) Encounters from the Department of Defense facilities going backup to 280 months. Location Location Details Encounter Type Encounter Number Reason For Visit Attending Provider ADM Date DC Date Status Disposition Source [facility] [place] [facility] OFFICE O/P EST LOW 20 MIN [id number] Diagnos is: ICD-10- CM I10 Essenti al (primar y) hyperte Lucas Byrne 06/15 [facility] [place] [facility] Social History Combined list of [...] NEVER USED 05/18/2021 [facility] [place] [facility] History of tobacco use VA-TOBACCO NEVER USED 05/02/2021 [facility] [place] [facility]
--- OUTSIDE RECORDS SUMMARY | 2024-12-02 07:41 | XMS_ITS | Patient Health Record ---
Author Organization Elías Rangel III, MD Address [address] [place] [address] Care Team Providers Care Fire Prevention Officer Name Role Phone Elías Rangel Primary Care Provider Allergies Allergen (clinical drug ingredient) Drug/Non Drug Allergy documented on EMR Reaction Allergy Type Onset Date Status penicillin G Penicillin G Sodium Unknown Drug Allergy Active Results Component Value Reference Range Notes Lipid Panel Reviewed date:09/24/2024 05:34:19 PM Interpretation: Performing Lab:[facility], [address] [place] [phone] Notes/Report: Triglycerides 152 <150 mg/dL Desirable Triglyceride: [...] A1c Reviewed date:09/24/2024 05:34:19 PM Interpretation: Performing Lab:[facility], [address] [place] [phone] Notes/Report: Hemoglobin A1c % 6.3 <6.0 % [...] average glucose, using the formula of the S1Y-Habwkxh Average Glucose study (ADAG), Diabetes Care, Vol.31,#8, 2007 Complete Blood Count Auto Di ff Reviewed date:03/30/2024 04:39:03 PM Interpretation: Performing Lab:[facility], [address] [place] [phone] Notes/Report: White Blood Count 7.8 4.8-10.8 X10*3/uL [...] NRBC Abs Auto 0.000 0.0-0.012 X10*3/uL Comprehensive [place]. Panel Fa st Reviewed date:03/30/2024 04:39:03 PM Interpretation: Performing Lab:[facility], [address] [place] [phone] Notes/Report: Sodium 131 135-145 mmol/L Potassium 3.7 3.3-5.1 mmol/L Chloride 99 96-108 mmol/L Carbon Dioxide 24 22-29 mmol/L Anion Gap 12 12-20 Blood Urea Nitrogen 15 9-16 mg/dL Creatinine 0.90 0.5-1.4 mg/dL Estimated Glomerular Filt Rate > 60 NOTE: For -Togolese individuals, multiply the result by 1.210. Chronic [...] Panel Reviewed date:03/30/2024 04:39:03 PM Interpretation: Performing Lab:[facility], [address] [place] [phone] Notes/Report: Triglycerides 158 <150 mg/dL Desirable Triglyceride: [...] ff Reviewed date:07/14/2024 11:38:15 AM Interpretation: Performing Lab:[facility], [address] [place] [phone] Notes/Report: White Blood Count 8.6 4.8-10.8 X10*3/uL [...] NRBC Abs Auto 0.000 0.0-0.012 X10*3/uL Comprehensive [place]. Panel Fa st Reviewed date:07/14/2024 11:38:15 AM Interpretation: Performing Lab:[facility], [address] [place] [phone] Notes/Report: Sodium 136 135-145 mmol/L Potassium 4.0 3.3-5.1 mmol/L Chloride 102 96-108 mmol/L Carbon Dioxide 28 22-29 mmol/L Anion Gap 10 12-20 Blood Urea Nitrogen 19 9-16 mg/dL Creatinine 1.12 0.5-1.4 mg/dL Estimated Glomerular Filt Rate > 60 NOTE: For -Togolese individuals, multiply the result by 1.210. Chronic [...] Panel Reviewed date:07/14/2024 11:38:15 AM Interpretation: Performing Lab:[facility], [address] [place] [phone] Notes/Report: Triglycerides 142 <150 mg/dL Desirable Triglyceride: [...] A1c Reviewed date:07/14/2024 11:38:15 AM Interpretation: Performing Lab:[facility], [address] [place] [phone] Notes/Report: Hemoglobin A1c % 6.6 <6.0 % [...] average glucose, using the formula of the J4C-Jyllzou Average Glucose study (ADAG), Diabetes Care, Vol.31,#8, Apr. 2007 Complete Blood Count Auto Di ff Reviewed date:09/24/2024 05:34:19 PM Interpretation: Performing Lab:[facility], [address] [place] [phone] Notes/Report: White Blood Count 6.8 4.8-10.8 X10*3/uL Red Blood Count 4.24 4.60-5.80 X10*6/uL Hemoglobin 13.2 14.0-18.0 g/dl Hematocrit 38.7 42.0-52.0 % Mean Corpuscular Volume 91.3 80.0-98.0 fL Mean Corpuscular Hemoglobin 31.1 27.0-33.0 pg Mean Corpuscular HGB Conc 34.1 31.0-36.0 g/dl Red Cell Distribution Width 14.4 11.0-16.0 % Platelet Count 260 160-400 X10*3/uL Mean Platelet Volume 10.4 9.4-12.4 fL Neutrophils Percent Auto 60.2 45-73 % Imm Gran Pct Auto 0.6 0.0-0.4 % Lymphocytes Percent Auto 29.7 20-40 % Monocytes Percent Auto 7.0 2-11 % Eosinophils Percent Auto 2.1 0-4 % Basophils Percent Auto 0.4 0-2 % NRBC Pct Auto 0.0 0.0-0.2 /100WBC Neutrophils Absolute Auto 4.1 2.0-8.3 x10*3/u L Imm Gran Abs Auto 0.04 0.00-0.03 X10*3/uL Lymphocytes Absolute Auto 2.0 1.2-4.9 X10*3/u L Monocytes Absolute Auto 0.5 0.1-1.2 X10*3/uL Eosinophils Absolute Auto 0.1 0.0-0.4 X10*3/u L Basophils Absolute Auto 0.0 0.0-0.2 X10*3/uL NRBC Abs Auto 0.000 0.0-0.012 X10*3/uL Comprehensive [place]. Panel [facility] Reviewed date:09/24/2024 05:34:19 PM Interpretation: Performing Lab:[facility], [address] [place] [phone] Notes/Report: Sodium 138 135-145 mmol/L Potassium 3.8 3.3-5.1 mmol/L Chloride 102 96-108 mmol/L Carbon Dioxide 28 22-29 mmol/L Anion Gap 12 12-20 Blood Urea Nitrogen 22 9-16 mg/dL Creatinine 0.80 0.5-1.4 mg/dL Estimated Glomerular Filt Rate > 60 Chronic Kidney Disease: Estimated GFR < 60 mL/min/1.73m2 Severe Kidney Disease: Estimated GFR < 15 mL/min/1.73m2 Glucose Fasting 124 60-99 mg/dL A fasting glucose from 100-125 mg/dl is considered impaired (pre-diabetes). Calcium 9.2 8.4-10.2 mg/dL Bilirubin Total 0.4 0.0-1.0 mg/dL Aspartate Amino Transferase 21 5-37 U/L Alanine Aminotransferase 21 0-40 U/L Total Protein 6.8 6.5-8.0 g/dL Albumin Level 3.9 3.5-5.0 g/dL Alkaline Phosphatase 42 39-117 U/L Prostate Specific Antigen Reviewed date:09/24/2024 05:34:19 PM Interpretation: Performing Lab:[facility], [address] [place] [phone] Notes/Report: Prostate Specific Antigen 0.53 <0.05-4.0 ng/mL PSA methodology: Franco Alinity i Chemiluminescent Microparticle Immunoassay (CMIA) Reason For Referral No Information Medications Medication SIG (Take, Route, Frequency, Duration) Notes Start Date End Date Status Amitriptyline HCl 25 MG TAKE 1 TABLET BY MOUTH AT BEDTIME for 90 Active hydroCHLOROthiazide 25 MG 1 tablet in th e morning Orally Once a day Active Atorvastatin Calcium 10 MG TAKE 1 TABLET BY MOUTH ONCE EVERY SATURDAY, SATURDAY AND SATURDAY FOR 90 DAYS for 90 Active Omeprazole 20 MG 1 tablet 30 minutes before morning meal Orally Once a day Active Vitamin D 50 MCG (1999) 1 capsule Ora lly Once a day Active Metoprolol Succinate ER 50 MG 1.5 tablet s Orally Once a day 11/08/2020 Active Aspir-Low 81 MG 1 tablet Orally Once a day Active Lisinopril 40 MG Take 1 tablet by martín th once daily for 90 Active Anusol-HC 25 MG 1 suppository Rectal [...] Problem Status W/U Status Risk Notes Problem 561478215405917 Obesity (BMI 30.0-34.9) (E66.9) Active confirmed His weight has been stable at 201 pounds. We discussed his weight loss strategy at length. He will try to lose weight at a rate of one half of a pound per week through a diet restricted in fat calories and sodium combined with regular exercise. Problem 884237527 Other obesity due to excess calories (E66.09) Active confirmed Problem 135253729 Mixed hyperlipidemia (E78.2) Active confirmed His lipids are currently well controlled and no change in his regimen as necessary. Problem Benign prostatic hyperplasia (008079918) BPH (benign prostatic hyperplasia) (N40.0) Active confirmed He rises from sleep once or twice a night to urinate. We have discussed lifestyle modifications he could make to reduce nocturia. Problem 88200102 Essential hypertension (I10) Active confirmed His blood pressure is higher than optimal 142/80. We have discussed aggressive weight loss and sodium restriction. He did not wish to take more medication att this time. He'll be seen back in the near future for follow-up and lifestyle modification. Problem 36448901 Vitamin D deficiency (E55.9) Active confirmed His vitamin D level is 154. The calcium was normal at 9.1. I have reduced his vitamin D level to 1000 units daily. Problem 986752079 Prediabetes (R73.03) Active confirmed His fasting glucose once again is elevated at 124. His weight is stable. His hemoglobin A1c is 6.6. I have ordered a hemoglobin additional labs prior to his next visit. Problem 237212115 History of depression (Z86.59) Active confirmed His medication will be increased as needed. He is moderately depressed but stable and says the medication is benefiting him significantly. 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 Problem 644140484 Obesity, class 1 (E66.811) Active confirmed Vital Signs Heart Rate 61 /min 09/24/2024 Temperature 97.9 degrees Fahrenheit 09/24/2024 Blood pressure diastolic 88 mm Hg 09/24/2024 Height 64 in 09/24/2024 Blood pressure systolic 142 mm Hg 09/24/2024 Weight 201 lbs 09/24/2024 BMI 34.5 kg/m2 09/24/2024 Encounters Encounter Location Date Provider Diagnosis Elías Rangel III, MD [address] [place] [address] [place] [phone] 12/06/2023 Elías Rangel Obesity (BMI 30.0-34 .9) E66.9 ; Mixed hyperlipidemia E78.2 ; Essential hypertension I10 ; History of depression Z86.59 ; BPH (benign prostatic hyperplasia) N40.0 and Vitamin D deficiency E55.9 Elías Rangel III, MD [address] [place] [address] [place] [address] 04/06/2024 Elías Rangel Obesity (BMI 30.0-34 .9) E66.9 ; Mixed hyperlipidemia E78.2 ; Essential hypertension I10 ; History of depression Z86.59 ; BPH (benign prostatic hyperplasia) N40.0 ; Vitamin D deficiency E55.9 and Prediabetes R73.03 Elías Rangel III, MD [address] [place] [address] [place] [phone] 07/20/2024 Elías Rangel Obesity (BMI 30.0-34 .9) E66.9 ; Essential hypertension I10 ; Mixed hyperlipidemia E78.2 ; History of depression Z86.59 ; BPH (benign prostatic hyperplasia) N40.0 and Prediabetes R73.03 Elías Rangel III, MD [address] [place] [address] [place] [phone] 09/24/2024 Elías Rangel Obesity (BMI 30.0-34 .9) E66.9 ; Essential hypertension I10 ; Mixed hyperlipidemia E78.2 ; BPH (benign prostatic hyperplasia) N40.0 ; Prediabetes R73.03 and History of depression Z86.59 Elías Rangel III, MD [address] [place] [address] [place] [address] 02/04/2024 Elías Rangel Obesity (BMI 30.0-34 .9) E66.9 Elías Rangel III, MD [address] [place] [address] [place] [phone] 09/16/2024 Elías Rangel Obesity (BMI 30.0-34 .9) E66.9 Assessments Encounter Date Diagnosis (ICD Code) Assessment Notes Treat ment Notes Treatment Clinical Notes 12/06/2023 Obesity (BMI 30.0-34.9) (ICD-10 - E66.9) [...] No change in his medications was made. 09/24/2024 Obesity (BMI 30.0-34.9) (ICD-10 - E66.9) [...] near future for follow-up and lifestyle modification. 02/04/2024 Obesity (BMI 30.0-34.9) (ICD-10 - E66.9) [...] and sodium combined with regular exercise. 12/06/2023 Essential hypertension (ICD-10 - I10) His [...] in his regimen was needed today. 09/24/2024 Mixed hyperlipidemia (ICD-10 - E78.2) His lipids are currently well controlled and no change in his regimen as necessary. 12/06/2023 History of depressio n (ICD-10 - [...] the medication is benefiting him significantly. 09/24/2024 BPH (benign prostati c hyperplasia) (ICD-10 - N40.0) He rises from sleep once or twice a night to urinate. We have discussed lifestyle modifications he could make to reduce nocturia. 12/06/2023 BPH (benign prostati c hyperplasia) (ICD-10 [...] as a way to reduce nocturnal urinating. 09/24/2024 Prediabetes (ICD-10 - R73.03) His fasting glucose once again is elevated at 124. His weight is stable. His hemoglobin A1c is 6.6. I have ordered a hemoglobin additional labs prior to his next visit. 12/06/2023 Vitamin D deficiency (ICD-10 - E55.9) [...] if indicated the diagnosis will be upgraded. 09/24/2024 History of depressio n (ICD-10 - Z86.59) His medication will be increased as needed. He is moderately depressed but stable and says the medication is benefiting him significantly. 04/06/2024 Prediabetes (ICD-10 - R73.03) His blood [...] Order Date PROFILE, FASTING (COMPREHENSIVE METABOLI C) 12/06/2023 PROFILE, FASTING (COMPREHENSIVE METABOLI C) 06/14/2021 PROFILE, FASTING (COMPREHENSIVE METABOLI C) 05/20/2023 PROFILE, FASTING (COMPREHENSIVE METABOLI C) 05/14/2022 PROFILE, FASTING (COMPREHENSIVE METABOLI C) 09/24/2024 PROFILE, FASTING (COMPREHENSIVE METABOLI C) 04/06/2024 PROFILE, FASTING (COMPREHENSIVE METABOLI C) 02/06/2021 PROFILE, FASTING (COMPREHENSIVE METABOLI C) 11/08/2020 PROFILE, FASTING (COMPREHENSIVE METABOLI C) 09/13/2021 PROFILE, RANDOM (COMPREHENSIVE METABOLIC ) 01/15/2022 LIPID PANEL 05/20/2023 LIPID PANEL 01/15/2022 LIPID PANEL 02/06/2021 LIPID PANEL 11/08/2020 PSA, TOTAL 09/13/2021 PSA, TOTAL 11/08/2020 PSA, TOTAL 05/14/2022 PSA, TOTAL 09/24/2024 PSA, TOTAL 05/20/2023 CBC w DIFF 02/06/2021 CBC w DIFF 09/13/2021 CBC w DIFF 11/08/2020 CBC w DIFF 06/14/2021 CBC w DIFF 05/14/2022 CBC w DIFF 05/20/2023 CBC w DIFF 01/15/2022 VITAMIN D 25-OH TOTAL 01/15/2022 VITAMIN D 25-OH TOTAL 11/08/2020 CBC WITH AUTO DIFF 12/06/2023 CBC WITH AUTO DIFF 09/24/2024 CBC WITH AUTO DIFF 04/06/2024 Lipid Panel 09/13/2021 Lipid Panel 12/06/2023 Lipid Panel 06/14/2021 Lipid Panel 05/14/2022 Lipid Panel 04/06/2024 Vitamin D 25-OH Total 05/14/2022 Hemoglobin A1c 04/06/2024 Next Appt Details Provider Name:Elías Rangel, 12/07/2024 02:00:00 PM, [address] [place] [address] , YANI Ana, [place], [address], Insurance Providers Payer Name Payer Address Payer Phone Subscriber Number Group Number Insured Name Patient Relationship to Insured Coverage Start Date Coverage End Date MEDICARE NGS [address] [facility] [address] [id number] KORY ELI Self - patient is the insured [facility] [address] [place], [place] [id number] [id number] SPARKS Self - patient is the insured Medical (General) History Medical History History ICD Code GERD (gastroesophageal reflux disease) K 21.9 Hypertension I10 Depression F32.9 hyperlipidemia allergic to penicillin obesity hemorrhoids hearing loss tendinitis PTSD Surgical History Surgery Date(Month/Year) No history Hospitalization History Reason Date(Month/Year) diverticulitis [facility] 02/2020 No history
--- OUTSIDE RECORDS SUMMARY | 2024-12-02 07:41 | XMS_ITS ---
Author Organization Elías Rangel III, MD Address [address] [place] [address] [place] [address] Care Team Providers Care Rolling Mill Operator Name Role Phone Elías Rangel Primary Care [...] Date Provider Diagnosis Elías Rangel III, MD [address] [place] [address] [place] [address] 09/16/2024 Elías Rangel Obesity (BMI 30.0-34.9) E66.9 [...] Details Provider Name:Elías Rangel, 12/07/2024 02:00:00 PM, [address] [place] [address] [place], [address], Progress Notes * KORY JUSTICE DDOB: [birth year] (79 yo M)Acc No.[id number]:09/16/2024 Patient:?KORY JUSTICE :1945???Age:79 Y???Sex:Male Address: [address], [place], [address] * Refills? Refill hydroCHLOROthiazide Tablet, 25 MG, Orally, 90, 1 tablet in the morning, Once a day, 90 days, Refills=3 * true * Date:? Generated for Wilfredo ying/Axel/eTransmitting on:?12/02/2024 07:40 AM EST
--- OUTSIDE RECORDS SUMMARY | 2024-12-02 07:41 | XMS_ITS ---
Author Organization Elías Rangel III, MD Address [address] [place] [address] Care Team Providers Care Hospital Laboratory Technician Name Role Phone Elías Rangel Primary Care Provider [phone] Allergies Allergen (clinical drug ingredient) Drug/Non Drug [...] Date Provider Diagnosis Elías Rangel III, MD [address] [place] [address] [place] [address] 07/20/2024 Elías Rangel Obesity (BMI 30.0-34 .9) [...] a day Vitamin D 50 MCG (1999 DE) 1 capsule Orally Once a day Next Appt Details Follow Up: 2 Months, End august, Reason: OV, Check fasting blood sugar and weight Provider Name:Elías Rangel, 12/07/2024 02:00:00 PM, [address] [place] [address], [address], [phone], Progress Notes * KORY ELI DDOB: [birth year] (79 yo M)Acc No.[id number]:07/20/2024 Progress Notes Patient:?KAZKENNETHBRIDGER KORY Hodgson Provider:?Elías Rangel MD :1945???Age:79 Y???Sex:Male Hossein e:07/20/2024 Address:[address] [place], [place] [phone] Subjective: * Chief Complaints: * ???ObesityHypertensionHyperl ipidemiaPrediabetesBenign [...] has been seeing a doctor at the [facility], where he had some blood work done. [...] History:?No history * Hospitalization/Major Diagno stic Procedure:?diverticulitis [facility] 02/2020No history * Family History:?Father: dece [...] Tobacco Non-User?Aggressive non-smoker ???He was born in [facility]. He worked in the [employer] in [facility]. 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 He has 2 sons Hugo [place]. He is . He lives in [facility]. He is a . His blood type [...] HR:60, Temp:97.2, Wt-k.17. * ???Past Orders: Lab:[facility]. Koffie l Fast * Collection Date 07/14/2024 [...] AM)?ValueReference Range?Hemoglobin A1c %6.6H<6.0 - %?Estimated Average [id number]- mg/dL * Lab:Complete Blood Count Aut o [...] Rangel MD Date:?07/01 Generated for Printi ng/Axel/eTransmitting on:?12/02/2024 07:40 AM EST History and Physical [...]
[2024-12-02 10:23] LABS: MANUAL DIFF FLAG NO
[2024-12-02 10:38] LABS: Basophils Percent Auto 0.4 % (0-2); Eosinophils Absolute Auto 0.1 X10*3/uL (0.0-0.4); Eosinophils Percent Auto 1.7 % (0-4); Hematocrit 41.2 % (42.0-52.0); Hemoglobin 14.1 g/dl (14.0-18.0); Imm Gran Abs Auto 0.04 X10*3/uL (0.00-0.03); Imm Gran Pct Auto 0.5 % (0.0-0.4); Lymphocytes Absolute Auto 2.4 X10*3/uL (1.2-4.9); Mean Corpuscular HGB Conc 34.2 g/dl (31.0-36.0); Mean Corpuscular Hemoglobin 30.5 pg (27.0-33.0); Mean Corpuscular Volume 89.2 fL (80.0-98.0); Mean Platelet Volume 10.9 fL (9.4-12.4); Monocytes Absolute Auto 0.7 X10*3/uL (0.1-1.2); Monocytes Percent Auto 8.5 % (2-11); Neutrophils Absolute Auto 4.6 x10*3/uL (2.0-8.3); Neutrophils Percent Auto 58.9 % (45-73); Platelet Count 239 X10*3/uL (160-400); Red Blood Count 4.62 X10*6/uL (4.60-5.80); Red Cell Distribution Width 12.1 % (11.0-16.0); White Blood Count 7.8 X10*3/uL (4.8-10.8)
[2024-12-02 10:50] LABS: Estimated Average Glucose 137 mg/dL; Hemoglobin A1C 168.4413 umol/L; Hemoglobin A1c % 6.4 % (<6.0); Total Hemoglobin (HGBA1C) 3647.2633 umol/L
[2024-12-02 11:29] LABS: Alanine Aminotransferase 28 U/L (0-40); Albumin Level 3.8 g/dL (3.5-5.0); Alkaline Phosphatase 53 U/L (39-117); Anion Gap 11 (12-20); Aspartate Amino Transferase 25 U/L (5-37); Bilirubin Total 0.6 mg/dL (0.0-1.0); Blood Urea Nitrogen 21 mg/dL (9-16); Calcium 8.9 mg/dL (8.4-10.2); Carbon Dioxide 27 mmol/L (22-29); Chloride 104 mmol/L (96-108); Cholesterol 108 mg/dL (<200); Estimated Glomerular Filt Rate > 60; Glucose Fasting 122 mg/dL (60-99); HDL Cholesterol 23 mg/dL (>40); LDL Cholesterol Calculated 64 mg/dL (<100); Potassium 3.6 mmol/L (3.3-5.1); Sodium 138 mmol/L (135-145); Triglycerides 108 mg/dL (<150)
== END 2024-12-02 07:38 | disposition home or self-care (01) ==
LOC: HO.10HDL 07:37
PROVIDERS: Visit Provider Internal Medicine Medical Oncology
DX: E66.9 Obesity, unspecified (principal); E78.2 Mixed hyperlipidemia; N40.0 Benign prostatic hyperplasia without lower urinary tract symptoms; R73.03 Prediabetes
CPT/HCPCS: 36415; 80053; 80061; 83036; 85025

== ENCOUNTER 2025-01-27 07:36 | Outpatient (REF) | payer MEDICARE, SELFPAY ==
--- OUTSIDE RECORDS SUMMARY | 2025-01-27 07:39 | XMS_ITS | Continuity of Care Document ---
Author Name [facility] Organization [facility] Care Team Providers Care Pest Control Chemical Technician Name Role Phone [facility] Unavailable Unavailable Problems Combined list of problems from Department of Defense and Veterans Affairs facilities. It does not include entries that were removed or entered in error. Problem Status Onset Date Problem Type Date of Resolution Comments Source Anxiety ([facility] [id number]) [facility] Chronic Post-Traumatic Stress Disorder ([facility] [id number]) Active Condition [facility] Exposure to potentially hazardous substance Active Condition [facility] GERD - Gastro-Esophageal Reflux Disease ([facility] [id number]) Active Condition [facility] HTN - Hypertension ([facility] [id number]) Active Condition [facility] Hypercholesterolemia ([facility] [id number]) Active Condition [facility] [...] ONCE DAILY ORAL ACTIVE [facility] ED[facility] 2020 [facility] ASPIRIN 81MG TAB,EC TAKE ONE TABLET BY MOUTH ONCE DAILY [facility] ATORVASTATI N CA 20MG TAB TAKE ONE-HALF TABLET BY MOUTH THREE TIMES A WEEK ORAL ACTIVE [facility] EDGARH 2020 [facility] [place] HYDROCHLORO THIAZIDE 25MG TAB TAKE ONE TABLET BY MOUTH ONCE DAILY ORAL ACTIVE [facility] EDGARH 2020 [facility] [place] LISINOPRIL 40MG TAB TAKE ONE TABLET BY MOUTH ONCE DAILY ORAL ACTIVE [facility] 2020 [facility] METOPROLOL SUCCINATE 25MG TAB,SA TAKE THREE TABLETS BY MOUTH ONCE DAILY ORAL ACTIVE [facility] EDGARH 2020 [facility] [place] OMEPRAZOLE 20MG CAP,EC TAKE 1 CAPSULE BY MOUTH TWICE DAILY ORAL ACTIVE [facility] 2020 [facility] PROBIOTIC COMBINATION CAP/TAB TAKE 1 CAPSULE BY MOUTH ONCE DAILY ORAL ACTIVE [facility]IOMA EDGARH 2020 [facility] [place] VITAMIN D3 (CHOLECALCI FEROL) TAB TAKE BY MOUTH ONCE DAILY ORAL ACTIVE [facility] 2020 [facility] Allergies, Adverse Reactions, Alerts Combined list of allergies from Department of Defense and Veterans Affairs facilities. It does not include entries that were removed or entered in error. Substance Category Reaction Severity Reaction type Status Date Reported Comments Source PENICILLIN Propensity to adverse reactions to drug (finding) Dyspnea [facility] [place] [facility] Immunizations Combined list of available immunizations from the Department of Defense and Veterans Affairs facilities. Immunization Series Date Given Administered By Site Reaction Lot Number CVX Code Drug Valve Steamer Status Comments Source COVID-19 (Silver Curve), VECTOR-NR, [id number], PF, 0.5 ML 1 2020 212 complet ed [facility] Results Combined list of [...] May 06, 2024 03:59 PM Reporting Lab: [facility] [place] [address] [address] Performing Lab: [facility] [place] [facility] [address] [facility] [address] [facility] CBC ERYTHROCYTE S [#/VOLUME] IN BLOOD BY AUTOMATED COUNT 4.73 10*6/u L 4.23 - 5.66 06/10 Specimen Type: BLOOD No comment entered. Ordering Provider: MARGO IBARRA Report Released Date/Time: May 06, 2024 03:59 PM Reporting Lab: [facility] [place] [facility] [address] [facility] [address] Performing Lab: [facility] [place] [address] [address] [facility] CBC HEMOGLOBIN [MASS/VOLUM E] IN BLOOD 14.1 g/dL 12.8 - 17 06/10 Specimen Type: BLOOD No comment entered. Ordering Provider: MARGO IBARRA Report Released Date/Time: May 06, 2024 03:59 PM Reporting Lab: [facility] [place] [facility] [address] [facility] [address] Performing Lab: [facility] [place] [address] [address] [facility] [place] [facility] CBC HEMATOCRIT [VOLUME FRACTION] OF BLOOD BY AUTOMATED COUNT 40.8 39.2 - 50.4 06/10 Specimen Type: BLOOD No comment entered. Ordering Provider: MARGO IBARRA Report Released Date/Time: May 06, 2024 03:59 PM Reporting Lab: [facility] [place] [address] [place] [address] Performing Lab: [facility] [place] [facility] [address] [facility] [address] [facility] CBC MCV [ENTITIC VOLUME] BY AUTOMATED COUNT 86.3 fL 82 - 99 06/10 Specimen Type: BLOOD No comment entered. Ordering Provider: MARGO IBARRA Report Released Date/Time: May 06, 2024 03:59 PM Reporting Lab: [facility] [address] [facility] [address] Performing Lab: [facility] [place] [facility] [address] [facility] [address] [facility] [place] [facility] CBC MCHC [MASS/VOLUM E] BY AUTOMATED COUNT 34.6 g/dL 30.8 - 35.1 06/10 Specimen Type: BLOOD No comment entered. Ordering Provider: MARGO IBARRA Report Released Date/Time: May 06, 2024 03:59 PM Reporting Lab: [facility] [place] [facility] [address] [facility] [address] Performing Lab: [facility] [place] [facility] [address] [facility] [address] [facility] [place] [facility] CBC PLATELETS [#/VOLUME] IN BLOOD BY AUTOMATED COUNT 293 10*3/u L 140 - 360 06/10 Specimen Type: BLOOD No comment entered. Ordering Provider: MARGO IBARRA Report Released Date/Time: May 06, 2024 03:59 PM Reporting Lab: [facility] [place] [facility] [address] [facility] [address] Performing Lab: [facility] [place] [facility] [address] [facility] [address] [facility] [place] [facility] CBC ERYTHROCYTE DISTRIBUTIO N WIDTH [RATIO] BY AUTOMATED COUNT 13.1 12.0 - 16.0 06/10 Specimen Type: BLOOD No comment entered. Ordering Provider: MARGO IBARRA Report Released Date/Time: May 06, 2024 03:59 PM Reporting Lab: [facility] [place] [facility] [address] [facility] [address] Performing Lab: [facility]ITALRL W[facility]N [facility]ITALUSETS [facility] [address] [facility] [address] [facility] W[facility]USE [facility] CBC MCH [ENTITIC MASS] BY AUTOMATED COUNT 29.8 pg 26.2 - 32.6 06/10 Specimen Type: BLOOD No comment entered. Ordering Provider: MARGO IBARRA Report Released Date/Time: May 06, 2024 03:59 PM Reporting Lab: [facility]OSPITALRNORTH AL[facility] CENTERTRN [facility]PITALUSEBATAV[facility] [address] [facility] [address] Performing Lab: [facility] HOSPITALRMARY [facility] CENTERN [facility]OSPITALUSEBATAVIA [facility] [address] [facility] [address] [facility]ITALUSE [facility] BASIC METABOLIC PANEL (non-fast ing) UREA NITROGEN [MASS/VOLUM E] IN SERUM OR PLASMA 18 mg/dL 7 - 25 06/10 Specimen Type: SERUM No comment entered. Ordering Provider: MARGO IBARRA Report Released Date/Time: May 06, 2024 03:59 PM Reporting Lab: [facility] HOSPITALRMARY [facility] CENTERN [facility]OSPITALUSEBATAV[facility] [address] [facility] [address] Performing Lab: [facility]OSPITALRNORTH AL[facility]AMA MEDICAL CENTERTRN [facility]OSPITALUSEBATAV[facility] [address] [facility] [address] [facility]ERN [facility]OSPITALUSE [facility] BASIC METABOLIC PANEL (non-fast ing) GLUCOSE [MASS/VOLUM E] IN SERUM OR PLASMA 141 mg/dL 65 - 100 06/10 H Specimen Type: SERUM No comment entered. Ordering Provider: MARGO IBARRA Report Released Date/Time: May 06, 2024 03:59 PM Reporting Lab: [facility] HOSPITALRNORTH ALABAMA MEDICAL CENTERTRN [facility]OSPITALUSEBATAV[facility] [address] [facility] [address] Performing Lab: [facility]OSPITALR WSTRN [facility]OSPITALUSEBATAV[facility] [address] [facility] [address] [facility] HOSPITALRMARY [facility] CENTERN [facility] HOSPITALUSE [facility] BASIC METABOLIC PANEL (non-fast ing) SODIUM [MOLES/VOLU ME] IN SERUM OR PLASMA 132 mmol/L 135 - 145 06/10 L Specimen Type: SERUM No comment entered. Ordering Provider: MARGO IBARRA Report Released Date/Time: May 06, 2024 03:59 PM Reporting Lab: [facility] [place] [facility] [address] [facility] [address] Performing Lab: [facility] HOSPITALUSETS [facility] [address] [facility] [address] [facility]OSPITALRL WSTRN [facility]OSPITALUSE [facility] BASIC METABOLIC PANEL (non-fast ing) POTASSIUM [MOLES/VOLU ME] IN SERUM OR PLASMA 4.2 mmol/L 3.5 - 5.0 06/10 Specimen Type: SERUM No comment entered. Ordering Provider: MARGO IBARRA Report Released Date/Time: May 06, 2024 03:59 PM Reporting Lab: [facility] HOSPITALRL WSTRN [facility]OSPITALUSETS [address] [address] Performing Lab: [facility] HOSPITALRL WSTRN [facility]PITALUSE[address] [address] [facility] HOSPITALRL TRN [facility]OSPITALUSE [facility] BASIC METABOLIC PANEL (non-fast ing) CHLORIDE [MOLES/VOLU ME] IN SERUM OR PLASMA 97 mmol/L 100 - 110 06/10 L Specimen Type: SERUM No comment entered. Ordering Provider: MARGO IBARRA Report Released Date/Time: May 06, 2024 03:59 PM Reporting Lab: [facility] HOSPITALRL WSTRN [facility] HOSPITALUSETS [address] [address] Performing Lab: [facility]OSPITALUSETS [address] [address] [facility] HOSPITALRL TRN [facility]OSPITALUSE [facility] BASIC METABOLIC PANEL (non-fast ing) CARBON DIOXIDE, TOTAL [MOLES/VOLU ME] IN SERUM OR PLASMA 24 meq/L 20 - 30 06/10 Specimen Type: SERUM No comment entered. Ordering Provider: MARGO IBARRA Report Released Date/Time: May 06, 2024 03:59 PM Reporting Lab: [facility] HOSPITALRL WSTRN [facility] HOSPITALUSETS [address] [address] Performing Lab: [facility] HOSPITALUSETS [address] [address] [facility] BASIC METABOLIC PANEL (non-fast ing) CREATININE [MASS/VOLUM E] IN SERUM OR PLASMA 1.17 mg/dL 0.50 - 1.40 06/10 Specimen Type: SERUM No comment entered. Ordering Provider: MARGO IBARRA Report Released Date/Time: May 06, 2024 03:59 PM Reporting Lab: [facility] HOSPITALRMARY [facility] CENTERN [facility]OSPITALUSEBATAV[facility] [address] [facility] [address] Performing Lab: [facility]OSPITALRNORTH [facility] CENTERTRN [facility]OSPITALUSEBATAV[facility] [address] [facility] [address] [facility]ERN [facility]OSPITALUSE [facility] BASIC METABOLIC PANEL (non-fast ing) GLOMERULAR FILTRATION RATE/1.73 SQ M.PREDICTED [VOLUME RATE/AREA] IN SERUM, PLASMA OR BLOOD BY CREATININE- BASED FORMULA (CKD-EPI 2020) 64 mL/min 60 06/10 Specimen Type: SERUM No comment entered. Ordering Provider: MARGO IBARRA Report Released Date/Time: May 06, 2024 03:59 PM Reporting Lab: [facility] HOSPITALRMARY [facility] CENTERN [facility]OSPITALUSEBATAV[facility] [address] [facility] [address] Performing Lab: [facility] [address] [facility] [phone] [place] [address] LIPID PANEL, NON FASTING CHOLESTEROL [MASS/VOLUM E] IN SERUM OR PLASMA 171 mg/dL 06/10 Specimen Type: SERUM No comment entered. Ordering Provider: MARGO IBARRA Report Released Date/Time: May 06, 2024 03:59 PM Reporting Lab: [facility] HOSPITALRMARY [facility] CENTERN [facility]OSPITALUSEBATAV[facility] [address] [facility] [address] Performing Lab: [facility] HOSPITALRMARY [facility] CENTERN [facility]OSPITALUSEBATAV[facility] [address] [facility] [address] [facility] LIPID PANEL, NON FASTING TRIGLYCERID E [MASS/VOLUM E] IN SERUM OR PLASMA 144 mg/dL 0 - 150 06/10 Specimen Type: SERUM No comment entered. Ordering Provider: MARGO IBARRA Report Released Date/Time: May 06, 2024 03:59 PM Reporting Lab: [facility] [place] [facility] [address] [facility] [address] Performing Lab: [facility]OSPITALUSETS [facility] [address] [facility] [address] [facility]OSPITALRL WSTRN [facility]OSPITALUSE [facility] LIPID PANEL, NON FASTING CHOLESTEROL IN LDL [MASS/VOLUM E] IN SERUM OR PLASMA BY CALCULATION 108 mg/dL 0 - 129 06/10 Specimen Type: SERUM No comment entered. Ordering Provider: MARGO IBARRA Report Released Date/Time: May 06, 2024 03:59 PM Reporting Lab: [facility] HOSPITALRL WSTRN [facility]OSPITALUSETS [facility] [address] [facility] [address] Performing Lab: [facility]OSPITALRL WSTRN [facility]OSPITALUSETS [facility] [address] [facility] [address] [facility]OSPITALRNORTH AL[facility] MEDICAL CENTERTRN [facility]OSPITALUSE [facility] LIPID PANEL, NON FASTING CHOLESTEROL .TOTAL/CHOL ESTEROL IN HDL [MASS RATIO] IN SERUM OR PLASMA 5.0 06/10 Specimen Type: SERUM No comment entered. Ordering Provider: MARGO IBARRA Report Released Date/Time: May 06, 2024 03:59 PM Reporting Lab: [facility] HOSPITALRL TRN [facility] HOSPITALUSETS [facility] [address] [facility] [address] Performing Lab: [facility]OSPITALUSETS [facility] [address] [facility] [address] [facility]PITALRL [facility]ERN [facility]OSPITALUSE [facility] LIPID PANEL, NON FASTING CHOLESTEROL IN HDL [MASS/VOLUM E] IN SERUM OR PLASMA 34 mg/dL 40 - 60 06/10 L Specimen Type: SERUM No comment entered. Ordering Provider: MARGO IBARRA Report Released Date/Time: May 06, 2024 03:59 PM Reporting Lab: [facility]OSPITALRL [place] [place] [facility] [address] [facility] [address] Performing Lab: [facility]ETS [facility] [address] [facility] [address] [facility]OSPITALRL TRN [facility]OSPITALCHUSE [facility] LIVER FUNCTION PROTEIN [MASS/VOLUM E] IN SERUM OR PLASMA 7.1 g/dL 6.0 - 8.3 06/10 Specimen Type: SERUM No comment entered. Ordering Provider: MARGO IBARRA Report Released Date/Time: May 06, 2024 03:59 PM Reporting Lab: [facility] [place] [facility] [address] [facility] [address] Performing Lab: [facility] [place] [facility] [address] [facility] [address] [facility] [place] [facility] LIVER FUNCTION ALBUMIN [MASS/VOLUM E] IN SERUM OR PLASMA 3.9 g/dL 3.5 - 5.0 06/10 Specimen Type: SERUM No comment entered. Ordering Provider: MARGO IBARRA Report Released Date/Time: May 06, 2024 03:59 PM Reporting Lab: [facility] [place] [facility] [address] [facility] [address] Performing Lab: [facility] [place] [address] [address] [facility] [place] [facility] LIVER FUNCTION ALKALINE PHOSPHATASE [ENZYMATIC ACTIVITY/VO LUME] IN SERUM OR PLASMA 53 U/L 40 - 150 06/10 Specimen Type: SERUM No comment entered. Ordering Provider: MARGO IBARRA Report Released Date/Time: May 06, 2024 03:59 PM Reporting Lab: [facility] [place] [facility] [address] [facility] [address] Performing Lab: [facility] [place] [facility] [address] [facility] [address] [facility] [place] [facility] LIVER FUNCTION ASPARTATE AMINOTRANSF ERASE [ENZYMATIC ACTIVITY/VO LUME] IN SERUM OR PLASMA 19 U/L 5 - 34 06/10 Specimen Type: SERUM No comment entered. Ordering Provider: MARGO IBARRA Report Released Date/Time: May 06, 2024 03:59 PM Reporting Lab: [facility] [place] [facility] [address] [facility] [address] Performing Lab: [facility] [place] [facility] [address] [facility] [address] [facility] [place] [facility] LIVER FUNCTION ALANINE AMINOTRANSF ERASE [ENZYMATIC ACTIVITY/VO LUME] IN SERUM OR PLASMA 29 U/L 06/10 Specimen Type: SERUM No comment entered. Ordering Provider: MARGO IBARRA Report Released Date/Time: May 06, 2024 03:59 PM Reporting Lab: [facility] [place] [facility] [address] [facility] [address] Performing Lab: [facility] [place] [facility] [address] [facility] [address] [facility] [place] [facility] LIVER FUNCTION BILIRUBIN.T OTAL [MASS/VOLUM E] IN SERUM OR PLASMA 0.7 mg/dL 0.2 - 1.2 06/10 Specimen Type: SERUM No comment entered. Ordering Provider: MARGO IBARRA Report Released Date/Time: May 06, 2024 03:59 PM Reporting Lab: [facility] [place] [facility] [address] [facility] [address] Performing Lab: [facility] [place] [facility] [address] [facility] [address] [facility] [place] [facility] Vital Signs Combined list of inpatient and outpatient Vital Signs from Department of Defense and Veterans Affairs, ranging from 12 months to all on record, depending upon the facility. Vital Sign Value Date Comments Source SYSTOLIC BLOOD PRESSURE 166 06/15/20 24 15:19:42 [facility] [place] [facility] DIASTOLIC BLOOD PRESSURE 81 024 15:19:42 [facility] [place] [facility] PULSE OXIMETRY 94 06/15/2024 15:19:42 [facility] [place] [facility] WEIGHT 211 06/15/2024 15:19:42 [facility] [place] BMI 36 kg/m2 06/15/2024 15:19:42 [facility] PAIN 0 06/15/2024 15:19:42 [facility] [place] HEIGHT 64 06/15/2024 15:19:42 [facility] [place] [facility] TEMPERATURE 98.1 06/15/2024 15:19:42 [facility] [place] [facility] PULSE 63 06/15/2024 15:19:42 [facility] [place] [facility] RESPIRATION 20 06/15/2024 15:19:42 [facility] [place] [facility] Encounters Combined list of: 1) Encounters from Department of Veterans Affairs facilities going backup to the last 18 months, not all VA inpatient encounters are included; 2) Encounters from the Department of Defense facilities going backup to 280 months. Location Location Details Encounter Type Encounter Number Reason For Visit Attending Provider ADM Date DC Date Status Disposition Source [facility] [place] [facility] OFFICE O/P EST LOW 20 MIN 34923-4.63 [id number] Diagnos is: ICD-10- CM I10 Essenti al (primar y) hyperte Lucas Byrne 06/15 [facility] Social History Combined list of available smoking, tobacco, and other social history from Department of Defense and Veterans Affairs facilities. Social History Type Response Date Comment Sourc e Tobacco smoking status NHIS VA-TOBACCO NEVER USED 06/15/2024 [facility] [place] [place] [facility] History of tobacco use VA-TOBACCO NEVER USED 05/16/2023 [facility] [place] [place] [facility] History of tobacco use VA-TOBACCO NEVER USED 05/17/2022 [facility] [place] [place] [facility] History of tobacco use VA-TOBACCO NEVER USED 05/18/2021 [facility] [place] [place] [facility] History of tobacco use VA-TOBACCO NEVER USED 05/02/2021 [facility] [place] [place] [facility] Plan of Care List of future care activities from Department of Veterans Affairs facilities. Additional future care activities may be listed in the Assessment and Plan section. Date/Time Care Activity Care Activity Detail Facili ty 06/14/2025 AMBULATORY - MEDICINE AMBULATORY - MEDICI NE [facility] [place] [facility]
[2025-01-27 09:46] LABS: MANUAL DIFF FLAG NO
[2025-01-27 10:09] LABS: Basophils Percent Auto 0.4 % (0-2); Eosinophils Absolute Auto 0.2 X10*3/uL (0.0-0.4); Eosinophils Percent Auto 2.3 % (0-4); Hematocrit 41.4 % (42.0-52.0); Hemoglobin 13.6 g/dl (14.0-18.0); Imm Gran Abs Auto 0.06 X10*3/uL (0.00-0.03); Imm Gran Pct Auto 0.8 % (0.0-0.4); Lymphocytes Absolute Auto 2.4 X10*3/uL (1.2-4.9); Lymphocytes Percent Auto 30.8 % (20-40); Mean Corpuscular HGB Conc 32.9 g/dl (31.0-36.0); Mean Corpuscular Hemoglobin 28.5 pg (27.0-33.0); Mean Corpuscular Volume 86.8 fL (80.0-98.0); Mean Platelet Volume 11.3 fL (9.4-12.4); Monocytes Absolute Auto 0.6 X10*3/uL (0.1-1.2); Neutrophils Absolute Auto 4.5 x10*3/uL (2.0-8.3); Neutrophils Percent Auto 57.7 % (45-73); Platelet Count 269 X10*3/uL (160-400); Red Blood Count 4.77 X10*6/uL (4.60-5.80); Red Cell Distribution Width 13.2 % (11.0-16.0); White Blood Count 7.8 X10*3/uL (4.8-10.8)
[2025-01-27 10:17] LABS: Alanine Aminotransferase 36 U/L (0-40); Albumin Level 3.9 g/dL (3.5-5.0); Alkaline Phosphatase 58 U/L (39-117); Anion Gap 12 (12-20); Aspartate Amino Transferase 25 U/L (5-37); Bilirubin Total 0.5 mg/dL (0.0-1.0); Blood Urea Nitrogen 23 mg/dL (9-16); Calcium 9.2 mg/dL (8.4-10.2); Carbon Dioxide 26 mmol/L (22-29); Chloride 102 mmol/L (96-108); Estimated Glomerular Filt Rate > 60; Glucose Random 139 mg/dL (60-115); Potassium 3.6 mmol/L (3.3-5.1); Sodium 136 mmol/L (135-145); Total Protein 6.7 g/dL (6.5-8.0)
== END 2025-01-27 07:37 | disposition home or self-care (01) ==
LOC: HO.10HDL 07:36
PROVIDERS: Visit Provider Internal Medicine Medical Oncology
DX: E66.9 Obesity, unspecified (principal); E78.2 Mixed hyperlipidemia
CPT/HCPCS: 36415; 80053; 85025

== ENCOUNTER 2025-06-22 09:01 | Outpatient (REF) | payer MEDICARE, SELFPAY ==
--- OUTSIDE RECORDS SUMMARY | 2024-12-07 10:00 | XMS_ITS ---
Author Organization Elías Rangel III, MD Address [address] [place] [address] Care Team Providers Care Typewriter Ribbon Winder Name Role Phone Dr. Elías Rangel III Primary Care Provider Allergies Allergen (clinical drug ingredient) Drug/Non Drug Allergy documented on EMR Reaction Allergy Type Onset Date Status penicillin G Penicillin G Sodium Unknown Drug Allergy Active REASON FOR VISIT Annual Exam Medications Medication SIG (Take, Route, Frequency, Duration) Notes Start Date End Date Status Anusol-HC 25 MG 1 suppository Rectal Three times a day Active Vitamin D 50 MCG (1999) 1 capsule Ora lly Once a day Active Metoprolol Succinate ER 50 MG 1.5 tablet s Orally Once a day 11/08/2020 Active Omeprazole 20 MG 1 tablet 30 minutes before morning meal Orally Once a day Active Aspir-Low 81 MG 1 tablet Orally Once a day Active hydroCHLOROthiazide 25 MG 1 tablet in th e morning Orally Once a day Active Amitriptyline HCl 25 MG TAKE 1 TABLET BY MOUTH AT BEDTIME Active Lisinopril 40 MG Take 1 tablet by martín th once daily Active Atorvastatin Calcium 10 MG TAKE 1 TABLET BY MOUTH ONCE EVERY SATURDAY, SATURDAY AND SATURDAY FOR 90 DAYS Active Social History Tobacco Use: Social History Observation Description Date Details (start date - stop date) Never Smoker NA - NA Sex Assigned At : Social History Observation Description Sex Assigned At Male Tobacco Control (Standard) Question Answer Notes Tobacco use: Nonsmoker Additional Findings: Tobacco non-user Aggressive nonsmoker AUDIT-C (Standard) Question Answer Notes Did you have a drink containing alcohol in the p ast year? No Points 0 Interpretation Negative Vital Signs Temperature 97.9 degrees Fahrenheit 12/08/19 25 Blood pressure systolic 140 mm Hg 12/08/19 25 Blood pressure diastolic 70 mm Hg 025 Heart Rate 66 /min 12/07/2024 Height 64 in 12/07/2024 Weight 201 lbs 12/07/2024 BMI 34.5 kg/m2 12/07/2024 Encounters Encounter Location Date Provider Diagnosis Elías Rangel III, MD [address] [place] [address] [address] [place], [place] [id number] 12/07/2024 Elías Rangel Obesity (BMI 30.0-34 .9) E66.9 ; Mixed hyperlipidemia E78.2 ; Essential hypertension I10 ; BPH (benign prostatic hyperplasia) N40.0 ; History of depression Z86.59 and Prediabetes R73.03 Assessments Encounter Date Diagnosis (ICD Code) Assessment Notes Treat ment Notes Treatment Clinical Notes 12/07/2024 Obesity (BMI 30.0-34.9) (ICD-10 - E66.9) He continues his efforts at weight loss. His weight is stable at 201 pounds with a body mass index of 34.5. We reviewed his weight loss strategy and detail. 12/07/2024 Mixed hyperlipidemia (ICD-10 - E78.2) His lipids are currently stable and no change in his regimen was needed. 12/07/2024 Essential hypertension (ICD-10 - I10) His blood pressure is higher than optimal 140/70. We have discussed aggressive weight loss and sodium restriction. He did not wish to take more medication att this time. He'll be seen back in the near future for follow-up and lifestyle modification.He is considering whether he wants to take oral medication. He is coming back to the office in the future for another blood pressure. 12/07/2024 BPH (benign prostati c hyperplasia) (ICD-10 - N40.0) He rises from sleep once or twice a night to urinate. We have discussed lifestyle modifications he could make to reduce nocturia. 12/07/2024 History of depressio n (ICD-10 - Z86.59) His medication will be increased as needed. He is moderately depressed but stable and says the medication is benefiting him significantly. 12/07/2024 Prediabetes (ICD-10 - R73.03) His fasting glucose once again is elevated at 122. His weight is stable. His hemoglobin A1c is 6.4. I have ordered a hemoglobin additional labs prior to his next visit. Plan Of Treatment Medication Medication Name Sig Start Date Stop Date Notes Anusol-HC 25 MG 1 suppository Rectal Three times a day Vitamin D 50 MCG (1999) 1 capsule Orally Once a day Metoprolol Succinate ER 50 MG 1.5 tablet s Orally Once a day 11/08/2020 Omeprazole 20 MG 1 tablet 30 minutes before morning meal Orally Once a day Aspir-Low 81 MG 1 tablet Orally Once a day hydroCHLOROthiazide 25 MG 1 tablet in e morning Orally Once a day Amitriptyline HCl 25 MG TAKE 1 TABLET BY MOUTH AT BEDTIME Lisinopril 40 MG Take 1 tablet by martín once daily Atorvastatin Calcium 10 MG TAKE 1 TABLET BY MOUTH ONCE EVERY SATURDAY, SATURDAY AND SATURDAY FOR 90 DAYS Pending Test Test Name Order Date PROFILE, FASTING (COMPREHENSIVE METABOLI C) 12/07/2024 CBC w DIFF 12/07/2024 Lipid Panel 12/07/2024 Next Appt Details Follow Up: 4 Months, Reason: OV Provider Name:Elías Rangel , 07/02/2025 10:30:00 AM, [address] [place] [address] Y[address] [place]ENDES, [place], [id number], Provider Name:Elías Rangel , 12/08/2025 02:00:00 PM, [address] [place] [address] YANI MENDES, [place], [phone], Progress Notes * KORY ELI DDOB: [birth year] (79 yo M)Acc No.[id number]:12/07/2024 Progress Notes Patient: KORY MARRERO Provider: Lupis Rangel MD :1945 A ge:79 Y S ex:Male Date:12/07/2024 Address: [place], [id number] Subjective: * Chief Complaints: * A nnual Exam * HPI: D epression Screening: PHQ-9 L ittle interest or pleasure in doing things?Not at all F eeling down, depressed, or hopeless N ot at all T rouble falling or staying asleep, or sleeping too much N ot at all F eeling tired or having little energy N ot at all P oor appetite or overeating N ot at all F eeling bad about yourself or that you are a failure, or have let yourself or your family down N ot at all T rouble concentrating on things, such as reading the newspaper or watching television M ore than half the days M oving or speaking so slowly that other people could have noticed; or the opposite, being so fidgety or restless that you have been moving around a lot more than usual N ot at all T houghts that you would be better off or of hurting yourself in some way N ot at all T otal Score 2 I nterpretation M inimal Depression C OVID-19 Screening: Francis mack returns to the office today at the age of 79, for his annual physical examination. He has recently been on a fishing trip and enjoyed himself. He has a home blood pressure device which she says has been running high. He admits to some hearing loss. He is short of breath with prolonged exertion. He arises from sleep once a night to urinate. He is taking no new medications and has no new complaints.He continues his weight loss and sodium restriction.? He has no feelings of depression. Questions H ave you had any new onset fever, chills, cough, congestion, sore throat, shortness of breath, muscle aches? N o F all Risk Screening: Fall History H ave you had any falls with injury in the past year? N o H ave you had two or more falls in the past year? N o F all Risk Assessment: S SANCHEZ Questions: SDOH Questions I n the past year have you been worried about losing your housing? N o I n the past year have you or any family members you live with been unable to get any of the following when it was really needed? Check all that apply: N one * ROS: G eneral/Constitutional: pain o nly normal aches and pains. C hills d enies.?Fatigue a dmits. F ever d enies. E NT: Decreased hearing i n both ears. R espiratory: Cough d enies. C ardiovascular: Chest pain with exertion d enies. D yspnea on exertion?denies. S hortness of breath d enies. G astrointestinal: Constipation o ccasional. D ecreased appetite d enies. D iarrhea d enies. H eartburn d enies. N ausea d enies. R ectal bleeding d enies. V omiting d enies. H ematology: bruising d enies. p etechiae d enies. S wollen glands n one have been noted. G enitourinary: Frequent urination o nce a night. M usculoskeletal: Muscle aches d enies. P ainful joints d enies. S ciatica d enies. W eakness d enies. S kin: Itching d enies. R becky d enies. S kin lesion(s)?denies. N eurologic: Difficulty speaking d enies. D izziness d enies.?Headache d enies. L ow back pain d enies. P sychiatric: Depressed mood w hich is mild. * Medical History: * Surgical History: N o history * Hospitalization/Major Diagno stic Procedure: d iverticulitis [facility] 02/2020No history * Family History: F ather: 74 yrs, Obstruction of carotid artery, diabetes mellitus, coronary artery disease. M other: 91 yrs, Anxiety and hypotension. S on(s): alive. S iblings: alive. 1 brother(s) . 2 son(s) . . He says his sons are healthy and well. He has 1 brother that has no information about his health. One son has hypertension. He is not aware of any family history of mental illness or substance use disorder or addiction. * Social History: T obacco Use: T obacco Control (Standard) T obacco use: N onsmoker A dditional Findings: Tobacco non-user A ggressive nonsmoker D rugs/Alcohol: D rugs H ave you used drugs other than those for medical reasons in the past 12 months? N o D rug/Alcohol: A MARGO-C (Standard) D id you have a drink containing alcohol in the past year? N o P oints 0 I nterpretation N egative H frederick was born in [facility]. He worked in the [employer] in [facility]. 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 He has 2 sons Hugo Burnette. He is . He lives in [facility]. He is a . His blood type is A+. * Medications: T akinghydroCHLOROthiazide 25 MG Tablet 1 tablet in the morning Orally Once a day Metoprolol Succinate ER 50 MG Tablet Extended [...] times a day Lisinopril 40 MG Tablet Take 1 tablet by mouth once daily Amitriptyline HCl 25 MG Tablet TAKE 1 TABLET BY MOUTH AT BEDTIME Atorvastatin Calcium 10 MG Tablet TAKE 1 TABLET BY MOUTH ONCE EVERY SATURDAY, SATURDAY AND SATURDAY FOR 90 DAYS Medication List reviewed and reconciled with the patientTaking hydroCHLOROthiazide 25 MG Tablet 1 tablet in the morning Orally Once a day Taking Metoprolol Succinate ER 50 MG Tablet Extended Release 24 Hour 1.5 tablets Orally Once a day Taking Aspir-Low 81 MG Tablet Delayed Release 1 tablet Orally Once a day Taking Omeprazole 20 MG Tablet Delayed Release 1 tablet 30 minutes before morning meal Orally Once a day Taking Vitamin D 50 MCG (1999 [place]) Capsule 1 capsule Orally Once a day Taking Anusol-HC 25 MG Suppository 1 suppository Rectal Three times a day Taking Lisinopril 40 MG Tablet Take 1 tablet by mouth once daily Taking Amitriptyline HCl 25 MG Tablet TAKE 1 TABLET BY MOUTH AT BEDTIME Taking Atorvastatin Calcium 10 MG Tablet TAKE 1 TABLET BY MOUTH ONCE EVERY SATURDAY, SATURDAY AND SATURDAY FOR 90 DAYS Medication List reviewed and reconciled with the patient * Allergies: P enicillin G Sodiumno[Allergies Verified] Objective: * Vitals: H t: 64, Wt:201, BMI:34.5, BP:140/70, HR:66, Temp:97.9, Wt-k.17. * P ast Orders: Lab:Lipid Panel * Collection Date 12/02/2024 09/24/2024 07/14/2024 Collection Time 07:43 AM 09:45 AM 09:00 AM Order Date 12/02/2024 09/24/2024 07/14/2024 Triglycerides 108 (Ref Range: <150 mg/dL) 152 H (Ref Range: <150 mg/dL) 142 (Ref Range: <150 mg/dL) Cholesterol 108 (Ref Range: <200 mg/dL) 145 (Ref Range: <200 mg/dL) 158 (Ref Range: <200 mg/dL) LDL Cholesterol Calculated 64 (Ref Range: <100 mg/dL) 79 (Ref Range: <100 mg/dL) 99 (Ref Range: <100 mg/dL) HDL Cholesterol 23 L (Ref Range: >40 mg/dL) 36 L (Ref Range: >40 mg/dL) 31 L (Ref Range: >40 mg/dL) * Lab:Hemoglobin A1c * Collection Date 12/02/2024 09/24/2024 07/14/2024 Collection Time 07:43 AM 09:45 AM 09:00 AM Order Date 12/02/2024 09/24/2024 07/14/2024 Hemoglobin A1c % 6.4 H (Ref Range: <6.0 %) 6.3 H (Ref Range: <6.0 %) 6.6 H (Ref Range: <6.0 %) Estimated Average Glucose 137 (Ref Range: mg/dL) 134 (Ref Range: mg/dL) 143 (Ref Range: mg/dL) * Lab:Complete Blood Count Aut o Diff * Collection Date 12/02/2024 09/24/2024 07/14/2024 Collection Time 07:43 AM 09:45 AM 09:00 AM Order Date 12/02/2024 09/24/2024 07/14/2024 White Blood Count 7.8 (Ref Range: 4.8-10.8 X10*3/uL) 6.8 (Ref Range: 4.8-10.8 X10*3/uL) 8.6 (Ref Range: 4.8-10.8 X10*3/uL) Red Blood Count 4.62 (Ref Range: 4.60-5.80 X10*6/uL) 4.24 L (Ref Range: 4.60-5.80 X10*6/uL) 4.50 L (Ref Range: 4.60-5.80 X10*6/uL) Hemoglobin 14.1 (Ref Range: 14.0-18.0 g/dl) 13.2 L (Ref Range: 14.0-18.0 g/dl) 13.6 L (Ref Range: 14.0-18.0 g/dl) Hematocrit 41.2 L (Ref Range: 42.0-52.0 %) 38.7 L (Ref Range: 42.0-52.0 %) 40.1 L (Ref Range: 42.0-52.0 %) Mean Corpuscular Volume 89.2 (Ref Range: 80.0-98.0 fL) 91.3 (Ref Range: 80.0-98.0 fL) 89.1 (Ref Range: 80.0-98.0 fL) Mean Corpuscular Hemoglobin 30.5 (Ref Range: 27.0-33.0 pg) 31.1 (Ref Range: 27.0-33.0 pg) 30.2 (Ref Range: 27.0-33.0 pg) Mean Corpuscular HGB Conc 34.2 (Ref Range: 31.0-36.0 g/dl) 34.1 (Ref Range: 31.0-36.0 g/dl) 33.9 (Ref Range: 31.0-36.0 g/dl) Red Cell Distribution Width 12.1 (Ref Range: 11.0-16.0 %) 14.4 (Ref Range: 11.0-16.0 %) 13.6 (Ref Range: 11.0-16.0 %) Platelet Count 239 (Ref Range: 160-400 X10*3/uL) 260 (Ref Range: 160-400 X10*3/uL) 266 (Ref Range: 160-400 X10*3/uL) Mean Platelet Volume 10.9 (Ref Range: 9.4-12.4 fL) 10.4 (Ref Range: 9.4-12.4 fL) 10.6 (Ref Range: 9.4-12.4 fL) Neutrophils Percent Auto 58.9 (Ref Range: 45-73 %) 60.2 (Ref Range: 45-73 %) 63.6 (Ref Range: 45-73 %) Imm Gran Pct Auto 0.5 H (Ref Range: 0.0-0.4 %) 0.6 H (Ref Range: 0.0-0.4 %) 0.6 H (Ref Range: 0.0-0.4 %) Lymphocytes Percent Auto 30.0 (Ref Range: 20-40 %) 29.7 (Ref Range: 20-40 %) 26.1 (Ref Range: 20-40 %) Monocytes Percent Auto 8.5 (Ref Range: 2-11 %) 7.0 (Ref Range: 2-11 %) 7.1 (Ref Range: 2-11 %) Eosinophils Percent Auto 1.7 (Ref Range: 0-4 %) 2.1 (Ref Range: 0-4 %) 2.0 (Ref Range: 0-4 %) Basophils Percent Auto 0.4 (Ref Range: 0-2 %) 0.4 (Ref Range: 0-2 %) 0.6 (Ref Range: 0-2 %) NRBC Pct Auto 0.0 (Ref Range: 0.0-0.2 /100WBC) 0.0 (Ref Range: 0.0-0.2 /100WBC) 0.0 (Ref Range: 0.0-0.2 /100WBC) Neutrophils Absolute Auto 4.6 (Ref Range: 2.0-8.3 x10*3/uL) 4.1 (Ref Range: 2.0-8.3 x10*3/uL) 5.5 (Ref Range: 2.0-8.3 x10*3/uL) Imm Gran Abs Auto 0.04 H (Ref Range: 0.00-0.03 X10*3/uL) 0.04 H (Ref Range: 0.00-0.03 X10*3/uL) 0.05 H (Ref Range: 0.00-0.03 X10*3/uL) Lymphocytes Absolute Auto 2.4 (Ref Range: 1.2-4.9 X10*3/uL) 2.0 (Ref Range: 1.2-4.9 X10*3/uL) 2.2 (Ref Range: 1.2-4.9 X10*3/uL) Monocytes Absolute Auto 0.7 (Ref Range: 0.1-1.2 X10*3/uL) 0.5 (Ref Range: 0.1-1.2 X10*3/uL) 0.6 (Ref Range: 0.1-1.2 X10*3/uL) Eosinophils Absolute Auto 0.1 (Ref Range: 0.0-0.4 X10*3/uL) 0.1 (Ref Range: 0.0-0.4 X10*3/uL) 0.2 (Ref Range: 0.0-0.4 X10*3/uL) Basophils Absolute Auto 0.0 (Ref Range: 0.0-0.2 X10*3/uL) 0.0 (Ref Range: 0.0-0.2 X10*3/uL) 0.1 (Ref Range: 0.0-0.2 X10*3/uL) NRBC Abs Auto 0.000 (Ref Range: 0.0-0.012 X10*3/uL) 0.000 (Ref Range: 0.0-0.012 X10*3/uL) 0.000 (Ref Range: 0.0-0.012 X10*3/uL) * Lab:Jerica Rayo. Jessica l Fast * Collection Date 12/02/2024 09/24/2024 07/14/2024 Collection Time 07:43 AM 09:45 AM 09:00 AM Order Date 12/02/2024 09/24/2024 07/14/2024 Sodium 138 (Ref Range: 135-145 mmol/L) 138 (Ref Range: 135-145 mmol/L) 136 (Ref Range: 135-145 mmol/L) Bilirubin Total 0.6 (Ref Range: 0.0-1.0 mg/dL) 0.4 (Ref Range: 0.0-1.0 mg/dL) 0.7 (Ref Range: 0.0-1.0 mg/dL) Aspartate Amino Transferase 25 (Ref Range: 5-37 U/L) 21 (Ref Range: 5-37 U/L) 17 (Ref Range: 5-37 U/L) Alanine Aminotransferase 28 (Ref Range: 0-40 U/L) 21 (Ref Range: 0-40 U/L) 27 (Ref Range: 0-40 U/L) Total Protein 7.0 (Ref Range: 6.5-8.0 g/dL) 6.8 (Ref Range: 6.5-8.0 g/dL) 6.8 (Ref Range: 6.5-8.0 g/dL) Albumin Level 3.8 (Ref Range: 3.5-5.0 g/dL) 3.9 (Ref Range: 3.5-5.0 g/dL) 4.0 (Ref Range: 3.5-5.0 g/dL) Alkaline Phosphatase 53 (Ref Range: 39-117 U/L) 42 (Ref Range: 39-117 U/L) 51 (Ref Range: 39-117 U/L) Potassium 3.6 (Ref Range: 3.3-5.1 mmol/L) 3.8 (Ref Range: 3.3-5.1 mmol/L) 4.0 (Ref Range: 3.3-5.1 mmol/L) Chloride 104 (Ref Range: 96-108 mmol/L) 102 (Ref Range: 96-108 mmol/L) 102 (Ref Range: 96-108 mmol/L) Carbon Dioxide 27 (Ref Range: 22-29 mmol/L) 28 (Ref Range: 22-29 mmol/L) 28 (Ref Range: 22-29 mmol/L) Anion Gap 11 L (Ref Range: 12-20) 12 (Ref Range: 12-20) 10 L (Ref Range: 12-20) Blood Urea Nitrogen 21 H (Ref Range: 9-16 mg/dL) 22 H (Ref Range: 9-16 mg/dL) 19 H (Ref Range: 9-16 mg/dL) Creatinine 0.89 (Ref Range: 0.5-1.4 mg/dL) 0.80 (Ref Range: 0.5-1.4 mg/dL) 1.12 (Ref Range: 0.5-1.4 mg/dL) Estimated Glomerular Filt Rate > 60 > 60 > 60 Glucose Fasting 122 H (Ref Range: 60-99 mg/dL) 124 H (Ref Range: 60-99 mg/dL) 134 H (Ref Range: 60-99 mg/dL) Calcium 8.9 (Ref Range: 8.4-10.2 mg/dL) 9.2 (Ref Range: 8.4-10.2 mg/dL) 9.4 (Ref Range: 8.4-10.2 mg/dL) * Lab:Prostate Specific Antige n * Collection Date 09/24/2024 09/09/2023 09/10/2022 Collection Time 09:45 AM 07:50 AM 07:30 AM Order Date 09/24/2024 09/09/2023 09/10/2022 Prostate Specific Antigen 0.53 (Ref Range: <0.05-4.0 ng/mL) 0.68 (Ref Range: <0.05-4.0 ng/mL) 0.56 (Ref Range: <0.05-4.0 ng/mL) * Examination: G eneral Examination: GENERAL APPEARANCE: p leasant, well nourished, well developed, in no acute distress, calm and relaxed, obese, man. HEAD: a traumatic, normocephalic. EYES: e tab, perrla, anicteric, conjugate. EARS: N ormal anatomy with bilateral hearing loss. NOSE: s eptum intact. ORAL CAVITY: n ormal, unremarkable. NECK/THYROID: n o jugular venous distention, no carotid bruit, thyroid normal. LYMPH NODES: n o enlarged lymph nodes,spleen normal. SKIN: n o suspicious lesions, anicteric. HEART: n o clicks, gallops, murmurs, or rubs, regular rhythm, S1, S2 normal, no s3, or vascular bruits. LUNGS: c lear to auscultation . BREASTS: no masses palpable bilaterally. ABDOMEN: b owel sounds normal, no ascites, no organomegaly, no mass, centripital obesity. RECTAL EXAM: n ot examined, stool guaiac negative, prostate normal, no red blood. MUSCULOSKELETAL: e xtremities unremarkable, no clubbing, cyanosis or edema. PERIPHERAL PULSES: n ormal. NEUROLOGIC: a lert and oriented, cranial nerves 2-12 grossly intact, deep tendon reflexes 2+ symmetrical, motor strength normal upper and lower extremities, sensory exam intact. PSYCH: a lert, oriented, cooperative with exam, cognitive function intact, thought process logical, goal directed, speech clear. Assessment: * Assessment: 1. O besity (BMI 30.0-34.9) - E66.9 (Primary) N otes :He continues his efforts at weight loss. His weight is stable at 201 pounds with a body mass index of 34.5. We reviewed his weight loss strategy and detail. 2 . M ixed hyperlipidemia - E78.2 N otes :His lipids are currently stable and no change in his regimen was needed. 3 . E ssential hypertension - I10 N otes :His blood pressure is higher than optimal 140/70. We have discussed aggressive weight loss and sodium restriction. He did not wish to take more medication att this time. He'll be seen back in the near future for follow-up and lifestyle modification.He is considering whether he wants to take oral medication. He is coming back to the office in the future for another blood pressure. 4 . B PH (benign prostatic hyperplasia) - N40.0 N otes :He rises from sleep once or twice a night to urinate. We have discussed lifestyle modifications he could make to reduce nocturia. 5 . H istory of depression - Z86.59 N otes :His medication will be increased as needed. He is moderately depressed but stable and says the medication is benefiting him significantly. 6 . P rediabetes - R73.03 N otes :His fasting glucose once again is elevated at 122. His weight is stable. His hemoglobin A1c is 6.4. I have ordered a hemoglobin additional labs prior to his next visit. Plan: * Treatment: 2. M ixed hyperlipidemia L AB: PROFILE, FASTING (COMPREHENSIVE METABOLIC) L AB: CBC w DIFF L AB: Lipid Panel * Procedure Codes: * Preventive Medicine: Counseling: C are goal follow-up plan: Counseling for abnormal BMI given Y es Above Normal BMI Follow-up D ietary management education, guidance, and counseling, Dietary needs education, Exercise promotion: strength training, Exercise promotion: stretching, Feeding regime, Giving encouragement to exercise, Lifestyle education regarding diet, Nutrition / feeding management, Nutrition therapy, Prescribed activity/exercise education, Prescribed diet education, Prescribed dietary intake, Special diet education, Weight monitoring , Intervention, Order not done: Medical or Other reason not done * Follow Up: 4 Months (Reason: OV) * Images: * Sign off status: Completed true * Provider: Lupis Rangel MD Date: 0 12/07/2024 Generated for Wilfredo ying/Axel/Lelanditting on: 06/22/2025 10:25 AM EDT History and Physical Notes * HPI (History of Present Illness) Category Sub-Category Detail Notes Depression Screening PHQ-9 Little inte rest or pleasure in doing things: Not at all Feeling down, depressed, or hopeless: No t at all Trouble falling or staying asleep, or sl eeping too much: Not at all Feeling tired or having little energy: N ot at all Poor appetite or overeating: Not at all Feeling bad about yourself o r that you are a failure, or have let yourself or your family down: Not at all Trouble concentrating on thi ngs, such as reading the newspaper or watching television: More than half the days Moving or speaking so slowly that other people could have noticed; or the opposite, being so fidgety or restless that you have been moving around a lot more than usual: Not at all Thoughts that you would be b narendra off or of hurting yourself in some way: Not at all Total Score: 2 Interpretation: Minimal Depression Fall Risk Screening Fall History Have you had any falls with injury in the past year?: No Have you had two or more falls in the st year?: No Fall Risk Assessment:: COVID-19 Screening Questions Have you had any new onset fever, chills, cough, congestion, sore throat, shortness of breath, muscle aches?: No SDOH Questions SDOH Questions In the past year have you been worried about losing your housing?: No In the past year have you or any family members you live with been unable to get any of the following when it was really needed? Check all that apply:: None Examination Category Sub-Category Detail Notes General Examination GENERAL APPEARANCE: pleasant , well nourished, well developed, in no acute distress, calm and relaxed, obese, man HEAD: atraumatic, normocep halic EYES: eomi, perrla, anicte julia, conjugate EARS: Normal anatomy with bilateral hearing loss NOSE: septum intact NECK/THYROID: no jugular venous [...] lymph no clarissa,spleen normal RECTAL EXAM: not examined, stool guaiac negative, prostate normal, no red blood PSYCH: alert, oriented, third cook perative with exam, cognitive function intact, thought process logical, goal directed, speech clear ORAL CAVITY: normal, unremarkable
--- OUTSIDE RECORDS SUMMARY | 2025-01-19 10:30 | XMS_ITS ---
Author Organization Elías Rangel III, MD Address [address] [place] [address] [place] [address] Care Team Providers Care Communications Strategist Name Role Phone Dr. Elías Rangel III Primary Care Provider [phone] Allergies Allergen (clinical drug ingredient) Drug/Non Drug Allergy documented on EMR Reaction Allergy Type Onset Date Status penicillin G Penicillin G Sodium Unknown Drug Allergy Active REASON FOR VISIT Ischemic colitis, Obesity, Hypertension, Hyperlipidemia, Benign prostatic hypertrophy, Prediabetes Medications Medication SIG (Take, Route, Frequency, Duration) Notes Start Date End Date Status Metoprolol Succinate ER 50 MG 1.5 tablet s Orally Once a day 11/08/2020 Active hydroCHLOROthiazide 25 MG 1 tablet in th e morning Orally Once a day Active Amitriptyline HCl 25 MG TAKE 1 TABLET BY MOUTH AT BEDTIME Active Omeprazole 20 MG 1 tablet 30 minutes before morning meal Orally Once a day Active Aspir-Low 81 MG 1 tablet Orally Once a day Active Atorvastatin Calcium 10 MG TAKE 1 TABLET BY MOUTH ONCE EVERY SATURDAY, SATURDAY AND SATURDAY FOR 90 DAYS Active Lisinopril 40 MG Take 1 tablet by martín once daily Active Anusol-HC 25 MG 1 suppository Rectal [...] Nonsmoker Additional Findings: Tobacco non-user Aggressive nonsmoker Problems Problem Type SNOMED Code ICD Code Onset Dates Problem Status W/U Status Risk Notes Problem [id number] Ischemic colitis (K55.9) Active confirmed He was admitted to [facility] January 07, 2025 with abdominal pain and bleeding found by CT scanning to be ischemic colitis of the splenic flexure and descending colon. He will be having a colonoscopy in the near future. He has been asymptomatic since discharge from the hospital. He has an appointment later this month with Dr. Ramirez at [facility] for a colonoscopy. Vital Signs Temperature 98.2 degrees Fahrenheit 01/20/20 25 Blood pressure systolic 138 mm Hg 01/20/20 25 Blood pressure diastolic 80 mm Hg 025 Heart Rate 61 /min 01/19/2025 Height 64 in 01/19/2025 Weight 198 lbs 01/19/2025 BMI 33.98 kg/m2 01/19/2025 Encounters Encounter Location Date Provider Diagnosis Elías Rangel III, MD [address] [place] [address] [place] [address] 01/19/2025 Elías Rangel Obesity (BMI 30.0-34 .9) E66.9 ; Ischemic colitis K55.9 ; Mixed hyperlipidemia E78.2 ; History of depression Z86.59 ; Essential hypertension I10 ; BPH (benign prostatic hyperplasia) N40.0 and Prediabetes R73.03 Assessments Encounter Date Diagnosis (ICD Code) Assessment Notes Treat ment Notes Treatment Clinical Notes 01/19/2025 Obesity (BMI 30.0-34.9) (ICD-10 - E66.9) He continues his efforts at weight loss. His weight is stable at 201 pounds with a body mass index of 33.9. We reviewed his weight loss strategy and detail. 01/19/2025 Ischemic colitis (ICD-10 - K55.9) He was admitted to [facility] January 07, 2025 with abdominal pain and bleeding found by CT scanning to be ischemic colitis of the splenic flexure and descending colon. He will be having a colonoscopy in the neear future. He has been asymptomatic since discharge from the hospital. 01/19/2025 Mixed hyperlipidemia (ICD-10 - E78.2) His lipids are currently stable and will be checked 3 times a year. 01/19/2025 History of depressio n (ICD-10 - Z86.59) His medication will be increased as needed. He is moderately depressed but stable and says the medication is benefiting him significantly. 01/19/2025 Essential hypertension (ICD-10 - I10) His blood pressure is stable. We have discussed aggressive weight loss and sodium restriction. He did not wish to take more medication att this time. He'll be seen back in the near future for follow-up and lifestyle modification.He is considering whether he wants to take oral medication. He is coming back to the office in the future for another blood pressure. 01/19/2025 BPH (benign prostati c hyperplasia) (ICD-10 - N40.0) He rises from sleep once or twice a night to urinate. We have discussed lifestyle modifications he could make to reduce nocturia. 01/19/2025 Prediabetes (ICD-10 - R73.03) His most recent glucose in the hospital was 114. A hemoglobin A1c is pending. Plan Of Treatment Medication Medication Name Sig Start Date Stop Date Notes Metoprolol Succinate ER 50 MG 1.5 tablet s Orally Once a day 11/08/2020 hydroCHLOROthiazide 25 MG 1 tablet in th e morning Orally Once a day Amitriptyline HCl 25 MG TAKE 1 TABLET BY MOUTH AT BEDTIME Omeprazole 20 MG 1 tablet 30 minutes before morning meal Orally Once a day Aspir-Low 81 MG 1 tablet Orally Once a day Atorvastatin Calcium 10 MG TAKE 1 TABLET BY MOUTH ONCE EVERY SATURDAY, SATURDAY AND SATURDAY FOR 90 DAYS Lisinopril 40 MG Take 1 tablet by martín once daily Anusol-HC 25 MG 1 suppository Rectal Three times a day Vitamin D 50 MCG (1999) 1 capsule Orally Once a day Pending Test Test Name Order Date PROFILE, RANDOM (COMPREHENSIVE METABOLIC ) 01/19/2025 CBC w DIFF 01/19/2025 Next Appt Details Follow Up: 2 Weeks, Reason: OV Provider Name:Elías Rangel , 07/02/2025 10:30:00 AM, [address] [place] [address] [address], [place], [phone], Provider Name:Elías Rangel , 12/08/2025 02:00:00 PM, [address] [place] [address] [address], [place], [phone], Progress Notes * KORY ELI DDOB: [birth year] (79 yo M)Acc No.[id number]:01/19/2025 Patient: KORY MARRERO Provider: Lupis Rangel MD :1945 A ge:79 Y S ex:Male Date:01/19/2025 Address: [place], [id number] Subjective: * Chief Complaints: * I schemic colitisObesityHypertensionHyperlipidemiaBenign prostatic hypertrophyPrediabetes * HPI: C OVID-19 Screening: Five years ago he had an episode of rectal bleeding thought to be ischemic colitis. On January 07, 2025 he developed crampy abdominal And hematochezia. He was admitted to [facility] after CT scanning of the abdomen with angiography showed probable ischemic colitis in the splenic flexure and descending colon. He was kept in the hospital until discharge January 09 and the bleeding stopped. He is pain-free today and has had no further bleeding. He has an appointment with Dr. Ramirez of their gastroenterology department February 17, 2025 for colonoscopy. He is eating and drinking normally today and free of discomfort. While in the hospital blood work showed a white count of 9.35 hematocrit 38.1 platelets 228 glucose 114 BUN 17 creatinine 0.8 and magnesium 1.5. He was given intravenous magnesium before discharge. Abdominal examination today was unremarkable. Close follow-up was initiated. Questions H ave you had any new onset fever, chills, cough, congestion, sore throat, shortness of breath, muscle aches? N o * ROS: G eneral/Constitutional: pain o nly [...] N ausea d enies. R ectal bleeding R ecently January 07, 2025. V omiting d enies. H ematology: bruising [...] pain d enies. P sychiatric: Depressed mood d enies. * Medical History: * Surgical History: N o history * Hospitalization/Major Diagno stic Procedure: d iverticulitis [facility] 02/2020[facility] 12/2024 * Family History: F ather: 74 yrs, [...] dditional Findings: Tobacco non-user A ggressive nonsmoker Francis mack was born in [facility]. He worked in the [employer] in [facility]. 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 He has 2 sons Hugo Burnette. He is . He lives in [facility]. He is a . His blood type is A+. * Medications: T akingAtorvastatin Calcium 10 MG Tablet TAKE 1 TABLET BY MOUTH ONCE EVERY SATURDAY, SATURDAY AND SATURDAY FOR 90 DAYS Lisinopril 40 MG Tablet Take 1 tablet by mouth once daily Amitriptyline HCl 25 MG Tablet TAKE 1 TABLET BY MOUTH AT BEDTIME hydroCHLOROthiazide 25 MG Tablet 1 tablet in the morning Orally Once a day Metoprolol Succinate ER 50 MG Tablet Extended Release 24 Hour 1.5 tablets Orally Once a day Aspir-Low 81 MG Tablet Delayed Release 1 tablet Orally Once a day Omeprazole 20 MG Tablet Delayed Release 1 tablet 30 minutes before morning meal Orally twice a day Vitamin D 50 MCG (1999) Capsule 1 capsule Orally Once a day Taking Atorvastatin Calcium 10 MG Tablet TAKE 1 TABLET BY MOUTH ONCE EVERY SATURDAY, SATURDAY AND SATURDAY FOR 90 DAYS Taking Lisinopril 40 MG Tablet Take 1 tablet by mouth once daily Taking Amitriptyline HCl 25 MG Tablet TAKE 1 TABLET BY MOUTH AT BEDTIME Taking hydroCHLOROthiazide 25 MG Tablet 1 tablet in the morning Orally Once a day Taking Metoprolol Succinate ER 50 MG Tablet Extended Release 24 Hour 1.5 tablets Orally Once a day Taking Aspir-Low 81 MG Tablet Delayed Release 1 tablet Orally Once a day Taking Omeprazole 20 MG Tablet Delayed Release 1 tablet 30 minutes before morning meal Orally twice a day Taking Vitamin D 50 MCG (1999) Capsule 1 capsule Orally Once a day DiscontinuedAnusol-HC 25 MG Suppository 1 suppository Rectal Three times a day Medication List reviewed and reconciled with the patientDiscontinued Anusol-HC 25 MG Suppository 1 suppository Rectal Three times a day Medication List reviewed and reconciled with the patient * Allergies: P enicillin G Sodiumno[Allergies Verified] Objective: * Vitals: H t: 64, Wt:198, BMI:33.98, BP:138/80, HR:61, Temp:98.2, Wt-k.81. * Examination: G eneral Examination: GENERAL APPEARANCE: p leasant, well nourished, well developed, in no acute distress, calm and relaxed, obese, man. HEAD: a traumatic, normocephalic. EYES: e tab, perrla, anicteric, conjugate. EARS: n ormal. NOSE: s eptum intact. ORAL CAVITY: n [...] sounds normal, no ascites, no organomegaly, no mass. RECTAL EXAM: n ot examined. MUSCULOSKELETAL: e xtremities unremarkable, no clubbing, cyanosis or edema. PERIPHERAL PULSES: n ormal. NEUROLOGIC: a lert and oriented, cranial nerves 2-12 grossly intact, deep tendon reflexes 2+ symmetrical, motor strength normal upper and lower extremities, sensory exam intact. PSYCH: a lert, oriented. Assessment: * Assessment: 1. I schemic colitis - K55.9 (Primary) N otes :He was admitted to [facility] January 07, 2025 with abdominal pain and bleeding found by CT scanning to be ischemic colitis of the splenic flexure and descending colon. He will be having a colonoscopy in the neear future. He has been asymptomatic since discharge from the hospital. 2 . O besity (BMI 30.0-34.9) - E66.9 N otes :He continues his efforts at weight loss. His weight is stable at 201 pounds with a body mass index of 33.9. We reviewed his weight loss strategy and detail. 3 . M ixed hyperlipidemia - E78.2 N otes :His lipids are currently stable and will be checked 3 times a year. 4 . H istory of depression - Z86.59 N otes :His medication will be increased as needed. He is moderately depressed but stable and says the medication is benefiting him significantly. 5 . E ssential hypertension - I10 N otes :His blood pressure is stable. We have discussed aggressive weight loss and sodium restriction. He did not wish to take more medication att this time. He'll be seen back in the near future for follow-up and lifestyle modification.He is considering whether he wants to take oral medication. He is coming back to the office in the future for another blood pressure. 6 . B PH (benign prostatic hyperplasia) - N40.0 N otes :He rises from sleep once or twice a night to urinate. We have discussed lifestyle modifications he could make to reduce nocturia. 7 . P rediabetes - R73.03 N otes :His most recent glucose in the hospital was 114. A hemoglobin A1c is pending. Plan: * Treatment: 2. M ixed hyperlipidemia L AB: PROFILE, RANDOM (COMPREHENSIVE METABOLIC) L AB: CBC w DIFF * Procedure Codes: 9 9495 TRANS CARE MGMT 14 DAY DISCH * Preventive Medicine: Counseling: C are goal follow-up plan: Counseling for abnormal BMI given Y es Above Normal BMI Follow-up D ietary management education, guidance, and counseling * Follow Up: 2 Weeks (Reason: OV) * Images: * Sign off status: Completed true * Provider: Lupis Rangel MD Date: 0 01/19/2025 Generated for Wilfredo ying/Axel/eTransmitting on: 0 06/22/2025 10:24 AM EDT History and Physical Notes * [...]
--- OUTSIDE RECORDS SUMMARY | 2025-02-02 07:15 | XMS_ITS ---
Author Organization Elías Rangel III, MD Address [address] [place] [address] [place] [address] Care Team Providers Care Fur Scraper Name Role Phone Dr. Elías Rangel III Primary Care Provider Allergies Allergen (clinical drug ingredient) Drug/Non Drug Allergy documented on EMR Reaction Allergy Type Onset Date Status penicillin G Penicillin G Sodium Unknown Drug Allergy Active REASON FOR VISIT Recent hospitalization for ischemic colitis all, Obesity, Hypertension, Hyperlipidemia, Benign prostatic hypertrophy, prediabetes Medications Medication SIG (Take, Route, Frequency, Duration) Notes Start Date End Date Status Lisinopril 40 MG Take 1 tablet by martín th once daily Active Atorvastatin Calcium 10 MG TAKE 1 TABLET BY MOUTH ONCE EVERY SATURDAY, SATURDAY AND SATURDAY FOR 90 DAYS Active Amitriptyline HCl 25 MG TAKE 1 TABLET BY MOUTH AT BEDTIME Active Aspir-Low 81 MG 1 tablet Orally Once a day Active hydroCHLOROthiazide 25 MG 1 tablet in th e morning Orally Once a day Active Anusol-HC 25 MG 1 suppository Rectal Three times a day Active Metoprolol Succinate ER 50 MG 1.5 tablet s Orally Once a day Active Vitamin D 50 MCG (1999) 1 capsule Ora lly Once a day Active Omeprazole 20 MG 1 tablet 30 minutes before morning meal Orally Once a day Active Social History Tobacco Use: Social History Observation Description Date Details (start date - stop date) Never Smoker NA - NA Sex Assigned At : Social History Observation Description Sex Assigned At Male Tobacco Control (Standard) Question Answer Notes Tobacco use: Nonsmoker Additional Findings: Tobacco non-user Aggressive nonsmoker Vital Signs Temperature 97.5 degrees Fahrenheit 02/03/20 25 Blood pressure systolic 140 mm Hg 02/03/20 25 Blood pressure diastolic 74 mm Hg 025 Heart Rate 86 /min 02/02/2025 Height 64 in 02/02/2025 Weight 199 lbs 02/02/2025 BMI 34.15 kg/m2 02/02/2025 Encounters Encounter Location Date Provider Diagnosis Elías Rangel III, MD [address] [place] [address] DR [place]IS, SANDIE [id number] 02/02/2025 Elías Rangel Obesity (BMI 30.0-34 .9) E66.9 ; Ischemic colitis K55.9 ; Essential hypertension I10 ; Mixed hyperlipidemia E78.2 ; History of depression Z86.59 ; BPH (benign prostatic hyperplasia) N40.0 and Prediabetes R73.03 Assessments Encounter Date Diagnosis (ICD Code) Assessment Notes Treat ment Notes Treatment Clinical Notes 02/02/2025 Obesity (BMI 30.0-34.9) (ICD-10 - E66.9) He continues his efforts at weight loss. His weight is stable at 201 pounds with a body mass index of 33.9. We reviewed his weight loss strategy and detail. 02/02/2025 Ischemic colitis (ICD-10 - K55.9) He was admitted to [facility] January 07, 2025 with abdominal pain and bleeding found by CT scanning to be ischemic colitis of the splenic flexure and descending colon. He will be having a colonoscopy in the near future. He has been asymptomatic since discharge from the hospital. He has an appointment later this month with Dr. Ramirez at [facility] for a colonoscopy. 02/02/2025 Essential hypertension (ICD-10 - I10) His blood [...] in the future for another blood pressure. 02/02/2025 Mixed hyperlipidemia (ICD-10 - E78.2) His lipids are currently stable and will be checked 3 times a year. 02/02/2025 History of depression (ICD-10 - Z86.59) His medication will be increased as needed. He is moderately depressed but stable and says the medication is benefiting him significantly. 02/02/2025 BPH (benign prostatic hyperplasia) (ICD-10 - N40.0) He rises from sleep once or twice a night to urinate. We have discussed lifestyle modifications he could make to reduce nocturia. 02/02/2025 Prediabetes (ICD-10 - R73.03) His hemoglobin A1c is 6.4. His fasting glucoses between 139 and 122. We are calling this prediabetes and the recommendation is aggressive weight loss and a diabetic diet. Plan Of Treatment Medication Medication Name Sig Start Date Stop Date Notes Lisinopril 40 MG Take 1 tablet by martín once daily Atorvastatin Calcium 10 MG TAKE 1 TABLET BY MOUTH ONCE EVERY SATURDAY, SATURDAY AND SATURDAY FOR 90 DAYS Amitriptyline HCl 25 MG TAKE 1 TABLET BY MOUTH AT BEDTIME Aspir-Low 81 MG 1 tablet Orally Once a day hydroCHLOROthiazide 25 MG 1 tablet in morning Orally Once a day Anusol-HC 25 MG 1 suppository Rectal Three times a day Metoprolol Succinate ER 50 MG 1.5 tablet s Orally Once a day Vitamin D 50 MCG (1999) 1 capsule Orally Once a day Omeprazole 20 MG 1 tablet 30 minutes before morning meal Orally Once a day Next Appt Details Follow Up: beginning of February , Reason: ov no tests Provider Name:Elías Rangel , 07/02/2025 10:30:00 AM, [address] [place] [address] YANI MENDES, [place], [id number], Provider Name:Elías Rangel , 12/08/2025 02:00:00 PM, [address] [place] [address] YANI MENDES, SANDIE MOYA, [phone], Progress Notes * KORY ELI DDOB: [birth year] (79 yo M)Acc No.[id number]:02/02/2025 Progress Notes Patient: KORY MARRERO Provider: Lupis Rangel MD :1945 A ge:79 Y S ex:Male Date:02/02/2025 Address:[address] [place], [place] [id number] Subjective: * Chief Complaints: * R ecent hospitalization for ischemic colitis allObesityHypertensionHyperlipidemiaBenign prostatic hypertrophyPrediabetes * HPI: C OVID-19 Screening: Francis mack has had no further rectal bleeding or abdominal pain. His bowel functions have returned to normal. He has a movement every other day. He has an appointment February 17, 2025 at [facility] with Dr. Ramirez to a plan a colonoscopy. We discussed diet and lifestyle things today. His hemoglobin A1c is 6.. We discussed the difference between 80s and prediabetes. Questions H ave you had any new [...] enies. D iarrhea d enies. H e[place] o ccasional. N ausea d enies. R ectal bleeding L ast month from ischemic colitis all. V omiting d enies. H ematology: bruising [...] * Hospitalization/Major Diagno stic Procedure: d iverticulitis [facility] 02/2020[facility] 12/2024 * Family History: F ather: 74 [...] ggressive nonsmoker Francis mack was born in [facility]. He worked in the [employer] in [facility]. 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 He has 2 sons Hugo Burnette. He is . He lives in [facility]. He is a . His blood [...] in the morning Orally Once a day Aspir-Low 81 MG [...] Hour 1.5 tablets Orally Once a day Medication List reviewed and reconciled with the patientTaking Atorvastatin Calcium 10 MG Tablet TAKE 1 TABLET BY MOUTH ONCE EVERY SATURDAY, SATURDAY AND SATURDAY FOR 90 DAYS Taking Lisinopril 40 MG Tablet Take 1 tablet by mouth once daily Taking Amitriptyline HCl 25 MG Tablet TAKE 1 TABLET BY MOUTH AT BEDTIME Taking hydroCHLOROthiazide 25 MG Tablet 1 tablet in the morning Orally Once a day Taking Aspir-Low 81 MG Tablet Delayed Release 1 tablet Orally Once a day Taking Omeprazole 20 MG Tablet Delayed Release 1 tablet 30 minutes before morning meal Orally Once a day Taking Vitamin D 50 MCG (2000 UT) Capsule 1 capsule Orally Once a day Taking Anusol-HC 25 MG Suppository 1 suppository Rectal Three times a day Taking Metoprolol Succinate ER 50 MG Tablet Extended Release 24 Hour 1.5 tablets Orally Once a day Medication List reviewed and reconciled with the patient * Allergies: P enicillin G Sodiumno[Allergies Verified] Objective: * Vitals: H t: 64, Wt:199, BMI:34.15, BP:140/74, HR:86, Temp:97.5, Wt-k.26. * P ast Orders: Lab:Complete Blood Count Aut o Diff * Collection Date 01/27/2025 12/02/2024 09/24/2024 Collection Time 07:40 AM 07:43 AM 09:45 AM Order Date 01/27/2025 12/02/2024 09/24/2024 White Blood Count 7.8 (Ref Range: 4.8-10.8 X10*3/uL) 7.8 (Ref Range: 4.8-10.8 X10*3/uL) 6.8 (Ref Range: 4.8-10.8 X10*3/uL) Red Blood Count 4.77 (Ref Range: 4.60-5.80 X10*6/uL) 4.62 (Ref Range: 4.60-5.80 X10*6/uL) 4.24 L (Ref Range: 4.60-5.80 X10*6/uL) Hemoglobin 13.6 L (Ref Range: 14.0-18.0 g/dl) 14.1 (Ref Range: 14.0-18.0 g/dl) 13.2 L (Ref Range: 14.0-18.0 g/dl) Hematocrit 41.4 L (Ref Range: 42.0-52.0 %) 41.2 L (Ref Range: 42.0-52.0 %) 38.7 L (Ref Range: 42.0-52.0 %) Mean Corpuscular Volume 86.8 (Ref Range: 80.0-98.0 fL) 89.2 (Ref Range: 80.0-98.0 fL) 91.3 (Ref Range: 80.0-98.0 fL) Mean Corpuscular Hemoglobin 28.5 (Ref Range: 27.0-33.0 pg) 30.5 (Ref Range: 27.0-33.0 pg) 31.1 (Ref Range: 27.0-33.0 pg) Mean Corpuscular HGB Conc 32.9 (Ref Range: 31.0-36.0 g/dl) 34.2 (Ref Range: 31.0-36.0 g/dl) 34.1 (Ref Range: 31.0-36.0 g/dl) Red Cell Distribution Width 13.2 (Ref Range: 11.0-16.0 %) 12.1 (Ref Range: 11.0-16.0 %) 14.4 (Ref Range: 11.0-16.0 %) Platelet Count 269 (Ref Range: 160-400 X10*3/uL) 239 (Ref Range: 160-400 X10*3/uL) 260 (Ref Range: 160-400 X10*3/uL) Mean Platelet Volume 11.3 (Ref Range: 9.4-12.4 fL) 10.9 (Ref Range: 9.4-12.4 fL) 10.4 (Ref Range: 9.4-12.4 fL) Neutrophils Percent Auto 57.7 (Ref Range: 45-73 %) 58.9 (Ref Range: 45-73 %) 60.2 (Ref Range: 45-73 %) Imm Gran Pct Auto 0.8 H (Ref Range: 0.0-0.4 %) 0.5 H (Ref Range: 0.0-0.4 %) 0.6 H (Ref Range: 0.0-0.4 %) Lymphocytes Percent Auto 30.8 (Ref Range: 20-40 %) 30.0 (Ref Range: 20-40 %) 29.7 (Ref Range: 20-40 %) Monocytes Percent Auto 8.0 (Ref Range: 2-11 %) 8.5 (Ref Range: 2-11 %) 7.0 (Ref Range: 2-11 %) Eosinophils Percent Auto 2.3 (Ref Range: 0-4 %) 1.7 (Ref Range: 0-4 %) 2.1 (Ref Range: 0-4 %) Basophils Percent Auto 0.4 (Ref Range: 0-2 %) 0.4 (Ref Range: 0-2 %) 0.4 (Ref Range: 0-2 %) NRBC Pct Auto 0.0 (Ref Range: 0.0-0.2 /100WBC) 0.0 (Ref Range: 0.0-0.2 /100WBC) 0.0 (Ref Range: 0.0-0.2 /100WBC) Neutrophils Absolute Auto 4.5 (Ref Range: 2.0-8.3 x10*3/uL) 4.6 (Ref Range: 2.0-8.3 x10*3/uL) 4.1 (Ref Range: 2.0-8.3 x10*3/uL) Imm Gran Abs Auto 0.06 H (Ref Range: 0.00-0.03 X10*3/uL) 0.04 H (Ref Range: 0.00-0.03 X10*3/uL) 0.04 H (Ref Range: 0.00-0.03 X10*3/uL) Lymphocytes Absolute Auto 2.4 (Ref Range: 1.2-4.9 X10*3/uL) 2.4 (Ref Range: 1.2-4.9 X10*3/uL) 2.0 (Ref Range: 1.2-4.9 X10*3/uL) Monocytes Absolute Auto 0.6 (Ref Range: 0.1-1.2 X10*3/uL) 0.7 (Ref Range: 0.1-1.2 X10*3/uL) 0.5 (Ref Range: 0.1-1.2 X10*3/uL) Eosinophils Absolute Auto 0.2 (Ref Range: 0.0-0.4 X10*3/uL) 0.1 (Ref Range: 0.0-0.4 X10*3/uL) 0.1 (Ref Range: 0.0-0.4 X10*3/uL) Basophils Absolute Auto 0.0 (Ref Range: 0.0-0.2 X10*3/uL) 0.0 (Ref Range: 0.0-0.2 X10*3/uL) 0.0 (Ref Range: 0.0-0.2 X10*3/uL) NRBC Abs Auto 0.000 (Ref Range: 0.0-0.012 X10*3/uL) 0.000 (Ref Range: 0.0-0.012 X10*3/uL) 0.000 (Ref Range: 0.0-0.012 X10*3/uL) ???Lab:Comprehensive Met. Panel (Order Date - 01/27/2025) (Collection Date & Time - 01/27/2025 07:40 AM)?ValueReference Range?[id number] - mmol/L?Bilirubin Total0.50.0-1.0 - mg/dL?Aspartate Amino Nyqcfcfepsj661-73 - U/L?Alanine Eerfqpmsxnowoelf323-63 - U/L?Total Protein6.76.5-8.0 - g/dL?Albumin Level3.93.5-5.0 - g/dL?Alkaline Dmmyvnrtwiz5440-827 - U/L?Potassium3.63.3-5.1 - mmol/L?Jpvjtcps361 96-108 - mmol/L?Carbon Cqampgk0948-70 - mmol/L?Anion Frt3255-63 - ?Blood Urea Zczuznsf68N9-72 - mg/dL?Creatinine0.950.5-1.4 - mg/dL ?Estimated Glomerular Filt Rate> 60-?Glucose Nccnrk215A12-547 - mg/dL?Calcium9.28.4-10.2 - mg/dL * Lab:Hemoglobin A1c * Collection Date 12/02/2024 09/24/2024 07/14/2024 Collection Time 07:43 AM 09:45 AM 09:00 AM Order Date 12/02/2024 09/24/2024 07/14/2024 Hemoglobin A1c % 6.4 H (Ref Range: <6.0 %) 6.3 H (Ref Range: <6.0 %) 6.6 H (Ref Range: <6.0 %) Estimated Average Glucose 137 (Ref Range: mg/dL) 134 (Ref Range: mg/dL) 143 (Ref Range: mg/dL) * Lab:Lipid Panel * Collection Date 12/02/2024 09/24/2024 [...] 31 L (Ref Range: >40 mg/dL) * Lab:Comprehensive [place]. Pane l Fast * Collection Date 12/02/2024 09/24/2024 [...] mg/dL) 9.4 (Ref Range: 8.4-10.2 mg/dL) * Examination: G eneral Examination: GENERAL APPEARANCE: [...] mass, centripital obesity. RECTAL EXAM: n ot examined. MUSCULOSKELETAL: e xtremities unremarkable, no clubbing, cyanosis or edema. PERIPHERAL PULSES: T he carotids are palpable, diminished in the legs all. NEUROLOGIC: a lert and oriented, cranial nerves 2-12 grossly intact, deep tendon reflexes 2+ symmetrical, motor strength normal upper and lower extremities, sensory exam intact. PSYCH: a lert, oriented. Assessment: * Assessment: 1. I schemic colitis - K55.9 (Primary) N otes :He was admitted to [facility] January 07, 2025 with abdominal pain and bleeding found by CT scanning to be ischemic colitis of the splenic flexure and descending colon. He will be having a colonoscopy in the near future. He has been asymptomatic since discharge from the hospital. He has an appointment later this month with Dr. Ramirez at [facility] for a colonoscopy. 2 . O besity (BMI 30.0-34.9) - E66.9 N otes :He continues his efforts at weight loss. His weight is stable at 201 pounds with a body mass index of 33.9. We reviewed his weight loss strategy and detail. 3 . E ssential hypertension - I10 [...] future for another blood pressure. 4 . M ixed hyperlipidemia - E78.2 N otes :His lipids are currently stable and will be checked 3 times a year. 5 . H istory of depression - Z86.59 N otes :His medication will be increased as needed. He is moderately depressed but stable and says the medication is benefiting him significantly. 6 . B PH (benign prostatic hyperplasia) - N40.0 N otes :He rises from sleep once or twice a night to urinate. We have discussed lifestyle modifications he could make to reduce nocturia. 7 . P rediabetes - R73.03 N otes :His hemoglobin A1c is 6.4. His fasting glucoses between 139 and 122. We are calling this prediabetes and the recommendation is aggressive weight loss and a diabetic diet. Plan: * Treatment: * Procedure Codes: * Preventive Medicine: Counseling: [...] Other reason not done * Follow Up: b eginning of February (Reason: ov no tests) * Images: * Sign off status: Completed true * Provider: Lupis Rangel MD Date: 0 02/02/2025 Generated for Wilfredo ying/Axel/eTransmitting on: 0 06/22/2025 10:25 AM EDT History and Physical [...] no suspicious lesion s, anicteric PERIPHERAL PULSES: The carotids are pal pable, diminished in the legs all BREASTS: no masses palpable b ilaterally MUSCULOSKELETAL: extremities unremark able, no clubbing, cyanosis or edema LYMPH NODES: no enlarged lymph no clarissa,spleen normal RECTAL EXAM: not examined PSYCH: alert, oriented ORAL CAVITY: normal, unremarkable
--- OUTSIDE RECORDS SUMMARY | 2025-03-02 06:30 | XMS_ITS ---
Author Organization Elías Rangel III, MD Address [address] [address] Care Team Providers Care Red Hat Linux Administrator Name Role Phone Dr. Elías Rangel III Primary Care Provider [phone] Allergies Allergen (clinical drug ingredient) Drug/Non Drug Allergy documented on EMR Reaction Allergy Type Onset Date Status penicillin G Penicillin G Sodium Unknown Drug Allergy Active REASON FOR VISIT Ischemic colitis, Benign prosthetic hypertrophy, Obesity, Depression, Hypertension Medications Medication SIG (Take, Route, Frequency, Duration) Notes Start Date End Date Status Vitamin D 50 MCG (1999) 1 capsule Ora lly Once a day Active Anusol-HC 25 MG 1 suppository Rectal Three times a day Active Aspir-Low 81 MG 1 tablet Orally Once a day Active Omeprazole 20 MG 1 tablet 30 minutes before morning meal Orally Once a day Active hydroCHLOROthiazide 25 MG 1 tablet in th e morning Orally Once a day Active Metoprolol Succinate ER 50 MG 1.5 tablet s Orally Once a day Active Atorvastatin Calcium 10 MG TAKE 1 TABLET BY MOUTH ONCE EVERY SATURDAY, SATURDAY AND SATURDAY FOR 90 DAYS Active Amitriptyline HCl 25 MG TAKE 1 TABLET BY MOUTH AT BEDTIME Active Lisinopril 40 MG Take 1 tablet by martín th once daily Active Social History Tobacco Use: Social History Observation Description Date Details (start date - stop date) Never Smoker NA - NA Sex Assigned At : Social History Observation Description Sex Assigned At Male Tobacco Control (Standard) Question Answer Notes Tobacco use: Nonsmoker Additional Findings: Tobacco non-user Aggressive nonsmoker Vital Signs Temperature 97.4 degrees Fahrenheit 03/02/20 25 Blood pressure systolic 138 mm Hg 03/02/20 25 Blood pressure diastolic 77 mm Hg 025 Heart Rate 58 /min 03/02/2025 Height 64 in 03/02/2025 Weight 203 lbs 03/02/2025 BMI 34.84 kg/m2 03/02/2025 Encounters Encounter Location Date Provider Diagnosis Elías Rangel III, MD [address] [place] [address] [place], [place] [address] 03/02/2025 Elías Rangel Obesity (BMI 30.0-34 .9) E66.9 ; Ischemic colitis K55.9 ; BPH (benign prostatic hyperplasia) N40.0 ; Mixed hyperlipidemia E78.2 ; Prediabetes R73.03 ; History of depression Z86.59 and Other obesity due to excess calories E66.09 Assessments Encounter Date Diagnosis (ICD Code) Assessment Notes Treat ment Notes Treatment Clinical Notes 03/02/2025 Obesity (BMI 30.0-34.9) (ICD-10 - E66.9) He continues his efforts at weight loss. His weight is stable at 201 pounds with a body mass index of 33.9. We reviewed his weight loss strategy and detail. 03/02/2025 Ischemic colitis (ICD-10 - K55.9) He was admitted to [facility] January 07, 2025 with abdominal pain and bleeding found by CT scanning to be ischemic colitis of the splenic flexure and descending colon. He will be having a colonoscopy in the near future. He has been asymptomatic since discharge from the hospital. He has an appointment later this month with Dr. Ramirez at [facility] for a colonoscopy. 03/02/2025 BPH (benign prostati c hyperplasia) (ICD-10 - N40.0) We have discussed lifestyle modification sacred made to reduce nocturia. Currently he rises about once a night to urinate. 03/02/2025 Mixed hyperlipidemia (ICD-10 - E78.2) His lipids are currently well controlled and no change in his regimen was made. 03/02/2025 Prediabetes (ICD-10 - R73.03) His hemoglobin A1c is 6.4. His fasting glucose is 122. We have discussed weight loss and exercise and diet today. 03/02/2025 History of depressio n (ICD-10 - Z86.59) His medication will be increased as needed. He is moderately depressed but stable and says the medication is benefiting him significantly. 03/02/2025 Other obesity due to excess calories (ICD-10 - E66.09) We have discharged weight loss strategies today. Plan Of Treatment Medication Medication Name Sig Start Date Stop Date Notes Vitamin D 50 MCG (1999) 1 capsule Orally Once a day Anusol-HC 25 MG 1 suppository Rectal Three times a day Aspir-Low 81 MG 1 tablet Orally Once a day Omeprazole 20 MG 1 tablet 30 minutes before morning meal Orally Once a day hydroCHLOROthiazide 25 MG 1 tablet in e morning Orally Once a day Metoprolol Succinate ER 50 MG 1.5 tablet s Orally Once a day Atorvastatin Calcium 10 MG TAKE 1 TABLET BY MOUTH ONCE EVERY SATURDAY, SATURDAY AND SATURDAY FOR 90 DAYS Amitriptyline HCl 25 MG TAKE 1 TABLET BY MOUTH AT BEDTIME Lisinopril 40 MG Take 1 tablet by martín once daily Pending Test Test Name Order Date PROFILE, FASTING (COMPREHENSIVE METABOLI C) 03/02/2025 LIPID PANEL 03/02/2025 PSA, TOTAL 03/02/2025 CBC w DIFF 03/02/2025 Next Appt Details Follow Up: 4 Months, Reason: OV Provider Name:Elías Rangel , 07/02/2025 10:30:00 AM, [address] [place] [address] [address], [place], [address], Provider Name:Elías Rangel , 12/08/2025 02:00:00 PM, [address] [place] [address] [address], [place], [address], Progress Notes * KORY ELI DDOB: [birth year] (79 yo M)Acc No.[id number]:03/02/2025 Progress Notes Patient: KORY MARRERO Provider: Lupis Rangel MD :1945 A ge:79 Y S ex:Male Date:03/02/2025 Address:[address] [place] [id number] Subjective: * Chief Complaints: * I schemic colitisBenign prosthetic hypertrophyObesityDepressionHypertension * HPI: C OVID-19 Screening: He has had no further episodes of rectal bleeding or abdominal pain or fever. A colonoscopy is being planned [facility]. His depression is stable. He rises from sleep once or twice a night to urinate. No recent blood work is available. He says he is eating a normal healthy diet. Questions H ave you had any new [...] D ecreased appetite d enies. D iarrhea N one recently. H eartburn d enies. N ausea d [...] * Hospitalization/Major Diagno stic Procedure: d iverticulitis [facility] 02/2020[facility] 12/2024 * Family History: F ather: [...] [facility]. He worked in the [employer] in [facility]. 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 He has 2 sons Hugo Burnette. He is . He lives in [facility]. He is a . His blood type is A+. * Medications: T akingMetoprolol Succinate ER 50 MG Tablet Extended Release 24 Hour 1.5 tablets Orally Once a day Atorvastatin Calcium 10 MG Tablet TAKE 1 [...] 1.5 tablets Orally Once a day Taking Atorvastatin Calcium [...] Verified] Objective: * Vitals: H t: 64, Wt:203, BMI:34.84, BP:138/77, HR:58, Temp:97.4, Wt-k.08. * P ast Orders: Lab:Complete Blood Count [...] 0.000 (Ref Range: 0.0-0.012 X10*3/uL) * Lab:[facility] * Collection Date 12/02/2024 09/24/2024 07/14/2024 Collection [...] mg/dL) 9.4 (Ref Range: 8.4-10.2 mg/dL) * Lab:Lipid Panel [...] (Ref Range: mg/dL) 143 (Ref Range: mg/dL) ???Lab:Comprehensive Met. Panel (Order Date - 01/27/2025) (Collection Date & Time - 01/27/2025 07:40 AM)?ValueReference Range?Lefmpu354716-317 - mmol/L?Bilirubin Total0.50.0-1.0 - mg/dL?Aspartate Amino Ysznpspkirp974-81 - U/L?Alanine Aymnefscnweernnp688-17 - U/L?Total Protein6.76.5-8.0 - g/dL?Albumin Level3.93.5-5.0 - g/dL?Alkaline Wjxdjnnrpcb6840-282 - U/L?Potassium3.63.3-5.1 - mmol/L?Lcldlxfc646 96-108 - mmol/L?Carbon Ezbglsy9223-43 - mmol/L?Anion Ikq5155-13 - ?Blood Urea Pgbzakml67I3-65 - mg/dL?Creatinine0.950.5-1.4 - mg/dL ?Estimated Glomerular Filt Rate> 60-?Glucose Szabbj279P39-270 - mg/dL?Calcium9.28.4-10.2 - mg/dL * Examination: G eneral Examination: GENERAL APPEARANCE: p leasant, well nourished, well developed, in no acute distress, calm and relaxed. HEAD: a traumatic, normocephalic. EYES: e tab, [...] (Primary) N otes :He was admitted to [facility] January 07, 2025 with abdominal pain and bleeding found by CT scanning to be ischemic colitis of the splenic flexure and descending colon. He will be having a colonoscopy in the near future. He has been asymptomatic since discharge from the hospital. He has an appointment later this month with Dr. Ramirez at [facility] for a colonoscopy. 2 . O besity (BMI 30.0-34.9) - E66.9 N otes :He continues his efforts at weight loss. His weight is stable at 201 pounds with a body mass index of 33.9. We reviewed his weight loss strategy and detail. 3 . B PH (benign prostatic hyperplasia) - N40.0 N otes :We have discussed lifestyle modification sacred made to reduce nocturia. Currently he rises about once a night to urinate. 4 . M ixed hyperlipidemia - E78.2 N otes :His lipids are currently well controlled and no change in his regimen was made. 5 . P rediabetes - R73.03 N otes :His hemoglobin A1c is 6.4. His fasting glucose is 122. We have discussed weight loss and exercise and diet today. 6 . H istory of depression - Z86.59 N otes :His medication will be increased as needed. He is moderately depressed but stable and says the medication is benefiting him significantly. 7 . O ther obesity due to excess calories - E66.09 N otes :We have discharged weight loss strategies today. Plan: * Treatment: 2. B PH (benign prostatic hyperplasia) L AB: PROFILE, FASTING (COMPREHENSIVE METABOLIC) L AB: LIPID PANEL L AB: PSA, TOTAL L AB: CBC w DIFF 3. M ixed hyperlipidemia L AB: PROFILE, FASTING (COMPREHENSIVE METABOLIC) L AB: LIPID PANEL L AB: PSA, TOTAL L AB: CBC w DIFF 4. P rediabetes L AB: PROFILE, FASTING (COMPREHENSIVE METABOLIC) L AB: LIPID PANEL L AB: PSA, TOTAL L AB: CBC w DIFF * Procedure Codes: * Preventive Medicine: Counseling: [...] true * Provider: Lupis Rangel MD Date: 03/02/2025 Generated for Oliviai ng/Annag/eTransmitting on: 06/22/2025 10:24 AM EDT History and Physical [...]
--- OUTSIDE RECORDS SUMMARY | 2025-04-09 13:00 | XMS_ITS ---
Author Organization Elías Rangel III, MD Address [address] [place] [address] [place] [address] Care Team Providers Care Commercial Credit Specialist Name Role Phone Dr. Elías Rangel III Primary Care Provider REASON FOR VISIT Follow up Social History Sex Assigned At : Social History Observation Description Sex Assigned At Male Encounters Encounter Location Date Provider Diagnosis Elías Rangel III, MD [address] [place] [address] [place] [address] 04/09/2025 Elías Rangel Plan Of Treatment Next Appt Details Provider Name:Elías Rangel , 07/02/2025 10:30:00 AM, [address] [place] [address] [place], [address], Provider Name:Elías Rangel , 12/08/2025 02:00:00 PM, [address] [place] [address] [place], [address], Progress Notes * KORY ELI DDOB: [birth year] (80 yo M)Acc No.[id number]:04/09/2025 Progress Notes Patient: KORY MARRERO Provider: Lupis Rangel MD :1945 A ge:79 Y S ex:Male Date:04/09/2025 Address:[address] [place] [phone] Subjective: * Chief Complaints: * 1 . Follow up. * Medical History: Objective: * Vitals: Assessment: Plan: * Treatment: * Images: * The named appointment provid er may or may not be the originator of this progress note, and it is not deemed complete until electronically signed by the appointment provider. Sign off status: Pending * Provider: Lupis Rangel MD Date: 0 04/09/2025 Generated for Wilfredo ying/Axel/Nabor on: 06/22/2025 10:25 AM EDT
--- OUTSIDE RECORDS SUMMARY | 2025-06-22 10:24 | XMS_ITS | Encounter Summary ---
Author Organization [facility] Address [address] [place] [address] Phone Care Team Providers Care Exterminator Termite Name Role Phone Elías Rangel MD Primary Care Provider [phone] Encounter Details Date Type Department Care Team (Late st Contact Info) Description 01/07/2025 Procedure Pass [facility], Ct Scan - [facility] [address] [place] [address] Social History Tobacco Use Types Packs/Day Years Used Date Smoking Tobacco: Never Smokeless Tobacco: Never Alcohol Use Standard Drinks/Week Comments Never 0 (1 standard drink = 0.6 oz pur e alcohol) Education Answer Date Recorded Are you interested in more education? Not on ricky e 01/25/2023 Are you concerned about learning? Not on file 01/25/2023 No 01/25/2023 No 01/25/2023 Food Answer Date Recorded Within the past 6 months we worried whether our food would run out before we got money to buy more. Never True 01/07/2025 Within the past 6 months the food we bought just didn't last and we didn't have enough money to get more. Never True Residential Stability Answer Date Recor ded What is your housing situation today? I have yonny sing 01/07/2025 How many times have you move d in the past 12 months? Zero (I did not move) 01/07/2025 Paying for Meds Answer Date Recorded Do you have trouble paying for medicines? No 01/07/2025 Paying Utility Bills Answer Date Record ed Do you have trouble paying your heating or elect ricity bill? No 01/07/2025 Transportation Answer Date Recorded Has the lack of transportati on kept you from medical appointments or from getting medications? No 01/07/2025 Digital Access Answer Date Recorded Yes 01/07/2025 No 01/07/2025 Do you have reliable internet access at home? No 01/07/2025 Do you have a device (e.g., phone, tablet, computer) with a working camera? No 01/07/2025 Intimate Partner Violence Answer Date R ecorded Are you denied basic needs s uch as food, clothing, or medical care? No 01/07/2025 In the past 12 months have y ou been in a relationship with a person who hurts, threatens, or tries to control you? No 01/07/2025 Are you denied basic needs s uch as food, clothing, or medical care? No 01/07/2025 In the past 12 months have y ou been in a relationship with a person who hurts, threatens, or tries to control you? No 01/07/2025 Sex and Gender Information Value Date Recorded Sex Assigned at Male 03/12/2020 10:00 AM EDT Legal Sex Male 9:28 AM EDT Gender Identity Male 03/12/2020 10:00 AM EDT Sexual Orientation Straight 08/03/2024 4: 48 PM EST documented as of this encounter Functional Status * Calculated C-SSRS Risk Score (Lifetime/Recent) Answer Date of Assessment Author No Risk Indicated 01/07/2025 5:47 PM EDT Mally Murphy RN * [place] Suicide Severity Rating Scale (Screener/Recent Self-Report) Question Answer Date of Assessment Author 1. Wish to be (Past 1 Month) No 025 5:47 PM EDT Mally Murphy RN 2. Non-Specific Active Suici valeri Thoughts (Past 1 Month) No 01/07/2025 5:47 PM EDT Mally Murphy, ASHELY 6. Suicidal Behavior (Lifetime) No 5:47 PM EDT Mally Murphy RN documented as of this encounter Plan of Treatment Not on file documented as of this encounter Visit Diagnoses Not on filedocumented in this encounter Care Teams Exterminator Termite Relationship Specialty Start Date End Date Elías Rangel MD [address] [place] [address] PCP - General Medical Oncology 08/06/24 documented as of this encounter Additional Source Comments The information contained in this document represents components of the legal health record. It is not the complete legal health record.[facility]
--- OUTSIDE RECORDS SUMMARY | 2025-06-22 10:25 | XMS_ITS | Encounter Summary ---
Author Organization [facility] Address [address] [place] [address] Phone Care Team Providers Care Charger Operator Name Role Phone Ana Bullock MD Primary Care Provider [phone] Elías Rangel MD Primary Care Provider [phone] Encounter Details Date Type Department Care Team (Late st Contact Info) Description 03/12/2020 Procedure Pass [facility], Ct Scan - [address] [address] Social History Tobacco Use Types Packs/Day Years Used Date Smoking Tobacco: Never Smokeless Tobacco: Never Alcohol Use Standard Drinks/Week Comments Never 0 (1 standard drink = 0.6 oz pur e alcohol) Sex and Gender Information Value Date Recorded Sex Assigned at Male 03/12/2020 10:00 AM EDT Legal Sex Male 9:28 AM EDT Gender Identity Male 03/12/2020 10:00 AM EDT Sexual Orientation Straight 08/03/2024 4: 48 PM EST documented as of this encounter Functional Status documented as of this encounter Plan of Treatment Not on file documented as of this encounter Visit Diagnoses Not on filedocumented in this encounter Care Teams Charger Operator Relationship Specialty Start Date End Date Ana Bullock MD [address] [place] [address] PCP - General Internal Medicine 03/12/20 08/05/24 Elías Rangel MD [address] [place] [address] PCP - General Medical Oncology 08/06/24 documented as of this encounter Additional Source Comments The information contained in this document represents components of the legal health record. It is not the complete legal health record.[facility]
--- OUTSIDE RECORDS SUMMARY | 2025-06-22 10:25 | XMS_ITS | Encounter Summary ---
Author Organization [facility] Address [address] [place] [address] Phone Care Team Providers Care Laborer Demolition Name Role Phone Elías Rangel MD Primary Care Provider [phone] Encounter Details Date Type Department Care Team (Latest Contact Info) Description 03/01/2025 Transcribe Orders [facility] [address] [address] Opal Reyes PA [address] [place] [address] Colitis (Primary Dx); Hx of colonic polyps Social History Tobacco Use Types Packs/Day Years [...] PM EST documented as of this encounter Plan of Treatment Not on file documented as of this encounter Results * Ferritin (03/01/2025 8:22 AM EDT) FERRITIN 132 30 - 400 ug/L [facility] Blood 03/01/2025 8:22 AM EDT 03/01/2025 8:38 AM EDT us [facility] BLOOD ORDERABLES Final Result [address] [place] [address] * Iron and iron binding capacity (03/01/2025 8:22 AM EDT) IRON 106 45 - 160 ug/dL [facility] IRON BINDING CAPACITY 337 228 - 428 ug/dL [facility] TRANSFERRIN SATURAT. 31 20 - 55 % [facility] Blood 03/01/2025 8:22 AM EDT 03/01/2025 8:38 AM EDT us Op[facility] BLOOD ORDERABLES Final Result [address] [address] * CBC (03/01/2025 8:22 AM EDT) WBC 9.30 4.00 - 11.00 K/uL [facility] RBC 4.78 4.50 - 5.90 M/uL [facility] HGB 13.9 13.5 - 17.5 g/dL [facility] HCT 41.7 41.0 - 53.0 % [facility] PLT 252 150 - 450 K/uL [facility] MCV 87.2 80.0 - 100.0 [facility] MCH 29.1 27.0 - 31.0 pg [facility] MCHC 33.3 32.0 - 36.0 g/dL [facility] RDW 13.6 11.5 - 14.5 % [facility] MPV 11.6 8.4 - 12.0 [facility] NRBC 0.00 0.00 /100 WBCs [facility] ABSOLUTE NRBC 0.00 0.00 K/uL [facility] Blood 03/01/2025 8:22 AM EDT 03/01/2025 8:38 AM EDT us [facility] BLOOD ORDERABLES Final Result [address] [address] documented in this encounter Visit Diagnoses Diagnosis Colitis- Primary Other and unspecified noninfectious gastroenteritis and colitis Hx of colonic polyps Personal history of colonic polyps documented in this encounter Care Teams Laborer Demolition Relationship Specialty Start Date End Date Elías Rangel MD [address] [place] [address] PCP - General Medical Oncology 08/06/24 documented as of this encounter Additional Source Comments The information contained in this document represents components of the legal health record. It is not the complete legal health record.[facility]
--- OUTSIDE RECORDS SUMMARY | 2025-06-22 10:25 | XMS_ITS | Encounter Summary ---
Author Organization [facility] Address [address] [place] [address] Phone Care Team Providers Care Leather Staker Name Role Phone Ana Bullock MD Primary Care Provider [phone] Elías Rangel MD Primary Care Provider [phone] Encounter Details Date Type Department Care Team (Late st Contact Info) Description 03/14/2020 Procedure Pass [facility] Endoscopy Admitting Dept Virtual Department [address] [place] [address] Social History Tobacco Use Types Packs/Day Years [...] on filedocumented in this encounter Care Teams Leather Staker Relationship Specialty Start Date End Date Ana Bullock MD [address] [place] [address] PCP - General Internal Medicine 03/12/20 08/05/24 Elías Rangel MD [address] [place] [address] PCP - General Medical Oncology 08/06/24 documented as of this encounter Additional Source Comments The information contained in this document represents components of the legal health record. It is not the complete legal health record.[facility]
--- OUTSIDE RECORDS SUMMARY | 2025-06-22 10:26 | XMS_ITS | Clinical Summary ---
Author Organization [facility] Address [address] [place] [id number] Phone Care Team Providers Care Vacuum Conditioner Operator Name Role Phone Elías Rangel MD Primary Care Provider [phone] Allergies Active Allergy Reactions Criticality Noted Date Comments Amoxicillin 03/12/2020 Penicillins 03/12/2020 Simvastatin 03/12/2020 Medications lisinopril (PRINIVIL,ZESTRI L) 40 MG tablet Take 40 mg by mouth daily. Active omeprazole (PRILOSEC) 20 mg TbEC Take 20 mg by mouth 2 (two) times a day. Active coenzyme Q10 100 mg capsule Take 100 mg by mouth daily. Active metoprolol succinate (TOPROL-XL) 50 MG 24 hr tablet Take 75 mg by mouth daily. Active amitriptyline (ELAVIL) 25 MG tablet Take 25 mg by mouth nightly at bedtime. Active atorvastatin (LIPITOR) 10 MG tablet Take 10 mg by mouth 3 (three) times a week on Saturday, Saturday, Saturday. At night Active aspirin 81 MG EC tablet Take 81 mg by mouth daily. Active cholecalciferol (VITAMIN D3) 2,000 unit tablet Take 2,000 Units by mouth 2 (two) times a day. Active acetaminophen (TYLENOL) 325 mg tablet Take 650 mg by mouth as needed for mild pain. Active hydrocortisone acetate (ANUSOL-HC) [address] 25 mg rectally 2 (two) times a day as needed for hemorrhoid discomfort. Active hydroCHLOROthiaz pricila 25 MG tablet Take 25 mg by mouth daily. Active Active Problems Problem Noted Date Diagnosed Date Ischemic colitis 01/07/2025 Assessment & Plan (01/09/2025 10:32 AM EDT): Presented to the ED with rectal bleeding and crampy abdominal pain, similar to prior hospitalization in [address] abdomen/pelvis showing acute colitis involving the splenic flexure and descending colon consistent with ischemia given watershed involvement No fever or leukocytosis. Abdominal exam today is benign. He is tolerating a diet --Continue LR diet and observation off antibiotic -- Monitoring stooling (now with collection hat in the bathroom). Will continue to trend fever curve, white blood cell count etc. -- If he continues to improve, plan discharge tomorrow and outpatient follow-up with GI Assessment & Plan (01/07/2025 11:55 PM EDT): Given empiric ciprofloxacin and metronidazole in the emergency department. He is afebrile with no leukocytosis or other signs of infection. Will hold off on empiric antibiotics. Will give IV fluids with as needed pain medications. Will hold diuretics. Impaired glucose tolerance 01/07/2025 Assessment & Plan (01/08/2025 1:56 PM EDT): Continue sliding scale insulin Assessment & Plan (01/07/2025 11:55 PM EDT): Will give as needed lispro. Bilateral hearing loss 03/14/2020 Assessment & Plan (03/14/2020 10:44 AM EDT): Significant hearing loss noted, more difficult with masks. Hyponatremia 03/12/2020 Assessment & Plan (03/14/2020 10:35 AM EDT): Patient noted to have a sodium level of 120 on admission. Unclear baseline. His primary care physician is Dr. Bullock in [facility]. Patient was recently restarted on combination hydrochlorothiazide/lisinopril. Most likely cause is due to dehydration and the hydrochlorothiazide which is consistent with a urine sodium of 37 and serum osmolality of 257. Patient continued on IV fluids with a repeat sodium after 24 hours 124, and this morning up to 129. -Continue hydrochlorothiazide -Continue IV fluids while NPO, then advance diet post procedure and DC IV fluids when oral intake is adequate. -Repeat labs in the morning Essential hypertension 03/12/2020 Assessment & Plan (01/08/2025 1:56 PM EDT): Hold diuretic. Continue other antihypertensives. Assessment & Plan (01/07/2025 11:55 PM EDT): Hold diuretic. Continue other antihypertensives. Assessment & Plan (03/14/2020 10:44 AM EDT): Home regimen prior to admission: lisinopril 20 mg plus lisinopril/hydrochlorothiazide 20/25 mg daily and metoprolol 50 mg. Patient reported that he recently was restarted on lisinopril/HCTZ approximately 1 month ago. -Hydrochlorothiazide held due to hyponatremia which is now improving -Continue lisinopril and metoprolol home doses. Feeling lightheaded today after bowel prep. Vital signs stable with systolic blood pressure in the 130s. -Monitor vital signs closely -We will check EKG prior to his procedure Hypercholesteremia 03/12/2020 Assessment & Plan (03/14/2020 10:44 AM EDT): Continue home dose of atorvastatin 10mg M/W/, and coenzyme Q 10. Family History Medical History Relation Comments Diabetes Father Hypertension Father Relation Status Comments Father Social History Tobacco Use Types Packs/Day Years [...] your housing situation today? I have yonny hurtado 01/07/2025 How many times have you move [...] Orientation Straight 08/03/2024 4: 48 PM EST Last Filed Vital Signs Vital Sign Reading Time Taken Comments Blood Pressure 118/76 01/09/2025 7:54 AM EDT Pulse 62 01/09/2025 7:54 AM EDT Temperature 36 C (96.8 F) 01/09/2025 7:54 AM EDT Respiratory Rate 18 01/09/2025 7:54 AM EDT Oxygen Saturation 91% 01/09/2025 7:54 AM EDT Inhaled Oxygen Concentration - - Weight 90.5 kg (199 lb 8 oz) 01/08/2025 12:10 AM EDT Height 162.6 cm (5' 4 ) 01/07/2025 5:46 PM EDT Body Mass Index 34.24 01/07/2025 5:46 PM EDT Plan of Treatment Health Maintenance Due Date Last Done Comments BLOOD PRESSURE 1946 LIPID PANEL 1946 DEPRESSION SCREENING 1958 HEPATITIS C SCREENING 1964 ZOSTER VACCINES (1 of 2) 1996 RSV VACCINE (1 - 1-dose 75+ series) 2021 INFLUENZA VACCINE (#1) 2025 08/01/2009 COVID-19 VACCINE (2024- season) 2025 09/14/2021, 01/09/2021 CREATININE LEVEL 01/09/2026 01/09/2025, 07/2025, 01/07/2025, Additional history exists POTASSIUM LEVEL 01/09/2026 01/09/2025, 12/29, 01/07/2025, Additional history exists Adult Td,Tdap Booster 01/01/2027 01/01/2017, 006 PNEUMOCOCCAL VACCINES (50+ years) Completed 08/05/2015, 06/24/2014 SMOKING STATUS SCREENING (Once After 26 Yrs) Completed 08/06/2024 HEPATITIS A VACCINES Aged Out No long er eligible based on patient's age to complete this topic HIB VACCINES Aged Out No longer eligi ble based on patient's age to complete this topic MENINGOCOCCAL VACCINES (ACWY) Aged Out No longer eligible based on patient's age to complete this topic MENINGOCOCCAL VACCINES (B) Aged Out N o longer eligible based on patient's age to complete this topic Medical Devices Not on file Procedures Procedure Name Priority Date/Time Associated Diagnosis Comments BASIC METABOLIC PANEL Timed 01/09/2025 12:32 PM EDT from Last 3 Months or Most Recently Relevant to Health Maintenance Results * (ABNORMAL) Basic metabolic panel (01/09/2025 12:32 PM EDT) SODIUM 137 133 - 146 mmol/L [facility] CHLORIDE 101 96 - 108 mmol/L [facility] POTASSIUM 3.9 3.3 - 5.1 mmol/L [facility] CO2 27 21 - 35 mmol/L [facility] BUN 15 6 - 19 mg/dL [facility] CREATININE 0.90 0.5 - 1.5 mg/dL [facility] GLUCOSE 117(H) 70 - 99 mg/dL [facility] CALCIUM 9.0 8.4 - 10.3 mg/dL [facility] EGFR 87 >59 mL/min/1.7 3m2 [facility] Comment:Estimated glomerular filtration rate calculated using the CKD-EPI refit equation. ANION GAP 13 10 - 20 mmol/L [facility] Blood 01/09/2025 12:3 2 PM EDT 01/09/2025 12:37 PM EDT us Carly Suazo MD LAB BLOOD ORDERABLES Final Resu lt [address] [id number] from Last 3 Months or Most Recently Relevant to Health Maintenance Insurance [place] [id number] [place] [employer] MEDEX SUPPLEMENT MEDICARE PART A & B [email or web address] MEDEX SUPPLEMENT MEDICARE PART A & B [email or web address] MEDEX SUPPLEMENT MEDICARE PART A & B [email or web address] MEDEX SUPPLEMENT MEDICARE PART A & B [email or web address] MEDEX SUPPLEMENT MEDICARE PART A & B [email or web address] MEDEX SUPPLEMENT MEDICARE PART A & B [employer] MEDEX SUPPLEMENT MEDICARE PART A & B [employer] MEDEX SUPPLEMENT MEDICARE PART A & B [employer] MEDEX SUPPLEMENT Advance Directives For more information, please contact: [phone] (9AM - 5PM [facility], Saturday-Saturday) Documents on File Type Date Recorded Patient Machine Hose Cutter Expl anation Healthcare Proxy 01/11/2025 5:14 PM * Full Code (Latest Code Status on File) Date Activated Date Inactivated Comments 01/08/2025 12:24 AM Question Answer Comments Code Status Confirmed With: Patient * DNR/DNI (No CPR/No Intubation) Date Activated Date Inactivated Comments 03/12/2020 3:32 PM 01/08/2025 12:24 AM Question Answer Comments Code Status Confirmed With: Patient Care Teams Vacuum Conditioner Operator Relationship Specialty Start Date End Date Elías Rangel MD [address] [place] [id number] PCP - General Medical Oncology 08/06/24 Additional Source Comments The information contained in this document represents components of the legal health record. It is not the complete legal health record.[facility]
--- OUTSIDE RECORDS SUMMARY | 2025-06-22 10:26 | XMS_ITS | Patient Health Record ---
Author Organization Elías Rangel III, MD Address [address] [place] [address] Care Team Providers [employer] Architect Name Role Phone Dr. Elías Rangel III Primary Care Provider [phone] Allergies Allergen (clinical drug ingredient) Drug/Non Drug Allergy documented on EMR Reaction Allergy Type Onset Date Status penicillin G Penicillin G Sodium Unknown Drug Allergy Active Results Component Value Reference Range Notes Complete Blood Count Auto Di ff Reviewed date:07/14/2024 11:38:15 AM Interpretation: Performing Lab:[facility], [address] [place] [phone] Notes/Report: White Blood Count 8.6 4.8-10.8 X10*3/uL [...] NRBC Abs Auto 0.000 0.0-0.012 X10*3/uL Comprehensive [facility]. Panel Fa st Reviewed date:07/14/2024 11:38:15 AM Interpretation: Performing Lab:[facility], [address] [place] [phone] Notes/Report: Sodium 136 135-145 mmol/L Potassium 4.0 3.3-5.1 mmol/L Chloride 102 96-108 mmol/L Carbon Dioxide 28 22-29 mmol/L Anion Gap 10 12-20 Blood Urea Nitrogen 19 9-16 mg/dL Creatinine 1.12 0.5-1.4 mg/dL Estimated Glomerular Filt Rate > 60 NOTE: For -Hungarian individuals, multiply the result by 1.210. Chronic [...] Panel Reviewed date:07/14/2024 11:38:15 AM Interpretation: Performing Lab:[facility], [address] [place] [phone] Notes/Report: Triglycerides 142 <150 mg/dL Desirable Triglyceride: [...] A1c Reviewed date:07/14/2024 11:38:15 AM Interpretation: Performing Lab:[address] [phone] Notes/Report: Hemoglobin A1c % 6.6 <6.0 % [...] average glucose, using the formula of the [id number] Average Glucose study (ADAG), Diabetes Care, Vol.31,#8, Apr. 2007 Lipid Panel Reviewed date:09/24/2024 05:34:19 PM Interpretation: Performing Lab:[facility], [address] [place] [phone] Notes/Report: Triglycerides 152 <150 mg/dL Desirable Triglyceride: [...] A1c Reviewed date:09/24/2024 05:34:19 PM Interpretation: Performing Lab:[facility], [address] [place] [phone] Notes/Report: Hemoglobin A1c % 6.3 <6.0 % [...] average glucose, using the formula of the [id number]-Yjprhdp Average Glucose study (ADAG), Diabetes Care, Vol.31,#8, Apr. 2007 Complete Blood Count Auto Di ff Reviewed date:09/24/2024 05:34:19 PM Interpretation: Performing Lab:[facility], [address] [place] [phone] Notes/Report: White Blood Count 6.8 4.8-10.8 X10*3/uL [...] NRBC Abs Auto 0.000 0.0-0.012 X10*3/uL Comprehensive [facility]oman. Panel Fa st Reviewed date:09/24/2024 05:34:19 PM Interpretation: Performing Lab:[address] [phone] Notes/Report: Sodium 138 135-145 mmol/L Potassium 3.8 [...] Antigen Reviewed date:09/24/2024 05:34:19 PM Interpretation: Performing Lab:[address] [phone] Notes/Report: Prostate Specific Antigen 0.53 <0.05-4.0 ng/mL PSA methodology: Franco Alinity i Chemiluminescent Microparticle Immunoassay (CMIA) Complete Blood Count Auto Di ff Reviewed date:12/03/2024 08:49:01 PM Interpretation: Performing Lab:[facility], [address] [place] [phone] Notes/Report: White Blood Count 7.8 4.8-10.8 X10*3/uL Red Blood Count 4.62 4.60-5.80 X10*6/uL Hemoglobin 14.1 14.0-18.0 g/dl Hematocrit 41.2 42.0-52.0 % Mean Corpuscular Volume 89.2 80.0-98.0 fL Mean Corpuscular Hemoglobin 30.5 27.0-33.0 pg Mean Corpuscular HGB Conc 34.2 31.0-36.0 g/dl Red Cell Distribution Width 12.1 11.0-16.0 % Platelet Count 239 160-400 X10*3/uL Mean Platelet Volume 10.9 9.4-12.4 fL Neutrophils Percent Auto 58.9 45-73 % Imm Gran Pct Auto 0.5 0.0-0.4 % Lymphocytes Percent Auto 30.0 20-40 % Monocytes Percent Auto 8.5 2-11 % Eosinophils Percent Auto 1.7 0-4 % Basophils Percent Auto 0.4 0-2 % NRBC Pct Auto 0.0 0.0-0.2 /100WBC Neutrophils Absolute Auto 4.6 2.0-8.3 x10*3/u L Imm Gran Abs Auto 0.04 0.00-0.03 X10*3/uL Lymphocytes Absolute Auto 2.4 1.2-4.9 X10*3/u L Monocytes Absolute Auto 0.7 0.1-1.2 X10*3/uL Eosinophils Absolute Auto 0.1 0.0-0.4 X10*3/u L Basophils Absolute Auto 0.0 0.0-0.2 X10*3/uL NRBC Abs Auto 0.000 0.0-0.012 X10*3/uL Comprehensive [facility]oman. Panel Fa st Reviewed date:12/03/2024 08:49:01 PM Interpretation: Performing Lab:[facility], [address] [place] [phone] Notes/Report: Sodium 138 135-145 mmol/L Potassium 3.6 3.3-5.1 mmol/L Chloride 104 96-108 mmol/L Carbon Dioxide 27 22-29 mmol/L Anion Gap 11 12-20 Blood Urea Nitrogen 21 9-16 mg/dL Creatinine 0.89 0.5-1.4 mg/dL Estimated Glomerular Filt Rate > 60 Chronic Kidney Disease: Estimated GFR < 60 mL/min/1.73m2 Severe Kidney Disease: Estimated GFR < 15 mL/min/1.73m2 Glucose Fasting 122 60-99 mg/dL A fasting glucose from 100-125 mg/dl is considered impaired (pre-diabetes). Calcium 8.9 8.4-10.2 mg/dL Bilirubin Total 0.6 0.0-1.0 mg/dL Aspartate Amino Transferase 25 5-37 U/L Alanine Aminotransferase 28 0-40 U/L Total Protein 7.0 6.5-8.0 g/dL Albumin Level 3.8 3.5-5.0 g/dL Alkaline Phosphatase 53 39-117 U/L Lipid Panel Reviewed date:12/03/2024 08:49:01 PM Interpretation: Performing Lab:[address] [phone] Notes/Report: Triglycerides 108 <150 mg/dL Desirable Triglyceride: less than 150 mg/dL Borderline High Triglyceride 150-199 mg/dL High Triglyceride: 200-499 mg/dL Very High Triglyceride: greater than or equal to 5OO mg/dL Cholesterol 108 <200 mg/dL Desirable Cholesterol: less than 200 mg/dL Borderline High Cholesterol: 200-239 mg/dL High Cholesterol: greater than 239 mg/dL LDL Cholesterol Calculated 64 <100 mg/dL Desirable LDL: less than 100 mg/dL Near Optimal/Above Optimal LDL: 110-129 mg/dL Borderline High LDL: 130-159 mg/dL High LDL: 160-189 mg/dL Very High LDL: greater than or equal to 190 mg/dL HDL Cholesterol 23 >40 mg/dL Desirable HDL: greater than 40 mg/dL Note: This HDL assay may give artificially low results in patients with liver disease. Hemoglobin A1c Reviewed date:12/03/2024 08:49:01 PM Interpretation: Performing Lab:[address] [phone] Notes/Report: Hemoglobin A1c % 6.4 <6.0 % Hemoglobin A1C Reference Range Adults: 4.8 - 6.0 % Non diabetic: < 6.0 % Goal: < 7.0 % Additional Action Suggested: > 8.0 % Note: Hemoglobin A1c results are invalid for patients with abnormal amounts of HbF. Blood transfusions may impact the HbA1c concentration in the patient sample. Estimated Average Glucose 137 eAG = Estimated average glucose which is %A1C expressed as average glucose, using the formula of the [id number]-[id number] Average Glucose study (ADAG), Diabetes Care, Vol.31,#8, Apr. 2007 Complete Blood Count Auto Di ff Reviewed date:02/02/2025 10:05:38 AM Interpretation: Performing Lab:[facility], [address] [place] [phone] Notes/Report: White Blood Count 7.8 4.8-10.8 X10*3/uL Red Blood Count 4.77 4.60-5.80 X10*6/uL Hemoglobin 13.6 14.0-18.0 g/dl Hematocrit 41.4 42.0-52.0 % Mean Corpuscular Volume 86.8 80.0-98.0 fL Mean Corpuscular Hemoglobin 28.5 27.0-33.0 pg Mean Corpuscular HGB Conc 32.9 31.0-36.0 g/dl Red Cell Distribution Width 13.2 11.0-16.0 % Platelet Count 269 160-400 X10*3/uL Mean Platelet Volume 11.3 9.4-12.4 fL Neutrophils Percent Auto 57.7 45-73 % Imm Gran Pct Auto 0.8 0.0-0.4 % Lymphocytes Percent Auto 30.8 20-40 % Monocytes Percent Auto 8.0 2-11 % Eosinophils Percent Auto 2.3 0-4 % Basophils Percent Auto 0.4 0-2 % NRBC Pct Auto 0.0 0.0-0.2 /100WBC Neutrophils Absolute Auto 4.5 2.0-8.3 x10*3/u L Imm Gran Abs Auto 0.06 0.00-0.03 X10*3/uL Lymphocytes Absolute Auto 2.4 1.2-4.9 X10*3/u L Monocytes Absolute Auto 0.6 0.1-1.2 X10*3/uL Eosinophils Absolute Auto 0.2 0.0-0.4 X10*3/u L Basophils Absolute Auto 0.0 0.0-0.2 X10*3/uL NRBC Abs Auto 0.000 0.0-0.012 X10*3/uL Comprehensive Met. Panel Reviewed date:02/02/2025 10:05:38 AM Interpretation: Performing Lab:[facility], [address] [place] [phone] Notes/Report: Sodium 136 135-145 mmol/L Potassium 3.6 3.3-5.1 mmol/L Chloride 102 96-108 mmol/L Carbon Dioxide 26 22-29 mmol/L Anion Gap 12 12-20 Blood Urea Nitrogen 23 9-16 mg/dL Creatinine 0.95 0.5-1.4 mg/dL Estimated Glomerular Filt Rate > 60 Chronic Kidney Disease: Estimated GFR < 60 mL/min/1.73m2 Severe Kidney Disease: Estimated GFR < 15 mL/min/1.73m2 Glucose Random 139 60-115 mg/dL Calcium 9.2 8.4-10.2 mg/dL Bilirubin Total 0.5 0.0-1.0 mg/dL Aspartate Amino Transferase 25 5-37 U/L Alanine Aminotransferase 36 0-40 U/L Total Protein 6.7 6.5-8.0 g/dL Albumin Level 3.9 3.5-5.0 g/dL Alkaline Phosphatase 58 39-117 U/L Reason For Referral No Information Medications Medication [...] morning meal Orally Once a day Active Metoprolol Succinate ER 50 MG 1.5 tablet s Orally Once a day Active Atorvastatin Calcium 10 MG TAKE 1 TABLET BY MOUTH ONCE EVERY SATURDAY, SATURDAY AND SATURDAY FOR 90 DAYS Active Amitriptyline HCl 25 MG TAKE 1 TABLET BY MOUTH AT BEDTIME Active hydroCHLOROthiazide 25 MG 1 tablet in e morning Orally Once a day Active Lisinopril 40 MG Take 1 tablet by martín once daily Active Immunizations Vaccine Route Administration Date Status Comme nts Influenza no Preserv 3 and > Unknown 08/01/2009 Adminis tered PPV 23 Unknown 06/24/2014 Administered PCV13 Unknown 08/05/2015 Administered Tetanus and Diphtheria Toxoi ds Adsorbed Unknown 01/01/2017 Administered Tdap Unknown 06/10/2006 Administered COVID 19 Moderna Unknown 09/14/2021 Administered COVID 19 Silverio Unknown 01/09/2021 Administered Social History Tobacco Use: Social History [...] Problem Status W/U Status Risk Notes Problem [id number] Obesity (BMI 30.0-34.9) (E66.9) Active confirmed He continues his efforts at weight loss. His weight is stable at 201 pounds with a body mass index of 33.9. We reviewed his weight loss strategy and detail. Problem [id number] Other obesity due to excess calories (E66.09) Active confirmed We have discharged weight loss strategies today. Problem [id number] Mixed hyperlipidemia (E78.2) Active confirmed His lipids are currently well controlled and no change in his regimen was made. Problem Benign prostatic hyperplasia (791007879) BPH (benign prostatic hyperplasia) (N40.0) Active confirmed We have discussed lifestyle modification sacred made to reduce nocturia. Currently he rises about once a night to urinate. Problem 12065472 Essential hypertension (I10) Active confirmed His blood pressure is stable. We have discussed aggressive weight loss and sodium restriction. He did not wish to take more medication att this time. He'll be seen back in the near future for follow-up and lifestyle modification. He is considering whether he wants to take oral medication. He is coming back to the office in the future for another blood pressure. Problem 24778805 Vitamin D deficiency (E55.9) Active confirmed His vitamin D level is 154. The calcium was normal at 9.1. I have reduced his vitamin D level to 1000 units daily. Problem 252790306 Prediabetes (R73.03) Active confirmed His hemoglobin A1c is 6.4. His fasting glucose is 122. We have discussed weight loss and exercise and diet today. Problem 337005288 History of depression (Z86.59) Active confirmed His medication will be increased as needed. He is moderately depressed but stable and says the medication is benefiting him significantly . Problem 49485944 Ischemic colitis (K55.9) Active confirmed He was admitted to [facility] January 07, 2025 with abdominal pain and bleeding found by CT scanning to be ischemic colitis of the splenic flexure and descending colon. He will be having a colonoscopy in the near future. He has been asymptomatic since discharge from the hospital. He has an appointment later this month with Dr. Ramirez at [facility] for a colonoscopy. 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 Problem [id number] Obesity, class 1 (E66.811) Active confirmed Vital Signs Heart Rate 58 /min 03/02/2025 Temperature 97.4 degrees Fahrenheit 03/02/2025 Blood pressure diastolic 77 mm Hg 03/02/2025 Height 64 in 03/02/2025 Blood pressure systolic 138 mm Hg 03/02/2025 Weight 203 lbs 03/02/2025 BMI 34.84 kg/m2 03/02/2025 Encounters Encounter Location Date Provider Diagnosis Elías Rangel III, MD [address] [place] [address] [place] [address] 07/20/2024 Elías Rangel Obesity (BMI 30.0-34 .9) E66.9 ; Essential hypertension I10 ; Mixed hyperlipidemia E78.2 ; History of depression Z86.59 ; BPH (benign prostatic hyperplasia) N40.0 and Prediabetes R73.03 Elías Rangel III, MD [address] [place] [address] [place] [address] 09/24/2024 Elías Rangel Obesity (BMI 30.0-34 .9) E66.9 ; Essential hypertension I10 ; Mixed hyperlipidemia E78.2 ; BPH (benign prostatic hyperplasia) N40.0 ; Prediabetes R73.03 and History of depression Z86.59 Elías Rangel III, MD [address] [place] [address] [place] [address] 12/07/2024 Elías Rangel Obesity (BMI 30.0-34 .9) E66.9 ; Mixed hyperlipidemia E78.2 ; Essential hypertension I10 ; BPH (benign prostatic hyperplasia) N40.0 ; History of depression Z86.59 and Prediabetes R73.03 Elías Rangel III, MD [address] [place] [address] [place] [address] 01/19/2025 Elías Reynoldsrne Obesity (BMI 30.0-34 .9) E66.9 ; Ischemic colitis K55.9 ; Mixed hyperlipidemia E78.2 ; History of depression Z86.59 ; Essential hypertension I10 ; BPH (benign prostatic hyperplasia) N40.0 and Prediabetes R73.03 Elías Rangel III, MD [address] [place] [address] [place] [address] 02/02/2025 Elías Reynoldsrne Obesity (BMI 30.0-34 .9) E66.9 ; Ischemic colitis K55.9 ; Essential hypertension I10 ; Mixed hyperlipidemia E78.2 ; History of depression Z86.59 ; BPH (benign prostatic hyperplasia) N40.0 and Prediabetes R73.03 Elías Rangel III, MD [address] [place] [address] [place] [address] 03/02/2025 Elías Reynoldsrne Obesity (BMI 30.0-34 .9) E66.9 ; Ischemic colitis K55.9 ; BPH (benign prostatic hyperplasia) N40.0 ; Mixed hyperlipidemia E78.2 ; Prediabetes R73.03 ; History of depression Z86.59 and Other obesity due to excess calories E66.09 Elías Rangel III, MD [address] [place] [address] [place] [address] 09/16/2024 Elías Aguirrene Obesity (BMI 30.0-34 .9) E66.9 Assessments Encounter [...] near future for follow-up and lifestyle modification. 12/07/2024 Obesity (BMI 30.0-34.9) (ICD-10 - E66.9) He continues his efforts at weight loss. His weight is stable at 201 pounds with a body mass index of 34.5. We reviewed his weight loss strategy and detail. 12/07/2024 Mixed hyperlipidemia (ICD-10 - E78.2) His lipids are currently stable and no change in his regimen was needed. 01/19/2025 Obesity (BMI 30.0-34.9) (ICD-10 - E66.9) He continues his efforts at weight loss. His weight is stable at 201 pounds with a body mass index of 33.9. We reviewed his weight loss strategy and detail. 01/19/2025 Ischemic colitis (ICD-10 - K55.9) He was admitted to [facility] January 07, 2025 with abdominal pain and bleeding found by CT scanning to be ischemic colitis of the splenic flexure and descending colon. He will be having a colonoscopy in the neear future. He has been asymptomatic since discharge from the hospital. 02/02/2025 Obesity (BMI 30.0-34.9) (ICD-10 - E66.9) He continues his efforts at weight loss. His weight is stable at 201 pounds with a body mass index of 33.9. We reviewed his weight loss strategy and detail. 02/02/2025 Ischemic colitis (ICD-10 - K55.9) He was admitted to [facility] January 07, 2025 with abdominal pain and bleeding found by CT scanning to be ischemic colitis of the splenic flexure and descending colon. He will be having a colonoscopy in the near future. He has been asymptomatic since discharge from the hospital. He has an appointment later this month with Dr. Ramirez at [facility] for a colonoscopy. 03/02/2025 Obesity (BMI 30.0-34.9) (ICD-10 - E66.9) He continues his efforts at weight loss. His weight is stable at 201 pounds with a body mass index of 33.9. We reviewed his weight loss strategy and detail. 03/02/2025 Ischemic colitis (ICD-10 - K55.9) He was admitted to [facility] January 07, 2025 with abdominal pain and bleeding found by CT scanning to be ischemic colitis of the splenic flexure and descending colon. He will be having a colonoscopy in the near future. He has been asymptomatic since discharge from the hospital. He has an appointment later this month with Dr. Ramirez at [facility] for a colonoscopy. 09/16/2024 Obesity (BMI 30.0-34.9) (ICD-10 - E66.9) He has lost 5 pounds. We discussed his weight loss strategy at length. He will try to lose weight at a rate of one half of a pound per week through a diet restricted in fat calories and sodium combined with regular exercise. 07/20/2024 Mixed hyperlipidemia (ICD-10 - E78.2) He is tolerating the atorvastatin well. No change in his regimen was needed today. 09/24/2024 Mixed hyperlipidemia (ICD-10 - E78.2) His lipids are currently well controlled and no change in his regimen as necessary. 12/07/2024 Essential hypertension (ICD-10 - I10) His [...] the future for another blood pressure. 01/19/2025 Mixed hyperlipidemia (ICD-10 - E78.2) His lipids are currently stable and will be checked 3 times a year. 02/02/2025 Essential hypertension (ICD-10 - I10) His [...] in the future for another blood pressure. 03/02/2025 BPH (benign prostatic hyperplasia) (ICD-10 - N40.0) We have discussed lifestyle modification sacred made to reduce nocturia. Currently he rises about once a night to urinate. 07/20/2024 History of depression (ICD-10 - Z86.59) His medication will be increased as needed. He is moderately depressed but stable and says the medication is benefiting him significantly. 09/24/2024 BPH (benign prostatic hyperplasia) (ICD-10 - N40.0) He rises from sleep once or twice a night to urinate. We have discussed lifestyle modifications he could make to reduce nocturia. 12/07/2024 BPH (benign prostatic hyperplasia) (ICD-10 - N40.0) He rises from sleep once or twice a night to urinate. We have discussed lifestyle modifications he could make to reduce nocturia. 01/19/2025 History of depression (ICD-10 - Z86.59) His medication will be increased as needed. He is moderately depressed but stable and says the medication is benefiting him significantly. 02/02/2025 Mixed hyperlipidemia (ICD-10 - E78.2) His lipids are currently stable and will be checked 3 times a year. 03/02/2025 Mixed hyperlipidemia (ICD-10 - E78.2) His lipids are currently well controlled and no change in his regimen was made. 07/20/2024 BPH (benign prostatic hyperplasia) (ICD-10 - N40.0) He arises from sleep once or twice a night to urinate. We discussed lifestyle modification as a way to reduce nocturnal urinating. 09/24/2024 Prediabetes (ICD-10 - R73.03) His fasting glucose once again is elevated at 124. His weight is stable. His hemoglobin A1c is 6.6. I have ordered a hemoglobin additional labs prior to his next visit. 12/07/2024 History of depression (ICD-10 - Z86.59) His [...] the future for another blood pressure. 02/02/2025 History of depression (ICD-10 - Z86.59) His medication will be increased as needed. He is moderately depressed but stable and says the medication is benefiting him significantly. 03/02/2025 Prediabetes (ICD-10 - R73.03) His hemoglobin A1c is 6.4. His fasting glucose is 122. We have discussed weight loss and exercise and diet today. 07/20/2024 Prediabetes (ICD-10 - R73.03) His fasting glucose with medication is 134 with a hemoglobin A1c of 6.6. We discussed his diagnosis today, whether he has prediabetes are diet controlled adult onset type II. These values will be repeated prior to his next visit and if indicated the diagnosis will be upgraded. 09/24/2024 History of depression (ICD-10 - Z86.59) His medication will be increased as needed. He is moderately depressed but stable and says the medication is benefiting him significantly. 12/07/2024 Prediabetes (ICD-10 - R73.03) His fasting glucose once again is elevated at 122. His weight is stable. His hemoglobin A1c is 6.4. I have ordered a hemoglobin additional labs prior to his next visit. 01/19/2025 BPH (benign prostatic hyperplasia) (ICD-10 - N40.0) He rises from sleep once or twice a night to urinate. We have discussed lifestyle modifications he could make to reduce nocturia. 02/02/2025 BPH (benign prostatic hyperplasia) (ICD-10 - N40.0) He rises from sleep once or twice a night to urinate. We have discussed lifestyle modifications he could make to reduce nocturia. 03/02/2025 History of depression (ICD-10 - Z86.59) His medication will be increased as needed. He is moderately depressed but stable and says the medication is benefiting him significantly. 01/19/2025 Prediabetes (ICD-10 - R73.03) His most recent glucose in the hospital was 114. A hemoglobin A1c is pending. 02/02/2025 Prediabetes (ICD-10 - R73.03) His hemoglobin A1c is 6.4. His fasting glucoses between 139 and 122. We are calling this prediabetes and the recommendation is aggressive weight loss and a diabetic diet. 03/02/2025 Other obesity due to excess calories (ICD-10 - E66.09) We have discharged weight loss strategies today. Plan Of Treatment Pending Test Test Name Order Date PROFILE, FASTING (COMPREHENSIVE METABOLI C) 04/06/2024 PROFILE, FASTING (COMPREHENSIVE METABOLI C) 02/06/2021 PROFILE, FASTING (COMPREHENSIVE METABOLI C) 11/08/2020 PROFILE, FASTING (COMPREHENSIVE METABOLI C) 03/02/2025 PROFILE, FASTING (COMPREHENSIVE METABOLI C) 09/13/2021 PROFILE, FASTING (COMPREHENSIVE METABOLI C) 12/07/2024 PROFILE, FASTING (COMPREHENSIVE METABOLI C) 12/06/2023 PROFILE, FASTING (COMPREHENSIVE METABOLI C) 06/14/2021 PROFILE, FASTING (COMPREHENSIVE METABOLI C) 05/20/2023 PROFILE, FASTING (COMPREHENSIVE METABOLI C) 09/24/2024 PROFILE, FASTING (COMPREHENSIVE METABOLI C) 05/14/2022 PROFILE, RANDOM (COMPREHENSIVE METABOLIC ) 01/15/2022 PROFILE, RANDOM (COMPREHENSIVE METABOLIC ) 01/19/2025 LIPID PANEL 01/15/2022 LIPID PANEL 02/06/2021 LIPID PANEL 11/08/2020 LIPID PANEL 03/02/2025 LIPID PANEL 05/20/2023 PSA, TOTAL 05/20/2023 PSA, TOTAL 09/13/2021 PSA, TOTAL 11/08/2020 PSA, TOTAL 03/02/2025 PSA, TOTAL 09/24/2024 PSA, TOTAL 05/14/2022 CBC w DIFF 01/19/2025 CBC w DIFF 05/14/2022 CBC w DIFF 05/20/2023 CBC w DIFF 01/15/2022 CBC w DIFF 12/07/2024 CBC w DIFF 02/06/2021 CBC w DIFF 09/13/2021 CBC w DIFF 11/08/2020 CBC w DIFF 03/02/2025 CBC w DIFF 06/14/2021 VITAMIN D 25-OH TOTAL 01/15/2022 VITAMIN D 25-OH TOTAL 11/08/2020 CBC WITH AUTO DIFF 09/24/2024 CBC WITH AUTO DIFF 04/06/2024 CBC WITH AUTO DIFF 12/06/2023 Lipid Panel 06/14/2021 Lipid Panel 05/14/2022 Lipid Panel 04/06/2024 Lipid Panel 12/07/2024 Lipid Panel 09/13/2021 Lipid Panel 12/06/2023 Vitamin D 25-OH Total 05/14/2022 Hemoglobin A1c 04/06/2024 Next Appt Details Provider Name:Elías Rangel , 07/02/2025 10:30:00 AM, [address] [place] [address] YANI MENDES, SANDIE MOYA, [phone], Provider Name:Elías Rangel , 12/08/2025 02:00:00 PM, [address] [place] [address] YANI MENDES, SANDIE MOYA, [phone], Insurance Providers Payer Name Payer Address Payer Phone Subscriber Number Group Number Insured Name Patient Relationship to Insured Coverage Start Date Coverage End Date MEDICARE NGS [address] [place] [address] [id number] VINH KORY Self - patient is the insured [employer] [address] [place], [place] [id number] KORY ELI Self - patient is the insured Medical (General) History Medical History History ICD Code GERD (gastroesophageal reflux disease) K 21.9 Hypertension I10 Depression F32.9 hyperlipidemia allergic to penicillin obesity hemorrhoids hearing loss tendinitis PTSD colitis inpt [facility] 12/2024 Surgical History Surgery Date(Month/Year) No history Hospitalization History Reason Date(Month/Year) colitits in[facility] 12/2024 diverticulitis [facility] 02/2020
[2025-06-22 11:46] LABS: Prostate Specific Antigen 0.63 ng/mL (<0.05-4.0)
[2025-06-22 12:22] LABS: Alanine Aminotransferase 39 U/L (0-40); Albumin Level 4.1 g/dL (3.5-5.0); Alkaline Phosphatase 61 U/L (39-117); Anion Gap 12 (12-20); Aspartate Amino Transferase 33 U/L (5-37); Blood Urea Nitrogen 17 mg/dL (9-16); Calcium 9.3 mg/dL (8.4-10.2); Carbon Dioxide 26 mmol/L (22-29); Chloride 103 mmol/L (96-108); Cholesterol 162 mg/dL (<200); Estimated Glomerular Filt Rate > 60; HDL Cholesterol 31 mg/dL (>40); Potassium 3.7 mmol/L (3.3-5.1); Sodium 137 mmol/L (135-145); Total Protein 7.0 g/dL (6.5-8.0); Triglycerides 166 mg/dL (<150)
== END 2025-06-22 09:02 | disposition home or self-care (01) ==
LOC: HO.10HDL 09:01
PROVIDERS: Visit Provider Internal Medicine Medical Oncology
DX: Z12.5 Encounter for screening for malignant neoplasm of prostate (principal); E66.9 Obesity, unspecified; E78.2 Mixed hyperlipidemia; R73.03 Prediabetes; N40.0 Benign prostatic hyperplasia without lower urinary tract symptoms
CPT/HCPCS: 36415; 80053; 80061; 84153; 85025